=== PATIENT | male | born 1950 | race Caucasian/White ===

== ENCOUNTER 2017-07-18 13:02 | Emergency (ER) | payer BC, MEDICARE, OTHER ==
[2017-07-18 13:31] VITALS: BP 115/81
[2017-07-18 13:50] LABS: CHLORIDE,CL 104 mmol/L (101-111); SODIUM,NA 136 mmol/L (135-145)
--- NOTE | 2017-07-18 14:03 | EDM.PDOC ---
ED HPI GENERAL MEDICAL PROBLEM - General Chief Complaint: Cardiovascular Problem Stated Complaint: HEART PAIN Time Seen by Provider: 07/18/17 13:50 Source of Information: Reports: Patient History Limitations: Reports: No Limitations - History of Present Illness INITIAL COMMENTS - FREE TEXT/NARRATIVE: This 67 yo male patient reports to the ED with an episode of chest pain. The patient reports he has been having similar symptoms over the past 6 weeks. The patient reports he has not been given anything at this time for symptom resolution. The patient reports he will [facility] for further cardiac work. The patient reports he does not have any pain or symptoms at the time of evaluation in the ED. Onset: Today, Sudden Duration: Resolved Prior to Arrival Location: Reports: Chest Quality: Reports: Ache, Sharp Severity: Severe Improves with: Reports: Rest Worsens with: Reports: None Associated Symptoms: Reports: Shortness of Breath (chronic COPD) Mid-Sternal Chest Pain Score (Numeric/FACES): 2 - Related Data Allergies Allergy/AdvReac Type Severity Reaction Status Date / Time sulfamethoxazole Allergy Intermediate Rash Verified 01/31/14 15:38 [From Bactrim] trimethoprim [From Bactrim] Allergy Intermediate Rash Verified 01/31/14 15:38 etodolac [Etodolac] Allergy Mild Nausea Verified 01/31/14 15:39 azithromycin [From Zithromax] Allergy Rash Verified 01/31/14 15:38 simvastatin Allergy muscle ache Verified 01/31/14 15:39 Home Meds: Home Meds Albuterol [Proventil HFA] 2 puff INH QID PRN 01/31/14 [History] Aspirin [Ecotrin] 81 mg PO BEDTIME 01/31/14 [History] Atenolol [Tenormin] 25 mg PO DAILY 01/31/14 [History] Gabapentin [Neurontin] 300 mg PO BEDTIME 01/31/14 [History] Ibuprofen 800 mg PO DAILY 01/31/14 [History] LORazepam [Ativan] 2 mg PO BEDTIME PRN 01/31/14 [History] Lisinopril 10 mg PO DAILY 01/31/14 [History] Nitroglycerin [Nitrostat] 0.4 mg SL 01/31/14 [History] Pantoprazole Sodium [Protonix] 40 mg PO BID 01/31/14 [History] Simvastatin [Zocor] 20 mg PO DAILY 01/31/14 [History] metFORMIN HCl [Metformin HCl ER] 1,000 mg PO BID 01/31/14 [History] Albuterol [Proventil Neb Soln] 0.83 mg NEB Q4HRRT 02/13/15 [History] Amoxicillin/Clavulanate K [Augmentin 875-125 MG] 1 cap PO BID 02/13/15 [History] Budesonide [Pulmicort Flexhaler] 2 puff IH BID 02/13/15 [History] Flunisolide [Nasalide Nasal [place]] 1 spray SONIYA BID 02/13/15 [History] Naproxen 250 mg PO ASDIRECTED 02/13/15 [History] Tiotropium [Spiriva] 18 mcg INH DAILY 02/13/15 [History] Past Medical History HEENT History: Reports: Impaired Vision Cardiovascular History: Reports: High Cholesterol, Hypertension - Past Surgical History Cardiovascular Surgical History: Reports: Coronary Artery Bypass Social & Family History - Tobacco Use Smoking Status *Q: Former Smoker Years of Tobacco use: 40 Packs/Tins Daily: 1.5 Used Tobacco, but Quit: Yes Month Tobacco Last Used: 2016 Second Hand Smoke Exposure: No - Caffeine Use Caffeine Use: Reports: Coffee, Soda - Alcohol Use Days Per Week of Alcohol Use: 0 - Recreational Drug Use Recreational Drug Use: No ED ROS GENERAL - Review of Systems Review Of Systems: ROS reveals no pertinent complaints other than HPI. ED EXAM, GENERAL - Physical Exam Exam: See Below Exam Limited By: No Limitations General Appearance: Alert, WD/WN, No Apparent Distress Eye Exam: Bilateral Eye: EOMI, Normal Inspection, PERRL Ears: Normal External Exam, Normal Canal, Hearing Grossly Normal, Normal TMs Nose: Normal Inspection, Normal Mucosa, No Blood Throat/Mouth: Normal Inspection, Normal Lips, Normal Teeth, Normal Gums, Normal Oropharynx, Normal Voice, No Airway Compromise Head: Atraumatic, Normocephalic Neck: Normal Inspection, Supple, Non-Tender, Full Range of Motion Respiratory/Chest: No Respiratory Distress, No Accessory Muscle Use, Chest Non- Tender, Decreased Breath Sounds Cardiovascular: Normal Peripheral Pulses, Regular Rate, Rhythm, No Edema, No Gallop, No JVD, No Murmur, No Rub GI/Abdominal: Normal Bowel Sounds, Soft, Non-Tender, No Organomegaly, No Distention, No Abnormal Bruit, No Mass (Male) Exam: Deferred Rectal (Males) Exam: Deferred Back Exam: Normal Inspection, Full Range of Motion, NT Extremities: Normal Inspection, Normal Range of Motion, Non-Tender, Normal Capillary Refill, No Pedal Edema Neurological: Alert, Oriented, CN II-XII Intact, Normal Cognition, Normal Gait, Normal Reflexes, No Motor/Sensory Deficits Psychiatric: Normal Affect, Normal Mood Skin Exam: Warm, Dry, Intact, Normal Color, No Rash Lymphatic: No Adenopathy Course - Vital Signs Last Recorded V/S: Last Vital Signs Temp 36.4 C 07/18/17 13:29 Pulse 67 07/18/17 13:29 Resp 16 07/18/17 13:29 BP 115/81 07/18/17 13:29 Pulse Ox 94 L 07/18/17 13:29 - Orders/Labs/Meds Orders: Active Orders 24 hr Category Date Time Status EKG Documentation Completion [RC] URGENT Care 07/18/17 13:16 Active Labs: Laboratory Tests 07/18/17 07/18/17 Range/Units 13:23 13:23 WBC 6.0 (5.0-10.0) 10^3/uL RBC 4.69 (4.6-6.2) 10^6/uL Hgb 14.7 (14.0-18.0) g/dL Hct 43.6 (40.0-54.0) % MCV 93.0 (80-100) fL MCH 31.3 (27.0-34.0) pg MCHC 33.7 (33.0-35.0) g/dL Plt Count 231 (150-450) 10^3/uL Neut % (Auto) 65.2 (42.2-75.2) % Lymph % (Auto) 22.0 (20.5-50.1) % [place] % (Auto) 10.6 H (2-8) % Eos % (Auto) 1.5 (1.0-3.0) % Baso % (Auto) 0.7 (0.0-1.0) % Sodium 136 (135-145) mmol/L Potassium 3.9 (3.6-5.0) mmol/L Chloride 104 (101-111) mmol/L Carbon Dioxide 23.0 (21.0-31.0) mmol/L Anion Gap 12.9 BUN 14 (7-18) mg/dL Creatinine 1.1 (0.6-1.3) mg/dL Est Cr Clr Drug Dosing 67.50 mL/min Estimated GFR (MDRD) > 60 BUN/Creatinine Ratio 12.72 Glucose 119 H (74-105) mg/dL Calcium 9.3 (8.4-10.2) mg/dl Total Bilirubin 0.5 (0.2-1.0) mg/dL AST 20 (10-42) IU/L ALT 16 (10-60) IU/L Alkaline Phosphatase 101 (42-121) IU/L Troponin I < 0.02 (0.00-0.02) ng/ml Total Protein 6.8 (6.7-8.2) g/dl Albumin 4.2 (3.2-5.5) g/dl Globulin 2.6 Albumin/Globulin Ratio 1.62 Departure - Departure Time of Disposition: 13:59 Disposition: Home, Self-Care 01 Condition: Fair Clinical Impression: Chest pain Qualifiers: Chest pain type: unspecified Qualified Code(s): R07.9 - Chest pain, unspecified Instructions: Angina Pectoris, [id number] Referrals: Miguel Berrios MD [Primary Care Provider] - Forms: ED Department Discharge Care Plan Goals: The patient was advised of the examination, lab and EKG results during the visit. The patient should follow-up with his primary care facility or return to the emergency department. If the patient has any additional symptoms or concerns , the patient should follow-up with his primary care facility or return to the emergency department. - My Orders Last 24 Hours: My Active Orders 07/18/17 13:16 EKG Documentation Completion [RC] URGENT - Assessment/Plan Last 24 Hours: My Active Orders 07/18/17 13:16 EKG Documentation Completion [RC] URGENT
--- NOTE | 2017-07-20 11:00 | EKG ---
07/18/2017 - JEROMY ADORNO - FINDINGS: EKG shows a normal sinus rhythm. There is nonspecific T-wave abnormality in the lateral leads. [facility] /[id number]
== END 2017-07-18 14:13 | disposition home or self-care (01) ==
LOC: DL.ED 13:02
DX: R07.9 Chest pain, unspecified (principal); E78.00 Pure hypercholesterolemia, unspecified; I10 Essential (primary) hypertension; Z88.2 Allergy status to sulfonamides; Z88.8 Allergy status to other drugs, medicaments and biological substances; Z87.891 Personal history of nicotine dependence
CPT/HCPCS: 36415; 80053; 84484; 85025; 93005; 93010; 99284; 99285

== ENCOUNTER 2018-10-01 11:07 | Inpatient (IN) | payer MEDICARE, BC ==
[2018-10-01] MEDS ORDERED: Acetaminophen 325 MG Tab PO PRN (15:01)
[2018-10-01] MEDS ORDERED: Bisacodyl 10 MG Supp RECTAL PRN (15:01)
[2018-10-01] MEDS ORDERED: Ibuprofen 200 MG Tab PO PRN (15:05)
[2018-10-01] MEDS ORDERED: Sucralfate Suspension 1 GM/10 ML Cup PO SCH (17:00)
[2018-10-01] MEDS: metFORMIN 500 MG Tab PO SCH (17:31)
[2018-10-01] MEDS: Pantoprazole 40 MG Tab.CR PO SCH (17:31)
[2018-10-01] MEDS: Simethicone 80 MG Tab.Chew PO SCH ×2 (17:31→21:34)
[2018-10-01] MEDS: Potassium Chloride 10 MEQ Tab.ER PO SCH (17:31)
[2018-10-01] MEDS ORDERED: Albuterol/Ipratropium 3.0-0.5 MG/3 ML Neb Soln NEB ONE (18:10)
[2018-10-01] MEDS ORDERED: NICOTINE INH PRN (18:13)
[2018-10-01] MEDS ORDERED: Calcium Carbonate 500 MG Tab.Chew PO ONE (18:29)
[2018-10-01] MEDS ORDERED: Albuterol 0.083% 2.5 MG/3 ML Neb Soln NEB SCH (19:00)
[2018-10-01] MEDS ORDERED: Albuterol/Ipratropium 3.0-0.5 MG/3 ML Neb Soln NEB SCH (19:00)
[2018-10-01] MEDS: Albuterol/Ipratropium 3.0-0.5 MG/3 ML Neb Soln NEB SCH (21:34)
[2018-10-01] MEDS: Gabapentin 300 MG Cap PO SCH (21:34)
[2018-10-01] MEDS: Aspirin 81 MG Tab.EC PO SCH (21:34)
[2018-10-01] MEDS: Mirtazapine 15 MG Tab PO SCH (21:34)
[2018-10-01] MEDS: Topiramate 100 MG Tab PO SCH (21:35)
[2018-10-01] MEDS: BUDESONIDE INH SCH (21:38)
[2018-10-01] MEDS: FORMOTEROL INH SCH (21:38)
[2018-10-01] MEDS: LORazepam 0.5 MG Tab PO PRN (21:49)
[2018-10-02] MEDS: Pantoprazole 40 MG Tab.CR PO SCH ×2 (06:07→17:46)
[2018-10-02] MEDS: Albuterol/Ipratropium 3.0-0.5 MG/3 ML Neb Soln NEB SCH ×4 (08:54→20:59)
[2018-10-02] MEDS: Finasteride 5 MG Tab PO SCH (09:47)
[2018-10-02] MEDS: Levofloxacin 500 MG Tab PO SCH (09:47)
[2018-10-02] MEDS: Simethicone 80 MG Tab.Chew PO SCH ×4 (09:48→21:02)
[2018-10-02] MEDS: metFORMIN 500 MG Tab PO SCH ×2 (09:48→17:45)
[2018-10-02] MEDS: Calcium Carbonate 500 MG Tab.Chew PO SCH ×2 (09:48→17:48)
[2018-10-02] MEDS: Potassium Chloride 10 MEQ Tab.ER PO SCH ×2 (09:48→17:46)
[2018-10-02] MEDS: Fluticasone Propionate Nasal Spray 16 GM Bottle NASBOTH SCH (09:54)
[2018-10-02] MEDS: BUDESONIDE INH SCH ×2 (09:56→20:59)
[2018-10-02] MEDS: CHOLECALCIFEROL 2000 UNIT PO SCH (09:56)
[2018-10-02] MEDS: FORMOTEROL INH SCH ×2 (09:56→20:59)
[2018-10-02] MEDS: Tiotropium Inhaler 18 MCG Inhalation Powder Cap Kit of 5 INH SCH (10:57)
[2018-10-02] MEDS: NICOTINE INH SCH (10:58)
[2018-10-02] MEDS: [UNRECOGNIZED DRUG - REMARK] PO SCH ×2 (13:28→20:59)
[2018-10-02] MEDS ORDERED: Docusate Sodium 100 MG Cap PO PRN (17:09)
[2018-10-02] MEDS: Aspirin 81 MG Tab.EC PO SCH (21:00)
[2018-10-02] MEDS: LORazepam 0.5 MG Tab PO PRN (21:00)
[2018-10-02] MEDS: Topiramate 100 MG Tab PO SCH (21:01)
[2018-10-02] MEDS: Mirtazapine 15 MG Tab PO SCH (21:01)
[2018-10-02] MEDS: Gabapentin 300 MG Cap PO SCH (21:02)
[2018-10-03] MEDS: Pantoprazole 40 MG Tab.CR PO SCH ×2 (05:42→17:15)
[2018-10-03] MEDS: Albuterol/Ipratropium 3.0-0.5 MG/3 ML Neb Soln NEB SCH ×5 (08:36→21:05)
[2018-10-03] MEDS: Fluticasone Propionate Nasal Spray 16 GM Bottle NASBOTH SCH (09:41)
[2018-10-03] MEDS: CHOLECALCIFEROL 2000 UNIT PO SCH (09:41)
[2018-10-03] MEDS: Calcium Carbonate 500 MG Tab.Chew PO SCH ×2 (09:42→17:02)
[2018-10-03] MEDS: Potassium Chloride 10 MEQ Tab.ER PO SCH ×2 (09:42→17:15)
[2018-10-03] MEDS: Levofloxacin 500 MG Tab PO SCH (09:43)
[2018-10-03] MEDS: Finasteride 5 MG Tab PO SCH (09:43)
[2018-10-03] MEDS: Simethicone 80 MG Tab.Chew PO SCH ×4 (09:43→21:03)
[2018-10-03] MEDS: metFORMIN 500 MG Tab PO SCH ×2 (09:43→17:16)
[2018-10-03] MEDS: BUDESONIDE INH SCH ×2 (09:45→21:05)
[2018-10-03] MEDS: FORMOTEROL INH SCH ×2 (09:45→21:05)
[2018-10-03] MEDS: [UNRECOGNIZED DRUG - REMARK] PO SCH ×2 (09:45→21:02)
[2018-10-03] MEDS: Tiotropium Inhaler 18 MCG Inhalation Powder Cap Kit of 5 INH SCH (09:46)
[2018-10-03] MEDS: NICOTINE INH SCH (09:50)
[2018-10-03] MEDS: LACTULOSE 10 GM/15 ML PO PRN (14:46)
[2018-10-03] MEDS: Mirtazapine 15 MG Tab PO SCH (21:01)
[2018-10-03] MEDS: Aspirin 81 MG Tab.EC PO SCH (21:01)
[2018-10-03] MEDS: Topiramate 100 MG Tab PO SCH (21:01)
[2018-10-03] MEDS: Gabapentin 300 MG Cap PO SCH (21:01)
[2018-10-03] MEDS: LORazepam 0.5 MG Tab PO PRN (21:12)
[2018-10-04] MEDS: Pantoprazole 40 MG Tab.CR PO SCH ×2 (06:04→17:58)
[2018-10-04] MEDS: Albuterol/Ipratropium 3.0-0.5 MG/3 ML Neb Soln NEB SCH ×4 (09:11→20:51)
[2018-10-04] MEDS: Potassium Chloride 10 MEQ Tab.ER PO SCH ×2 (09:43→17:58)
[2018-10-04] MEDS: metFORMIN 500 MG Tab PO SCH ×2 (09:43→17:58)
[2018-10-04] MEDS: Levofloxacin 500 MG Tab PO SCH (09:44)
[2018-10-04] MEDS: Finasteride 5 MG Tab PO SCH (09:44)
[2018-10-04] MEDS: CHOLECALCIFEROL 2000 UNIT PO SCH (09:45)
[2018-10-04] MEDS: [UNRECOGNIZED DRUG - REMARK] PO SCH ×2 (09:45→20:45)
[2018-10-04] MEDS: Simethicone 80 MG Tab.Chew PO SCH ×4 (09:45→22:26)
[2018-10-04] MEDS: Fluticasone Propionate Nasal Spray 16 GM Bottle NASBOTH SCH (09:46)
[2018-10-04] MEDS: Tiotropium Inhaler 18 MCG Inhalation Powder Cap Kit of 5 INH SCH (09:46)
[2018-10-04] MEDS: Calcium Carbonate 500 MG Tab.Chew PO SCH ×2 (09:46→18:00)
[2018-10-04] MEDS: FORMOTEROL INH SCH ×2 (09:46→20:48)
[2018-10-04] MEDS: BUDESONIDE INH SCH ×2 (09:46→20:48)
[2018-10-04] MEDS: NICOTINE INH SCH (10:11)
[2018-10-04] MEDS: Megestrol Susp 40 MG/ML 10 ML UD Cup PO SCH (11:08)
[2018-10-04] MEDS: Magnesium Hydroxide 400 MG/5 ML Susp 30 ML Cup PO PRN (16:34)
[2018-10-04] MEDS: Aspirin 81 MG Tab.EC PO SCH (20:45)
[2018-10-04] MEDS: Gabapentin 300 MG Cap PO SCH (20:45)
[2018-10-04] MEDS: Topiramate 100 MG Tab PO SCH (20:45)
[2018-10-04] MEDS: LORazepam 0.5 MG Tab PO PRN (20:46)
[2018-10-04] MEDS: Mirtazapine 15 MG Tab PO SCH (20:46)
[2018-10-04] MEDS: LACTULOSE 10 GM/15 ML PO PRN (20:49)
[2018-10-05] MEDS: Pantoprazole 40 MG Tab.CR PO SCH ×2 (06:25→18:44)
[2018-10-05] MEDS: Albuterol/Ipratropium 3.0-0.5 MG/3 ML Neb Soln NEB SCH ×4 (09:11→21:21)
[2018-10-05] MEDS: Megestrol Susp 40 MG/ML 10 ML UD Cup PO SCH (10:06)
[2018-10-05] MEDS: Potassium Chloride 10 MEQ Tab.ER PO SCH ×2 (10:07→18:44)
[2018-10-05] MEDS: Levofloxacin 500 MG Tab PO SCH (10:07)
[2018-10-05] MEDS: Simethicone 80 MG Tab.Chew PO SCH ×4 (10:07→21:22)
[2018-10-05] MEDS: Calcium Carbonate 500 MG Tab.Chew PO SCH ×2 (10:07→18:44)
[2018-10-05] MEDS: metFORMIN 500 MG Tab PO SCH ×2 (10:07→18:44)
[2018-10-05] MEDS: CHOLECALCIFEROL 2000 UNIT PO SCH (10:08)
[2018-10-05] MEDS: FORMOTEROL INH SCH ×2 (10:08→21:23)
[2018-10-05] MEDS: BUDESONIDE INH SCH ×2 (10:08→21:23)
[2018-10-05] MEDS: Finasteride 5 MG Tab PO SCH (10:08)
[2018-10-05] MEDS: NICOTINE INH SCH (10:09)
[2018-10-05] MEDS: Fluticasone Propionate Nasal Spray 16 GM Bottle NASBOTH SCH (10:09)
[2018-10-05] MEDS: [UNRECOGNIZED DRUG - REMARK] PO SCH ×2 (10:09→21:23)
[2018-10-05] MEDS: Tiotropium Inhaler 18 MCG Inhalation Powder Cap Kit of 5 INH SCH (10:10)
[2018-10-05] MEDS: Magnesium Hydroxide 400 MG/5 ML Susp 30 ML Cup PO PRN (18:44)
[2018-10-05] MEDS: Gabapentin 300 MG Cap PO SCH (21:21)
[2018-10-05] MEDS: Aspirin 81 MG Tab.EC PO SCH (21:21)
[2018-10-05] MEDS: Topiramate 100 MG Tab PO SCH (21:22)
[2018-10-05] MEDS: Mirtazapine 15 MG Tab PO SCH (21:22)
[2018-10-05] MEDS: LORazepam 0.5 MG Tab PO PRN (21:39)
[2018-10-06] MEDS: Albuterol 0.083% 2.5 MG/3 ML Neb Soln NEB PRN ×3 (03:23→23:03)
[2018-10-06] MEDS: Pantoprazole 40 MG Tab.CR PO SCH ×2 (06:04→18:05)
[2018-10-06] MEDS: Finasteride 5 MG Tab PO SCH (08:54)
[2018-10-06] MEDS: Potassium Chloride 10 MEQ Tab.ER PO SCH ×2 (08:54→18:05)
[2018-10-06] MEDS: Megestrol Susp 40 MG/ML 10 ML UD Cup PO SCH (08:54)
[2018-10-06] MEDS: Calcium Carbonate 500 MG Tab.Chew PO SCH ×2 (08:54→18:04)
[2018-10-06] MEDS: metFORMIN 500 MG Tab PO SCH ×2 (08:54→18:04)
[2018-10-06] MEDS: Levofloxacin 500 MG Tab PO SCH (08:54)
[2018-10-06] MEDS: Fluticasone Propionate Nasal Spray 16 GM Bottle NASBOTH SCH (08:57)
[2018-10-06] MEDS: [UNRECOGNIZED DRUG - REMARK] PO SCH ×2 (08:57→21:05)
[2018-10-06] MEDS: FORMOTEROL INH SCH ×2 (08:58→21:04)
[2018-10-06] MEDS: BUDESONIDE INH SCH ×2 (08:58→21:04)
[2018-10-06] MEDS: CHOLECALCIFEROL 2000 UNIT PO SCH (08:59)
[2018-10-06] MEDS: Tiotropium Inhaler 18 MCG Inhalation Powder Cap Kit of 5 INH SCH (09:00)
[2018-10-06] MEDS: NICOTINE INH SCH (09:06)
[2018-10-06] MEDS: Simethicone 80 MG Tab.Chew PO SCH ×4 (09:08→21:00)
[2018-10-06] MEDS: Albuterol/Ipratropium 3.0-0.5 MG/3 ML Neb Soln NEB SCH ×4 (09:27→21:00)
[2018-10-06] MEDS ORDERED: Magnesium Citrate Solution 296 ML Bottle PO ONE (14:42)
[2018-10-06] MEDS: Famotidine 20 MG Tab PO SCH (18:04)
[2018-10-06] MEDS: Aspirin 81 MG Tab.EC PO SCH (21:01)
[2018-10-06] MEDS: Topiramate 100 MG Tab PO SCH (21:01)
[2018-10-06] MEDS: LORazepam 0.5 MG Tab PO PRN (21:02)
[2018-10-06] MEDS: Mirtazapine 15 MG Tab PO SCH (21:02)
[2018-10-06] MEDS: Gabapentin 300 MG Cap PO SCH (21:02)
[2018-10-07] MEDS: Famotidine 20 MG Tab PO SCH (06:10)
[2018-10-07] MEDS: Pantoprazole 40 MG Tab.CR PO SCH ×2 (06:10→17:12)
[2018-10-07] MEDS: Albuterol/Ipratropium 3.0-0.5 MG/3 ML Neb Soln NEB SCH ×4 (08:57→20:38)
--- NOTE | 2018-10-07 09:12 | HP ---
REASON FOR ADMISSION TO [facility]ING [facility]: General debility and weakness following acute hospitalization in [place] from 09/25/2018 to 10/01/2018. HISTORY OF PRESENT ILLNESS: Mr. Metzger initially presented to [place] [facility] on 09/25/2018. At that time, his presenting complaint was of hypoglycemia. He was brought in by ambulance from home. The patient's stated that she had gone out and came back to the house. The patient was not responding well and was found unresponsive. Ambulance checked his blood sugar and found it to be 28, but unable to establish IV access, and they gave him a 1- time dose of glucagon IM. He had been seen several days earlier and was started on treatment for pneumonia. He had been given 1 g Rocephin and placed on oral levofloxacin on an outpatient basis. He also fallen at home without any loss of consciousness and was ambulatory following his fall. In the Emergency Department, he was found to be markedly hypotensive. He was initially given fluid boluses, but was eventually placed on a Levophed drip. He was transferred from [place] to the ICU in [place] with clinical impression of possible sepsis due to pneumonia, altered mental status, fall at home, NSTEMI, acute renal failure, hyponatremia, and hypotension. At the time of his admission to [place], further history showed that he has had a 5-day history of diarrhea with poor oral intake prior to his syncopal episode at home. He continued on vasopressors and had severe hypotension. Care in the ICU was focused on replacement of fluids and electrolytes. He was continued on empiric levofloxacin. There was no evidence for an acute [place]. An echocardiogram performed during that admission showed normal left ventricular function with an ejection fraction of 55% to 60%. He has grade [address] scan of the abdomen and pelvis was performed in [place] when he complained of some abdominal pain. He has had outpatient EGD and colonoscopy as well as a barium enema which were negative and did not provide any specific etiology for his pain. CT scan showed markedly distended urinary bladder due to the outlet obstruction from enlarged prostate. He also noted with dilatation of the ureters and mild bilateral hydronephrosis. He has a 4.1 x 3.7 cm infrarenal abdominal aortic aneurysm. He is also noted to have emphysema and fibrotic changes of both lungs. He worked with Physical and Occupational Therapy during the acute admission. He was started on an Ensure. He was advised to stop smoking. A walking desaturation study showed that he did not require oxygen to maintain saturations 89% or better. He will be continued on antibiotic care in [facility]ing [facility]. PAST MEDICAL HISTORY: Coronary artery disease, chronic low back pain, COPD/emphysema, type 2 diabetes, dyslipidemia, panic disorder, peripheral neuropathy, postherpetic neuralgia, peripheral vascular disease, and tobacco abuse with an approximately [id number] history of smoking. A recent CT scan showed a 4.1 x 3.7 cm infrarenal abdominal aortic aneurysm. PAST SURGICAL HISTORY: 1. Colonoscopy in 01/2011. 2. Coronary artery bypass surgery, 2001. FAMILY HISTORY: Noncontributory. SOCIAL HISTORY: He is . He is a current daily smoker of at least a quarter pack of cigarettes a day and has smoked for 46 years. Does not use smokeless tobacco. No alcohol use. IMMUNIZATION HISTORY: 1. PPV23, 08/07/2005. 2. Tdap, 04/13/2008. No history regarding recent influenza or update to Pneumovax. MEDICATIONS: His medication list is reviewed and reconciled and can be found in [facility]. His usual medications will continue. He also will continue on Levaquin 500 mg p.o. daily for 7 days. He will also continue on cefdinir 300 mg twice daily for 10 days. ALLERGIES: 1. Bactrim/sulfa antibiotics. He is intolerant, develops leg pains. 2. Etodolac. 3. Simvastatin. 4. Intolerant to azithromycin which causes muscle cramps. REVIEW OF SYSTEMS: He will continue on treatment for pneumonia. His coronary artery disease is stable. No further chest pain or symptoms of acute coronary syndrome. Because of his frequent falls prior to admission, he will be referred to PT/OT. He had no significant trauma from recent falls. Head CT performed prior to admission was unremarkable. It was normal except for findings of microvascular ischemic disease as well as atrophy. Abdominal pain has improved with the use of calcium carbonate scheduled twice a day as well as sucralfate 1 g p.o. 4 times a day. A number of medications were discontinued before discharge to Swing [facility]. It included atenolol, Fioricet, and lisinopril. Stool cultures were performed because of the ongoing diarrhea prior to admission. Studies included ovum, parasites, screening, stool culture, as well as C. diff. All of these tests returned within normal limits, and no pathogens were identified. Recent lab work also showed mild normocytic anemia. His renal function has returned to baseline with GFR greater than 60. He is also noted to have hypokalemia during recent admission as well. He continues to be a high risk for fall. Vital signs were stable prior to discharge. He is saturating well on room air. He reported no pain to the nursing staff prior to discharge. He is up to the commode with standby assist but refuses assistance and has been going independently to the bathroom. Appetite remains poor. He likes strawberry Ensure. PHYSICAL EXAMINATION: General: He was awake and alert. He appears tired but participated in the visit. Vital Signs: Blood pressure 129/72 on the left, 119/61 on the right; pulse 82 and regular; respiratory rate 18; oxygen saturation 98% on room air; temperature 98.4. Height 5 feet 11 inches, weight 149 pounds 3.2 ounces. HEENT: Unremarkable. ENT was clear. Head is normocephalic and atraumatic. Extraocular motions were intact. Sclerae were nonicteric. Mouth showed moist mucous membranes. Chest: Showed diminished bilateral breath sounds with occasional wheeze. Heart: Showed regular rate and rhythm. Abdomen: Soft, benign, and nontender with active bowel sounds. Extremities: Showed no edema. Skin: Warm and dry to the touch. Neurological: He is grossly intact. IMPRESSION: A 68-year-old man returns following acute admission in [place] from 09/25/2018 until today. He is admitted for recovery from his recent acute illness as well as for general weakness and debility and high fall risk. He will be referred to Physical and Occupational Therapy. PLAN: 1. Usual medications will be continued. 2. He will continue on Levaquin and cefdinir for treatment of pneumonia. 3. Regular diet. He may need supplements because of poor appetite. Previous chart says he does like strawberry Ensure. STEPHON hose was placed for DVT prophylaxis. 4. Continue with bedside glucose checks. We will continue with once daily bedside glucose checks as blood sugars in [place] seem well controlled. CODE STATUS: Full code. CONDITION AT THE TIME OF ADMISSION TO SWING BED: Hemodynamically stable. [facility] /[id number]
[2018-10-07] MEDS: Simethicone 80 MG Tab.Chew PO SCH ×4 (09:16→20:39)
[2018-10-07] MEDS: metFORMIN 500 MG Tab PO SCH ×2 (09:17→17:11)
[2018-10-07] MEDS: Levofloxacin 500 MG Tab PO SCH (09:17)
[2018-10-07] MEDS: Megestrol Susp 40 MG/ML 10 ML UD Cup PO SCH (09:18)
[2018-10-07] MEDS: Finasteride 5 MG Tab PO SCH (09:18)
[2018-10-07] MEDS: Fluticasone Propionate Nasal Spray 16 GM Bottle NASBOTH SCH (09:20)
[2018-10-07] MEDS: CHOLECALCIFEROL 2000 UNIT PO SCH (09:20)
[2018-10-07] MEDS: [UNRECOGNIZED DRUG - REMARK] PO SCH ×2 (09:21→20:46)
[2018-10-07] MEDS: Potassium Chloride 10 MEQ Tab.ER PO SCH ×2 (09:59→17:16)
[2018-10-07] MEDS: NICOTINE INH SCH (10:00)
[2018-10-07] MEDS: Albuterol 0.083% 2.5 MG/3 ML Neb Soln NEB PRN (11:24)
[2018-10-07] MEDS: Tiotropium Inhaler 18 MCG Inhalation Powder Cap Kit of 5 INH SCH ×2 (12:25→20:47)
[2018-10-07] MEDS: BUDESONIDE INH SCH ×2 (13:00→20:47)
[2018-10-07] MEDS: FORMOTEROL INH SCH ×2 (13:00→20:47)
[2018-10-07] MEDS: Calcium Carbonate 500 MG Tab.Chew PO SCH ×2 (16:05→17:11)
[2018-10-07] MEDS: Gabapentin 300 MG Cap PO SCH (20:39)
[2018-10-07] MEDS: Mirtazapine 15 MG Tab PO SCH (20:39)
[2018-10-07] MEDS: Aspirin 81 MG Tab.EC PO SCH (20:39)
[2018-10-07] MEDS: Topiramate 100 MG Tab PO SCH (20:40)
[2018-10-07] MEDS: ZANTAC 150 MG PO SCH (20:41)
[2018-10-07] MEDS: LORazepam 0.5 MG Tab PO PRN (20:42)
[2018-10-08] MEDS: Pantoprazole 40 MG Tab.CR PO SCH ×2 (06:21→17:34)
[2018-10-08] MEDS: Albuterol/Ipratropium 3.0-0.5 MG/3 ML Neb Soln NEB SCH ×4 (09:05→20:47)
[2018-10-08] MEDS: Finasteride 5 MG Tab PO SCH (09:05)
[2018-10-08] MEDS: metFORMIN 500 MG Tab PO SCH ×2 (09:06→17:34)
[2018-10-08] MEDS: Levofloxacin 500 MG Tab PO SCH (09:07)
[2018-10-08] MEDS: Simethicone 80 MG Tab.Chew PO SCH (09:07)
[2018-10-08] MEDS: Potassium Chloride 10 MEQ Tab.ER PO SCH ×2 (09:07→17:34)
[2018-10-08] MEDS: Fluticasone Propionate Nasal Spray 16 GM Bottle NASBOTH SCH (09:08)
[2018-10-08] MEDS: Megestrol Susp 40 MG/ML 10 ML UD Cup PO SCH (09:08)
[2018-10-08] MEDS: Calcium Carbonate 500 MG Tab.Chew PO SCH (09:08)
[2018-10-08] MEDS: [UNRECOGNIZED DRUG - REMARK] PO SCH ×2 (09:09→20:47)
[2018-10-08] MEDS: BUDESONIDE INH SCH ×2 (09:10→20:49)
[2018-10-08] MEDS: FORMOTEROL INH SCH ×2 (09:10→20:49)
[2018-10-08] MEDS: CHOLECALCIFEROL 2000 UNIT PO SCH (09:10)
[2018-10-08] MEDS: ZANTAC 150 MG PO SCH ×2 (09:10→20:48)
[2018-10-08] MEDS: NICOTINE INH SCH (09:18)
[2018-10-08] MEDS ORDERED: Calcium Carbonate 500 MG Tab.Chew PO PRN (10:21)
[2018-10-08] MEDS ORDERED: Simethicone 80 MG Tab.Chew PO PRN (10:22)
[2018-10-08] MEDS: Gabapentin 300 MG Cap PO SCH (20:45)
[2018-10-08] MEDS: Aspirin 81 MG Tab.EC PO SCH (20:45)
[2018-10-08] MEDS: Mirtazapine 15 MG Tab PO SCH (20:45)
[2018-10-08] MEDS: Topiramate 100 MG Tab PO SCH (20:45)
[2018-10-08] MEDS: LORazepam 0.5 MG Tab PO PRN (20:45)
[2018-10-08] MEDS: Tiotropium Inhaler 18 MCG Inhalation Powder Cap Kit of 5 INH SCH (20:47)
[2018-10-09] MEDS: Pantoprazole 40 MG Tab.CR PO SCH (05:51)
[2018-10-09] MEDS: Albuterol/Ipratropium 3.0-0.5 MG/3 ML Neb Soln NEB SCH ×3 (07:25→14:03)
[2018-10-09 07:59] VITALS: BP 152/55
[2018-10-09] MEDS: ZANTAC 150 MG PO SCH (08:21)
[2018-10-09] MEDS: metFORMIN 500 MG Tab PO SCH (08:21)
[2018-10-09] MEDS: Levofloxacin 500 MG Tab PO SCH (08:21)
[2018-10-09] MEDS: Finasteride 5 MG Tab PO SCH (08:21)
[2018-10-09] MEDS: Fluticasone Propionate Nasal Spray 16 GM Bottle NASBOTH SCH (08:21)
[2018-10-09] MEDS: Potassium Chloride 10 MEQ Tab.ER PO SCH (08:21)
[2018-10-09] MEDS: CHOLECALCIFEROL 2000 UNIT PO SCH (08:21)
[2018-10-09] MEDS: NICOTINE INH SCH (08:21)
[2018-10-09] MEDS: FORMOTEROL INH SCH (08:22)
[2018-10-09] MEDS: [UNRECOGNIZED DRUG - REMARK] PO SCH (08:22)
[2018-10-09] MEDS: BUDESONIDE INH SCH (08:22)
[2018-10-09] MEDS: Megestrol Susp 40 MG/ML 10 ML UD Cup PO SCH (08:24)
[2018-10-09] MEDS ORDERED: ZANTAC 150 MG PO SCH (09:40)
[2018-10-09] MEDS ORDERED: Lidocaine 2% Jelly 10 ML Urojet MUCMEM ONE (10:32)
--- NOTE | 2018-10-09 11:12 | PCM.DCSUM1 ---
Discharge Summary - Hospital Course Free Text/Narrative:: 68 y/o male with end-stage COPD/emphysema who was admitted from [facility]. Patient was admitted for weakness and multiple falls at home prior to admission. PT/OT worked with the patient. He was noted to have urinary retention. Agreed to have james catheter placed. Patient is being discharged home with home health nursing and PT. He is to follow up with his PCP Dr. Jensen/Dr. Humphrey and have PCP refer to urologist. Disciplines required in the home: a. Correction: medication management, weight loss/diet; james care. b. PT for strengthening/Home exercise program. Patient requires a walker/1 caregiver in order to leave his home. He displays inability to leave home and leaving home requires taxing effort due to shortness of breath and weakness Diagnosis: Stroke: No - Discharge Data Discharge Date: 10/09/18 Discharge Disposition: Home, W Home Health Agency 06 Condition: Good - Discharge Diagnosis/Problem(s) (1) Weakness SNOMED Code(s): 53126751 ICD Code: R53.1 - WEAKNESS Status: Resolved Current Visit: Yes (2) Fall at home SNOMED Code(s): 27769603 ICD Code: W19.XXXA - UNSPECIFIED FALL, INITIAL ENCOUNTER; Y92.009 - UNSP PLACE IN UNSP NON-INSTITUT (PRIVATE) RESIDENCE PLACE Status: Resolved Current Visit: No (3) Urinary retention due to benign prostatic hyperplasia SNOMED Code(s): 058199142 ICD Code: N40.1 - BENIGN PROSTATIC HYPERPLASIA WITH LOWER URINARY TRACT SYMP ; R33.8 - OTHER RETENTION OF URINE Status: Acute Priority: High Current Visit: Yes - Patient Summary/Data Consults: Consultations 10/01/18 15:04 OT Evaluation and Treatment [CONS] Routine PT Evaluation and Treatment [CONS] Routine - Patient Instructions Diet: Diabetic Diet Activity: As Tolerated Driving: Do Not Drive Showering/Bathing: May Shower Showering/Bathing, Other: With help. Other/Special Instructions: Bloody urine, cloudy urine, or any concerns. - Discharge Plan *PRESCRIPTION DRUG MONITORING PROGRAM REVIEWED*: Not Applicable *COPY OF PRESCRIPTION DRUG MONITORING REPORT IN PATIENT ERNESTINA: Not Applicable Prescriptions/Med Rec: Cefdinir 300 mg PO BIDMEALS #5 capsule Home Medications: Home Meds Albuterol [Proventil HFA] 2 puff INH QID PRN 01/31/14 [History] Aspirin [Ecotrin] 81 mg PO BEDTIME 01/31/14 [History] Gabapentin [Neurontin] 300 mg PO BEDTIME 01/31/14 [History] Albuterol [Proventil Neb Soln] 0.83 mg NEB Q4HRRT 02/13/15 [History] Tiotropium [Spiriva HandiHaler] 18 mcg INH DAILY 02/13/15 [History] Ibuprofen 200 mg PO BID PRN 07/17/18 [History] LORazepam 0.5 mg PO BEDTIME PRN 07/17/18 [History] Mirtazapine 7.5 mg PO BEDTIME 07/17/18 [History] Topiramate 100 mg PO BEDTIME 07/17/18 [History] metFORMIN HCl [Metformin HCl] 1,000 mg PO BID 07/18/18 [History] Albuterol/Ipratropium [DuoNeb 3.0-0.5 MG/3 ML] 3 ml NEB Q4H #60 neb 07/20/18 [Rx ] Budesonide/Formoterol [Symbicort 160-4.5 MCG] 2 puff INH BID 09/25/18 [History] Cyclobenzaprine [Flexeril] 5 mg PO Q8H PRN 09/25/18 [History] Fluticasone Propionate [Flonase] 1 spray NASBOTH DAILY 09/25/18 [History] Pantoprazole Sodium [Protonix] 40 mg PO DAILY PRN 09/25/18 [History] atorvaSTATin [Lipitor] 5 mg PO BEDTIME 09/25/18 [History] Cholecalciferol (Vitamin D3) [Vitamin D3] 2,000 units PO DAILY 10/01/18 [History ] Finasteride [Proscar] 5 mg PO DAILY 10/01/18 [History] Megestrol [Megace 40 MG/ML Susp] 20 ml PO DAILY 10/01/18 [History] Nitroglycerin 0.4 mg SL ASDIRECTED PRN 10/01/18 [History] Potassium Chloride 20 meq PO BID 10/01/18 [History] Simethicone 160 mg PO QID 10/01/18 [History] Sucralfate [Carafate] 10 ml PO QID 10/01/18 [History] Nicotine [Nicotrol NS] 1 inhalation IH DAILY 10/02/18 [History] Ranitidine [Zantac] 150 mg PO BID 10/06/18 [History] Cefdinir 300 mg PO BIDMEALS #5 capsule 10/09/18 [Rx] Megestrol [Megace 40 MG/ML Susp] 400 mg PO DAILY cup 10/09/18 [Rx] Patient Handouts: Indwelling Urinary Catheter Care, Adult, Cefdinir capsules, Hyponatremia, [id number], Indwelling Urinary Catheter Insertion, Hypotension, [id number], Indwelling Urinary Catheter Care, Adult, [id number], Kegel Exercises, Acute Urinary Retention, Male, [id number], Hypoglycemia, Easy-to- Read Referrals: Major Jensen NP [Ordering Only Provider] - - Discharge Summary/Plan Comment DC Time >30 min.: Yes - General Info Date of Service: 10/09/18 Admission Dx/Problem (Free Text: Weakness, recurrent falls. Functional Status: Reports: Ambulating (Weakness. Risk of falls. ), Urinating ( Incontinent of urine. Has urinary retention. ) - Review of Systems General: Reports: Weakness HEENT: Reports: No Symptoms Pulmonary: Reports: Shortness of Breath Cardiovascular: Reports: No Symptoms Gastrointestinal: Reports: No Symptoms Genitourinary: Reports: Incontinence, Other (Urinary retention.) Musculoskeletal: Reports: No Symptoms Skin: Reports: No Symptoms Neurological: Reports: No Symptoms Psychiatric: Reports: No Symptoms - Patient Data Vitals - Most Recent: Last Vital Signs Temp 97.3 F 10/09/18 07:56 Pulse 102 H 10/09/18 07:56 Resp 20 10/09/18 07:56 BP 152/55 H 10/09/18 07:56 Pulse Ox 100 10/09/18 07:56 Orthostatic Blood Pressure [ 105/62 Standing] Orthostatic Blood Pressure [ 110/62 Sitting] Orthostatic Blood Pressure [ 114/63 Supine] Weight - Most Recent: 142 lb 3.2 oz I&O - Last 24 hours: Intake & Output 10/08/18 10/09/18 10/09/18 22:59 06:59 14:59 Intake Total 540 150 Balance 540 150 Lab Results - Last 24 hrs: Laboratory Results - last 24 hr 10/09/18 10/09/18 Range/Units 07:37 09:35 POC Glucose 157 H (83-110) mg/dl Urine Color Yellow (YELLOW) Urine Appearance Clear (CLEAR) Urine pH 7.0 (5.0-9.0) Ur Specific [place] 1.015 (1.005-1.030) Urine Protein Negative (NEGATIVE) Urine Glucose (UA) Negative (NEGATIVE) Urine Ketones Negative (NEGATIVE) Urine Occult Blood Negative (NEGATIVE) Urine Nitrite Negative (NEGATIVE) Urine Bilirubin Negative (NEGATIVE) Urine Urobilinogen 0.2 (0.2-1.0) mg/dL Ur Leukocyte Esterase Negative (NEGATIVE) Med Orders - Current: Current Medications Acetaminophen (Tylenol) 650 mg PO Q4H PRN PRN Reason: Pain (mild 1-3 )/fever Last Admin: 10/05/18 10:16 Dose: 650 mg Albuterol (Proventil Neb Soln) 2.5 mg NEB Q4HRRT PRN PRN Reason: Shortness of Breath Last Admin: 10/07/18 11:24 Dose: 2.5 mg Albuterol/Ipratropium (Duoneb 3.0-0.5 Mg/3 Ml) 3 ml NEB QID [facility] Last Admin: 10/09/18 10:38 Dose: Not Given Aspirin (Halfprin) 81 mg PO BEDTIME [facility] Last Admin: 10/08/18 20:45 Dose: 81 mg Bisacodyl (Dulcolax) 10 mg RECTAL DAILY PRN PRN Reason: Constipation Calcium Carbonate/Glycine (Tums) 500 mg PO BIDM PRN PRN Reason: Cramping Finasteride (Proscar) 5 mg PO DAILY [facility] Last Admin: 10/09/18 08:21 Dose: 5 mg Fluticasone Propionate (Flonase) 0 gm NASBOTH DAILY [facility] Last Admin: 10/09/18 08:21 Dose: 1 spray Gabapentin (Neurontin) 300 mg PO BEDTIME [facility] Last Admin: 10/08/18 20:45 Dose: 300 mg Ibuprofen (Motrin) 200 mg PO BID PRN PRN Reason: Pain Lorazepam (Ativan) 0.5 mg PO BEDTIME PRN PRN Reason: Anxiety Last Admin: 10/08/18 20:45 Dose: 0.5 mg Magnesium Hydroxide (Milk Of Magnesia) 30 ml PO DAILY PRN PRN Reason: Constipation Last Admin: 10/05/18 18:44 Dose: 30 ml Megestrol Acetate (Megace 40 Mg/Ml Susp) 400 mg PO DAILY [facility] Last Admin: 10/09/18 08:24 Dose: 400 mg Metformin HCl (Glucophage) 1,000 mg PO BIDMEALS [facility] Last Admin: 10/09/18 08:21 Dose: 1,000 mg Mirtazapine (Remeron) 7.5 mg PO BEDTIME [facility] Last Admin: 10/08/18 20:45 Dose: 7.5 mg Cefdinir 300mg Cap (*Non-Form Med) 0 each PO BID [facility] Stop: 10/11/18 21:01 Last Admin: 10/09/18 08:22 Dose: 1 each Pantoprazole Sodium (Protonix) 40 mg PO BIDAC [facility] Last Admin: 10/09/18 05:51 Dose: 40 mg Budesonide/Formoterol 160/4.5 * *Pt's Own Med 0 each INH BID [facility] Last Admin: 10/09/18 08:22 Dose: 1 each Cholecalciferol ( Vitamin D3) 2,000 Units Pt's Own Med 0 each PO DAILY [facility] Last Admin: 10/09/18 08:21 Dose: 1 each Nicotine [Nicotrol Inhaler] Pt's Own Med 0 each INH DAILY [facility] Last Admin: 10/09/18 08:21 Dose: Not Given Nicotine [Nicotrol Inhaler] Pt's Own Med 1 each INH QID PRN PRN Reason: Other Lactulose ( Constulose) 10g/15 Ml Soln *Own Med* 0 each PO BEDTIME PRN PRN Reason: Constipation Last Admin: 10/04/18 20:49 Dose: 1 each Zantac 150mg Pt's (Own Med) 0 each PO BID [facility] Potassium Chloride (Klor-Con 10) 20 meq PO BIDMEALS [facility] Last Admin: 10/09/18 08:21 Dose: 20 meq Senna/Docusate Sodium (Senna Plus) 1 tab PO BID [facility] Last Admin: 10/09/18 08:21 Dose: 1 tab Simethicone (Simethicone) 160 mg PO QID PRN PRN Reason: Indigestion Tiotropium [place] (Spiriva Handihaler) 18 mcg INH DAILY@2100 [facility] Last Admin: 10/08/18 20:47 Dose: 1 puff Topiramate (Topamax) 100 mg PO BEDTIME [facility] Last Admin: 10/08/18 20:45 Dose: 100 mg Discontinued Medications Albuterol (Proventil Neb Soln) 2.5 mg NEB Q4HRRT [facility] Albuterol/Ipratropium (Duoneb 3.0-0.5 Mg/3 Ml) 3 ml NEB Q4HRRT [facility] Last Admin: 10/01/18 17:44 Dose: 3 ml Albuterol/Ipratropium (Duoneb 3.0-0.5 Mg/3 Ml) 3 ml NEB ONETIME ONE Stop: 10/01/18 18:11 Last Admin: 10/01/18 21:33 Dose: Not Given Calcium Carbonate/Glycine (Tums) 500 mg PO BIDM [facility] Last Admin: 10/08/18 09:08 Dose: 500 mg Calcium Carbonate/Glycine (Tums) 500 mg PO ONETIME ONE Stop: 10/01/18 18:30 Last Admin: 10/01/18 21:33 Dose: Not Given Docusate Sodium (Colace) 100 mg PO DAILY PRN PRN Reason: Constipation Last Admin: 10/02/18 21:16 Dose: 100 mg Famotidine (Pepcid) 20 mg PO BIDAC [facility] Last Admin: 10/07/18 06:10 Dose: 20 mg Levofloxacin (Levaquin) 500 mg PO DAILY [facility] Stop: 10/09/18 09:01 Last Admin: 10/09/18 08:21 Dose: 500 mg Lidocaine HCl (Xylocaine 2% Jelly) 10 ml MUCMEM ONETIME ONE Stop: 10/09/18 10:33 Last Admin: 10/09/18 11:00 Dose: 10 ml Magnesium Citrate (Citrate Of Magnesia) 296 ml PO ONETIME ONE Stop: 10/06/18 14:43 Last Admin: 10/06/18 15:30 Dose: 296 ml Zantac 150mg Pt's (Own Med) 20 each PO BID [facility] Last Admin: 10/09/18 08:21 Dose: 20 each Senna/Docusate Sodium (Senna Plus) 1 tab PO ONETIME ONE Stop: 10/05/18 10:01 Last Admin: 10/05/18 10:07 Dose: 1 tab Simethicone (Simethicone) 160 mg PO QID [facility] Last Admin: 10/08/18 09:07 Dose: 160 mg Sucralfate (Carafate) 1 gm PO QIDACANDBED [facility] Last Admin: 10/01/18 17:31 Dose: 1 gm Tiotropium [place] (Spiriva Handihaler) 18 mcg INH DAILY [facility] Last Admin: 10/07/18 12:25 Dose: Not Given - Exam General: Reports: Alert, Oriented, Cooperative HEENT: Reports: Pupils Equal, Pupils Reactive, EOMI, Mucous Membr. Moist/[place] Neck: Reports: Supple Lungs: Reports: Clear to Auscultation, Normal Respiratory Effort Cardiovascular: Reports: Regular Rate, Regular Rhythm GI/Abdominal Exam: Normal Bowel Sounds, Soft, Non-Tender, No Organomegaly, No Distention, No Abnormal Bruit, No Mass, Pelvis Stable (Male) Exam: Other (Distended bladder. ) Rectal (Males) Exam: Deferred Back Exam: Reports: Normal Inspection, Other (Deferred) Extremities: Normal Inspection, Normal Range of Motion, Non-Tender, No Pedal Edema, Normal Capillary Refill Skin: Reports: Warm, Dry, Intact Wound/Incisions: Reports: Other (None)
[2018-10-09 13:27] LABS: ANION GAP 14.6
== END 2018-10-09 12:27 | disposition home health service (06) | DRG 947 ==
LOC: DL.MS 13:43 → UNDOADMIN 13:43 → DL.MS 14:56
PROVIDERS: ADMIT Internal Medicine; ATTEND Internal Medicine
DX: R53.1 Weakness (principal); J18.9 Pneumonia, unspecified organism; N13.30 Unspecified hydronephrosis; B02.29 Other postherpetic nervous system involvement; R53.81 Other malaise; N40.1 Benign prostatic hyperplasia with lower urinary tract symptoms; R33.8 Other retention of urine; R29.6 Repeated falls; Z91.81 History of falling; J43.9 Emphysema, unspecified; I25.10 Atherosclerotic heart disease of native coronary artery without angina pectoris; G89.29 Other chronic pain; M54.5 Low back pain; E11.9 Type 2 diabetes mellitus without complications; E78.5 Hyperlipidemia, unspecified; F41.0 Panic disorder [episodic paroxysmal anxiety]; G62.9 Polyneuropathy, unspecified; F17.210 Nicotine dependence, cigarettes, uncomplicated; I71.4 Abdominal aortic aneurysm, without rupture; G31.9 Degenerative disease of nervous system, unspecified; D64.9 Anemia, unspecified; Z95.1 Presence of aortocoronary bypass graft; Z79.899 Other long term (current) drug therapy; Z88.2 Allergy status to sulfonamides; Z88.8 Allergy status to other drugs, medicaments and biological substances
CPT/HCPCS: 36415; 51702; 80069; 81003; 82962; 94640; 97110-GO; 97110-GP; 97116-GP; 97162-GP; 97165-GO; 97530-GO; 97530-GP; A9270-GY; J7613-GY; J7620-GY

== ENCOUNTER 2019-02-13 15:28 | Inpatient (IN) | payer MEDICARE, BC ==
[2019-02-13] MEDS ORDERED: Ondansetron 4 MG Tab.DIS PO PRN (16:23)
[2019-02-13] MEDS ORDERED: Acetaminophen 325 MG Tab PO PRN (16:23)
[2019-02-13] MEDS ORDERED: Nitroglycerin 0.4 MG Tab.SL SL PRN (16:26)
[2019-02-13] MEDS ORDERED: Albuterol 0.083% 2.5 MG/3 ML Neb Soln INH PRN (16:26)
[2019-02-13] MEDS ORDERED: Ibuprofen 200 MG Tab PO PRN (16:26)
[2019-02-13] MEDS ORDERED: Polyethylene Glycol 3350 Powder 17 GM Packet PO PRN (16:26)
[2019-02-13] MEDS ORDERED: Albuterol 6.7 GM Inhaler INH PRN (16:26)
[2019-02-13] MEDS ORDERED: Cyclobenzaprine 10 MG Tab PO PRN (16:26)
[2019-02-13] MEDS ORDERED: Sodium Chloride 0.9% 1,000 ML IV SCH (16:30)
[2019-02-13] MEDS ORDERED: guaiFENesin 100 MG/5 ML Soln 5 ML UD Cup PO PRN (16:34)
[2019-02-13] MEDS ORDERED: Benzonatate 100 MG Cap PO PRN (16:34)
[2019-02-13] MEDS ORDERED: Insulin Lispro 100 Units/ML 3 ML Vial SUBCUT PRN (16:36)
[2019-02-13] MEDS: Budesonide 0.5 MG/2 ML Neb Susp NEB SCH (17:09)
[2019-02-13] MEDS: Albuterol/Ipratropium 3.0-0.5 MG/3 ML Neb Soln NEB SCH (17:09)
[2019-02-13] MEDS: methylPREDNISolone Sodium Succinate 40 MG/1 ML SDV IVPUSH SCH (17:39)
[2019-02-13] MEDS: Levofloxacin/Dextrose 5%-Water 500 MG in Premix Bag 1 BAG IV SCH (17:41)
[2019-02-13] MEDS: Gabapentin 300 MG Cap PO SCH (20:41)
[2019-02-13] MEDS: Famotidine 20 MG Tab PO SCH (20:41)
[2019-02-13] MEDS: Aspirin 81 MG Tab.EC PO SCH (20:41)
[2019-02-13] MEDS: Topiramate 100 MG Tab PO SCH (20:41)
[2019-02-13] MEDS: Mirtazapine 15 MG Tab PO SCH (20:41)
[2019-02-13] MEDS: LORazepam 0.5 MG Tab PO PRN (20:41)
[2019-02-13] MEDS: Insulin Lispro 100 Units/ML 3 ML Vial SUBCUT SCH (20:59)
[2019-02-13] MEDS ORDERED: ROSUVASTATIN 5 MG PO SCH (21:00)
[2019-02-13] MEDS: Heparin Sodium 5,000 Units/ML Vial SUBCUT SCH (21:54)
--- NOTE | 2019-02-14 00:02 | HP ---
CHIEF COMPLAINT: Increasing shortness of breath. HISTORY OF PRESENTING ILLNESS: Mr. Yassine Christiansen is a 68-year-old male with a medical historysignificant for hypertension hyperlipidemia, type 2 diabetes mellitus, coronary artery disease status post coronary artery bypass graft, history of benign prostatic hypertrophy, urinary retention, requiring a Raymundo catheter in place, chronic tobacco use, posttraumatic stress disorder, peripheral vascular disease, peripheral neuropathy, has been doctoring in the outpatient clinic for increasing shortness of breath and has been treated with oral antibiotic steroids and nebulizers and has failed outpatient treatment requiring admission to the hospital. At this time, the patient says that he has been sick for the last 1 week to 10 days, which has been progressively getting worse. He has been increasingly short of breath. He grades the shortness of breath as 8/10 in intensity, which gets aggravated on exertion, relieved with rest. Associated with cough with sputum, which is greenish yellow in color. Denies any fevers or chills. He has been on oral antibiotics including Augmentin in the last 5 to 7 days. Denies any nausea or vomiting, but complains of having diarrhea. He had at least 2 episodes of diarrhea each day in the last 2 to 3 days. Denies any abdominal pain. Denies any sick contacts. Denies any recent travel. The patient denied any history of chest pain on exertion, but has dyspnea on exertion. No history of orthopnea or paroxysmal nocturnal dyspnea. The patient denied any history of hematemesis, hematochezia, or melenic stools. Normal bowel and bladder habits otherwise. REVIEW OF SYSTEMS: A complete review of systems including skin, ear, nose, and throat, cardiovascular system, respiratory system, gastrointestinal system, genitourinary system, hematology, oncology, neurology, allergy, immunology, constitutional were all evaluated and were negative except for the above-said notes. PAST MEDICAL HISTORY: Significant for hypertension, hyperlipidemia, type 2 diabetes mellitus, coronary artery disease status post coronary artery bypass graft, posttraumatic stress disorder, peripheral vascular disease, chronic history of tobacco use, panic disorder, benign prostatic hypertrophy, urinary retention, requiring Raymundo catheter in place. PAST SURGICAL HISTORY: Significant for colonoscopy, coronary artery bypass graft. FAMILY HISTORY: The patient claims that his mom and dad have . SOCIAL HISTORY: The patient continues to smoke 1 pack of cigarettes a day. History of occasional alcohol use. ALLERGIES: The patient noted to have allergies to Bactrim, sulfa, simvastatin, and azithromycin. HOME MEDICATIONS: Include metformin 1000 mg twice a day, Lipitor 5 mg at bedtime, topiramate 100 mg at bedtime, Spiriva 18 mcg inhalation daily, sucralfate 10 mL oral 4 times a day, simethicone 160 mg 4 times a day, ranitidine 150 mg twice a day, potassium chloride 20 mEq twice a day, nitroglycerin 0.4 mg sublingual as needed for chest pain, mirtazapine 7.5 mg at bedtime, lorazepam 0.5 mg at bedtime as needed, Neurontin 300 mg at bedtime, Flonase 1 spray in both the nares daily, Proscar 5 mg daily, Flexeril 5 mg every 8 hours as needed, vitamin D3, 2000 international units daily, aspirin 81 mg daily, DuoNeb every 4 hours, Proventil 2 puffs inhalation 4 times a day as needed. PHYSICAL EXAMINATION: General: The patient is well oriented to time, place, and person. Follows commands spontaneously. Cardiovascular system: S1, S2 heard with normal intensity. No gallops. Respiratory system: Bilateral crepitations at the bases. No wheeze. Abdomen: Soft. Bowel sounds positive. Nontender. No rigidity. Extremities: No edema, bilateral lower extremities. Neurologic: No gross focal neurological deficit. LABORATORY DATA: Labs as obtained from [facility] show sodium 142, potassium 4, chloride 106, bicarb 25.2, BUN 21, creatinine 1.3. WBC 15.4, hemoglobin 15.6, hematocrit 45.8, platelet count 347. ASSESSMENT: 1. Pneumonia. 2. Acute chronic obstructive pulmonary disease exacerbation. 3. Hypertension. 4. Hyperlipidemia. 5. Type 2 diabetes mellitus. 6. Coronary artery disease, status post coronary artery bypass graft. 7. Chronic tobacco use and abuse. PLAN: 1. Pneumonia. The patient presents with cough with sputum with greenish yellow-colored phlegm. He is also noted to have leukocytosis. We will obtain blood cultures and sputum cultures. We will have him on IV antibiotics. He has failed outpatient treatment with Augmentin. We will have him on Levaquin for now as he is allergic to azithromycin. We will titrate the antibiotics once we have the culture reports available. 2. Acute chronic obstructive pulmonary disease exacerbation. The patient does not have any wheeze on physical exam today. We will have him on nebulizer DuoNeb and Pulmicort nebulizer and we will start him on low-dose steroids and we will closely follow. We will encourage the patient to use incentive spirometer and flutter valve. 3. Hypertension. The patient's blood pressure will be closely monitored. Avoid any hypotensive episodes. He is not on any active antihypertensive medications. 4. Type 2 diabetes mellitus. The patient noted to be on metformin. We will hold the metformin while in the hospital. Check his fingersticks with each meal. Have him on supplemental scale insulin as needed for additional coverage of his blood glucose. The patient will be started on some steroids as blood sugars could be elevated. 5. Urinary retention. The patient has chronic indwelling Raymundo catheter in place. Continue the same. He will need Urology consultation as an outpatient. 6. Coronary artery disease. The patient denies any ongoing chest pains. He is not on any beta-sanjuana or ABIODUN inhibitor. We will closely follow. 7. DVT prophylaxis. We will have him on heparin for DVT prophylaxis. 8. Tobacco abuse. The patient is educated about tobacco cessation. Strongly encouraged him to quit smoking, which he understands and verbalized the same. 9. Code status. The patient wants to be full code. 10.Discussed with Major Jensen from Clinic regarding the plan of care. Reviewed the labs and medications. Reviewed the old charts. [facility] /[id number]
[2019-02-14] MEDS: methylPREDNISolone Sodium Succinate 40 MG/1 ML SDV IVPUSH SCH ×3 (01:05→17:41)
[2019-02-14] MEDS: Albuterol/Ipratropium 3.0-0.5 MG/3 ML Neb Soln NEB SCH ×4 (01:05→23:07)
[2019-02-14] MEDS: Heparin Sodium 5,000 Units/ML Vial SUBCUT SCH ×3 (06:21→21:31)
[2019-02-14 06:34] LABS: ANION GAP 14.2
[2019-02-14] MEDS: Budesonide 0.5 MG/2 ML Neb Susp NEB SCH ×3 (06:42→17:46)
[2019-02-14] MEDS: Insulin Lispro 100 Units/ML 3 ML Vial SUBCUT SCH ×4 (08:08→21:21)
[2019-02-14] MEDS: Finasteride 5 MG Tab PO SCH (08:46)
[2019-02-14] MEDS: Montelukast 10 MG Tab PO SCH (08:47)
[2019-02-14] MEDS: Cholecalciferol (Vitamin D3) 1,000 Unit Tab PO SCH (08:47)
[2019-02-14] MEDS: Fluticasone Propionate Nasal Spray 16 GM Bottle NASBOTH SCH (08:47)
[2019-02-14] MEDS: Famotidine 20 MG Tab PO SCH ×2 (08:47→21:12)
[2019-02-14] MEDS: Tiotropium Inhaler 18 MCG Inhalation Powder Cap Kit of 5 INH SCH (08:47)
[2019-02-14] MEDS: Megestrol Susp 40 MG/ML 10 ML UD Cup PO SCH (08:49)
--- NOTE | 2019-02-14 13:15 | PN ---
DATE: 02/14/2019 SUBJECTIVE: Mr. Kuldip Metzger is a 68-year-old male with medical history significant for hypertension, hyperlipidemia, type 2 diabetes mellitus; coronary artery disease, status post coronary artery bypass graft; history of benign prostatic hypertrophy, urinary retention requiring a Raymundo catheter in place, chronic tobacco use, post-traumatic stress disorder, peripheral vascular disease, peripheral neuropathy, admitted to the hospital after failed outpatient treatment for possible pneumonia and COPD exacerbation. For the past 24 hours, the patient continues to have mild shortness of breath 3/10 to 4/10 in intensity, aggravated on exertion, relieved with rest, continued with nebulizers and IV antibiotics and steroids. Denies any abdominal pain. No nausea. No vomiting. No diarrhea. REVIEW OF SYSTEMS: Cardiovascular, respiratory, gastrointestinal, neurology, constitutional were all evaluated. PHYSICAL EXAMINATION: Vital Signs: Temperature of 97.8, pulse of 86, blood pressure 118/81, respiratory rate of 18, and saturating at 97% on room air. General Appearance: The patient is well-oriented to time, place, and person. Follows commands spontaneously. Cardiovascular: S1 and S2 heard with normal intensity. No gallops. Respiratory: Clear to auscultation bilaterally. No wheeze. No crepitations. Abdomen: Soft. Bowel sounds positive. Nontender. No rigidity. No guarding. No rebound tenderness. Extremities: No edema in bilateral lower extremities. Noted to have mild, healing, small, dry wound noted to the lateral aspect of the great toe on the right side. MEDICATIONS: Reviewed. Continue with: 1. Tylenol 650 every 4 hours as needed for pain and fever. 2. DuoNeb 3 mL nebulizer q.8 hourly. 3. Aspirin 81 mg daily. 4. Tessalon Perles 100 mg 3 times a day as needed for cough. 5. Pulmicort 0.5 mg nebulizer twice a day. 6. Vitamin D3 2000 units daily. 7. Flexeril every 8 hours as needed. 8. Pepcid 20 mg twice a day. 9. Proscar 5 mg daily. 10.Flonase daily. 11.Neurontin 300 mg at bedtime. 12.Heparin 5000 subcu q.8 hourly. 13.Levaquin IV daily 500 mg. 14.Magnesium oxide 250 mg twice a day. 15.Methylprednisolone 40 mg IV q.8 hourly. 16.Spiriva 18 mcg inhalation daily. 17.Topamax 100 mg at bedtime. LABORATORY DATA: Reviewed. 1. WBC 10.9, hemoglobin 14.5, hematocrit 42.1, platelet count 316. 2. Sodium 137, potassium 4.2, chloride 110, bicarb 17, BUN 20, creatinine 1.2, and glucose 139. 3. Magnesium 1.03. ASSESSMENT: 1. Pneumonia. 2. Acute chronic obstructive pulmonary disease exacerbation. 3. Hypertension. 4. Hyperlipidemia. 5. Type 2 diabetes mellitus. 6. Coronary artery disease, status post coronary artery bypass graft. 7. Chronic tobacco use and continued use. 8. Hypomagnesemia. PLAN: 1. Pneumonia. The patient is admitted with pneumonia. He is noted to have cough with sputum production, which is greenish-yellow in color. Ordered for blood cultures and sputum cultures. The sputum culture shows polymicrobial lucio. We will follow with ID and susceptibility on the sputum culture. He has tested negative for influenza. We will closely follow. 2. COPD exacerbation. The patient is currently on DuoNeb and Pulmicort nebulizer and also on IV methylprednisone. The patient is encouraged to use incentive spirometer and flutter valve for better pulmonary toileting. 3. Hypertension. The patient's blood pressure seems to be in acceptable range. Continue current treatment plan. 4. Type 2 diabetes mellitus. Check his fingersticks with each meals, have him on supplemental scale insulin as needed. Try to avoid any hypoglycemic episodes. Have him on hypoglycemic protocol. 5. The patient was noted to have elevated lactic acid at the time of admission, but that has improved. 6. Malnutrition. The patient noted to have decreased appetite. The patient is encouraged to use either Boost or Ensure Clear to improve his strength. [facility] /[id number]
[2019-02-14] MEDS: Levofloxacin/Dextrose 5%-Water 500 MG in Premix Bag 1 BAG IV SCH (17:43)
[2019-02-14] MEDS: Aspirin 81 MG Tab.EC PO SCH (21:11)
[2019-02-14] MEDS: Topiramate 100 MG Tab PO SCH (21:12)
[2019-02-14] MEDS: Gabapentin 300 MG Cap PO SCH (21:12)
[2019-02-14] MEDS: LORazepam 0.5 MG Tab PO PRN (21:14)
[2019-02-14] MEDS: Mirtazapine 15 MG Tab PO SCH (21:14)
[2019-02-15] MEDS: methylPREDNISolone Sodium Succinate 40 MG/1 ML SDV IVPUSH SCH ×2 (01:06→08:49)
[2019-02-15] MEDS: Heparin Sodium 5,000 Units/ML Vial SUBCUT SCH ×3 (05:53→21:15)
[2019-02-15 07:11] LABS: ANION GAP 14.2; CHLORIDE,CL 107 mmol/L (101-111); SODIUM,NA 137 mmol/L (135-145)
[2019-02-15] MEDS: Albuterol/Ipratropium 3.0-0.5 MG/3 ML Neb Soln NEB SCH ×3 (08:20→22:15)
[2019-02-15] MEDS: Budesonide 0.5 MG/2 ML Neb Susp NEB SCH ×3 (08:20→17:01)
[2019-02-15] MEDS: Montelukast 10 MG Tab PO SCH (08:49)
[2019-02-15] MEDS: Finasteride 5 MG Tab PO SCH (08:49)
[2019-02-15] MEDS: Fluticasone Propionate Nasal Spray 16 GM Bottle NASBOTH SCH (08:49)
[2019-02-15] MEDS: Tiotropium Inhaler 18 MCG Inhalation Powder Cap Kit of 5 INH SCH (08:49)
[2019-02-15] MEDS: Cholecalciferol (Vitamin D3) 1,000 Unit Tab PO SCH (08:49)
[2019-02-15] MEDS: Famotidine 20 MG Tab PO SCH ×2 (08:49→21:14)
[2019-02-15] MEDS: Insulin Lispro 100 Units/ML 3 ML Vial SUBCUT SCH ×4 (08:50→21:15)
[2019-02-15] MEDS: Megestrol Susp 40 MG/ML 10 ML UD Cup PO SCH (08:58)
--- NOTE | 2019-02-15 11:27 | PN ---
DATE: 02/15/2019 HISTORY: Mr. Kuldip Metzger is a 68-year-old male with a medical history significant for hypertension, hyperlipidemia, type 2 diabetes mellitus, coronary artery disease, status post coronary artery bypass graft, benign prostatic hypertrophy, urinary retention, requiring Raymundo catheter in place, peripheral neuropathy. Admitted with increasing shortness of breath and noted to have pneumonia and COPD exacerbation and has failed outpatient treatment. For the last 24 hours, the patient continues to feel weak and tired. He complains of mild shortness of breath associated with cough. Denies any chest pain. No abdominal pain. No nausea. No vomiting. No diarrhea. REVIEW OF SYSTEMS: Cardiovascular; respiratory; gastrointestinal; neurology; constitutional were all evaluated. PHYSICAL EXAMINATION: Vital Signs: Temperature of 98.2, pulse of 109, blood pressure 122/68, respiratory rate of 20, saturating at 98%. General Appearance: The patient is well oriented to time, place, and person. Follows commands spontaneously. Cardiovascular: S1 and S2 heard with normal intensity. No gallops. Respiratory: Mild wheeze noted. Mild crepitations at the bases. Abdomen: Soft. Bowel sounds positive. Nontender. No rigidity. Extremities: No edema of bilateral lower extremities. Neurology: No gross focal neurological deficit. MEDICATIONS: Reviewed. Continue the same. We will change IV methylprednisone to oral prednisone. Continue with the nebulizer treatment; Pulmicort and DuoNeb nebulizer. He is encouraged to use incentive spirometer and flutter valve. We will change the IV levofloxacin to oral Levaquin. LABORATORY DATA: Sodium 137, potassium 4.2, chloride 107, bicarb 20, BUN 21, creatinine 1.1, glucose 161, magnesium 1.6. ASSESSMENT: 1. Acute chronic obstructive pulmonary disease exacerbation. 2. Possible pneumonia. 3. Hypertension. 4. Hyperlipidemia. 5. Type 2 diabetes mellitus. 6. Coronary artery disease, status post coronary artery bypass graft. 7. Chronic tobacco use and continued use. 8. Hypomagnesemia. PLAN: 1. Pneumonia. The patient does not have any fevers. He is noted have mild leukocytosis; could be resulting from steroids, so for his cultures remained negative. We will switch him to oral antibiotic with Levaquin. 2. Acute COPD exacerbation. Mild wheeze noted on the physical exam. We will continue with DuoNeb and Pulmicort nebulizer. The patient is encouraged to use incentive spirometer and flutter valve. We will switch him to oral steroids at this time. 3. Hypertension. Closely followed. Avoid any hypotensive episodes. 4. Hypomagnesemia. Continue with oral magnesium oxide. We will recheck a magnesium level in a.m. 5. Chronic indwelling Raymundo catheter. The patient is noted to be on Proscar continue the same. 6. Chronic tobacco use. The patient was educated about tobacco cessation on this admission. He is strongly encouraged to quit smoking which he understands and verbalized the same. 7. Malnutrition. The patient is encouraged to drink Ensure Clear. [facility] /[id number]
[2019-02-15] MEDS: Levofloxacin 500 MG Tab PO SCH (12:54)
[2019-02-15] MEDS: Mirtazapine 15 MG Tab PO SCH (21:14)
[2019-02-15] MEDS: Gabapentin 300 MG Cap PO SCH (21:14)
[2019-02-15] MEDS: Aspirin 81 MG Tab.EC PO SCH (21:14)
[2019-02-15] MEDS: Topiramate 100 MG Tab PO SCH (21:16)
[2019-02-16] MEDS: Heparin Sodium 5,000 Units/ML Vial SUBCUT SCH (05:02)
[2019-02-16] MEDS: Budesonide 0.5 MG/2 ML Neb Susp NEB SCH (06:48)
[2019-02-16] MEDS: Albuterol/Ipratropium 3.0-0.5 MG/3 ML Neb Soln NEB SCH (06:48)
[2019-02-16 07:53] VITALS: BP 123/87
[2019-02-16] MEDS ORDERED: FLUVASTATIN 20 MG PO SCH (08:00)
[2019-02-16] MEDS ORDERED: predniSONE 20 MG Tab PO SCH (08:00)
[2019-02-16] MEDS: Finasteride 5 MG Tab PO SCH (09:05)
[2019-02-16] MEDS: Famotidine 20 MG Tab PO SCH (09:06)
[2019-02-16] MEDS: Montelukast 10 MG Tab PO SCH (09:06)
[2019-02-16] MEDS: Cholecalciferol (Vitamin D3) 1,000 Unit Tab PO SCH (09:06)
[2019-02-16] MEDS: Fluticasone Propionate Nasal Spray 16 GM Bottle NASBOTH SCH (09:07)
[2019-02-16] MEDS: Megestrol Susp 40 MG/ML 10 ML UD Cup PO SCH (09:08)
[2019-02-16] MEDS: Tiotropium Inhaler 18 MCG Inhalation Powder Cap Kit of 5 INH SCH (09:08)
[2019-02-16] MEDS: Insulin Lispro 100 Units/ML 3 ML Vial SUBCUT SCH (09:13)
[2019-02-16] MEDS: Levofloxacin 500 MG Tab PO SCH (12:22)
--- NOTE | 2019-02-16 14:27 | DISCH ---
ADMITTING DIAGNOSES: 1. Acute chronic obstructive pulmonary disease exacerbation. 2. Possible pneumonia. DISCHARGE DIAGNOSES: 1. Acute Chronic obstructive pulmonary disease exacerbation, improved. 2. Possible pneumonia, resolved with oral antibiotic. 3. Generalized weakness and debility from malnutrition. The patient encouraged to have good oral intake and he will benefit from dietitian consultation as an outpatient. HISTORY OF PRESENTING ILLNESS: Mr. Kuldip Metzger is a 68-year-old male with a medical history significant for hypertension, hyperlipidemia, type 2 diabetes mellitus, coronary artery disease, status post coronary artery bypass graft; history of benign prostatic hypertrophy, urinary retention, requiring a Raymundo catheter in place, chronic tobacco use, admitted to the hospital with complaints of increasing shortness of breath and noted to be in COPD exacerbation with underlying possible pneumonia and generalized weakness from malnutrition. While in the hospital, the patient was treated with IV antibiotic with Levaquin. He responded well to the treatment. He was also given IV methylprednisone and also nebulizer treatment. He was advised to continue with incentive spirometer and flutter valve. He will be advised to follow with primary care physician next 1 week of time. He is given prescription for DuoNeb nebulizer and we will continue with budesonide inhalation twice a day at home. He is advised to follow with Pulmonary Clinic as an outpatient. He says he follows with the [place] [facility]. He is advised to follow with them as an outpatient. He is given tapered dose of steroids and also oral antibiotic. He is discharged home in stable condition. DISCHARGE MEDICATIONS: Include: 1. Proventil 2 puffs inhalation 4 times a day as needed for dyspnea. 2. DuoNeb 3 mL nebulizer inhalation 3 times a day. 3. Aspirin 81 mg at bedtime. 4. Symbicort 2 puffs inhalation twice daily. 5. Vitamin D3 2000 units daily. 6. Flexeril 5 mg every 8 hours as needed for muscle pains relaxant. 7. Proscar 5 mg daily. 8. Flonase 1 spray in nostril both daily. 9. Fluvastatin 20 mg on Saturday, Saturday, and Saturday. 10.Neurontin 300 mg at bedtime. 11.Ibuprofen 200 mg twice a day. 12.Lorazepam 0.25 mg at bedtime. 13.Magnesium oxide 250 mg twice daily. 14.Megace 10 mL oral daily. 15.Mirtazepine 7.5 mg at bedtime. 16.Singulair 10 mg daily. 17.Nicotine inhalation daily. 18.Nitroglycerin 0.4 mg sublingual as needed for chest pain. 19.MiraLax 17 g oral daily for constipation. 20.Zantac 150 mg twice a day. 21.Rosuvastatin 2.5 mg as directed on Saturday, Saturday, and Saturday. 22.Senokot 2 tablets twice a day. 23.Spiriva 18 mcg inhalation daily. 24.Topiramate 100 mg at bedtime. 25.Levofloxacin 500 mg daily for next 5 days. 26.Metformin 1000 mg twice a day. 27.Prednisone tapered dose. PHYSICAL EXAMINATION: On the day of discharge: Vital Signs: Temperature of 98, pulse of 80, blood pressure 123/87, respiratory rate of 18, and saturating at 95% on room air. General Appearance: The patient is well oriented to time, place, and person. Follows commands spontaneously. Cardiovascular: S1 and S2 heard with normal intensity. No gallops. Respiratory: Clear to auscultation bilaterally. No wheeze. No crepitations. Abdomen: Soft. Bowel sounds positive. Nontender. No rigidity. Extremities: No edema of bilateral lower extremities. Neurology: No gross focal neurological deficits. CONDITION ON ADMISSION: Poor. CONDITION ON DISCHARGE: Stable. DIET: Cardiac healthy diet and consistent carbohydrate diet. ACTIVITY: As tolerated. FOLLOWUP: Follow with primary care physician next 1 week of time. I spent over 35 minutes of time in evaluating and treating this patient and making discharge plans. [facility] /[id number] ISHA
== END 2019-02-16 12:50 | disposition home or self-care (01) | DRG 190 ==
LOC: DL.MS 15:28 → UNDOADMIN 15:28 → DL.MS 16:23
PROVIDERS: ADMIT Internal Medicine; ATTEND Internal Medicine
DX: J44.1 Chronic obstructive pulmonary disease with (acute) exacerbation (principal); J18.9 Pneumonia, unspecified organism; E46 Unspecified protein-calorie malnutrition; Z68.1 Body mass index [BMI] 19.9 or less, adult; I10 Essential (primary) hypertension; E78.5 Hyperlipidemia, unspecified; I25.10 Atherosclerotic heart disease of native coronary artery without angina pectoris; F43.10 Post-traumatic stress disorder, unspecified; E11.51 Type 2 diabetes mellitus with diabetic peripheral angiopathy without gangrene; R33.9 Retention of urine, unspecified; E83.42 Hypomagnesemia; E11.42 Type 2 diabetes mellitus with diabetic polyneuropathy; F41.0 Panic disorder [episodic paroxysmal anxiety]; F17.210 Nicotine dependence, cigarettes, uncomplicated; Z88.1 Allergy status to other antibiotic agents; Z88.2 Allergy status to sulfonamides; Z88.8 Allergy status to other drugs, medicaments and biological substances; Z95.1 Presence of aortocoronary bypass graft; Z79.84 Long term (current) use of oral hypoglycemic drugs; Z79.82 Long term (current) use of aspirin
CPT/HCPCS: 36415; 80048; 82962; 83605; 83735; 84100; 85027; 87040; 87070; 87077; 87186; 87205; 87804; 94010; 94640; 94667; 97162-GP; 97165-GO; A4217; A9270-GY; J1815; J1956; J2920; J7030; J7613-GY; J7620-GY

== ENCOUNTER 2019-12-23 10:53 | Inpatient (IN) | payer MEDICARE, BC, OTHER ==
--- NOTE | 2019-12-23 11:22 | EDM.PDOC ---
ED HPI GENERAL MEDICAL PROBLEM - General Chief Complaint: Respiratory Problem Stated Complaint: SHORTNESS OF BREATH Time Seen by Provider: 12/23/19 11:05 Source of Information: Reports: Patient History Limitations: Reports: No Limitations - History of Present Illness INITIAL COMMENTS - FREE TEXT/NARRATIVE: This 69 yo male patient reports to the ED with increased shortness of breath. The patient reports he has been having shortness of breath for years (COPD), but it has been worse lately. The patient was started on Levaquin and Prednisone last Saturday (12/15/19) and has been taking them as prescribed. The patient reports he was seen again in the Clinic on Saturday. At the conclusion of that visit, the patient was advised to continue to take the medications, but if his symptoms continue to go to the emergency department for further evaluation. The patient reports he has done 3 nebulizer treatments today with no improvement in his symptoms. The patient reports he smokes 1 -1 1/2 packs of cigarettes per day and has had 4 cigarettes today. 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: Breathing Treatments, Other Medication(s) - Related Data Allergies Allergy/AdvReac Type Severity Reaction Status Date / Time sulfamethoxazole Allergy Intermediate Rash Verified 12/23/19 10:59 [From Bactrim] trimethoprim [From Bactrim] Allergy Intermediate Rash Verified 12/23/19 10:59 etodolac [Etodolac] Allergy Mild Nausea Verified 12/23/19 10:59 azithromycin [From Zithromax] Allergy Rash Verified 12/23/19 10:59 simvastatin Allergy muscle ache Verified 12/23/19 10:59 Sulfa (Sulfonamide Allergy Cannot Verified 12/23/19 10:59 Antibiotics) Remember Home Meds: Home Meds Albuterol [Proventil HFA] 2 puff INH QID PRN 01/31/14 [History] Aspirin [Ecotrin EC] 81 mg PO BEDTIME 01/31/14 [History] Gabapentin [Neurontin] 300 mg PO BEDTIME 01/31/14 [History] Tiotropium [Spiriva HandiHaler] 18 mcg INH DAILY 02/13/15 [History] Ibuprofen 200 mg PO BID PRN 07/17/18 [History] LORazepam 0.25 mg PO BEDTIME PRN 07/17/18 [History] Mirtazapine 7.5 mg PO BEDTIME 07/17/18 [History] Topiramate 100 mg PO BEDTIME 07/17/18 [History] metFORMIN HCl [Metformin HCl] 1,000 mg PO BID 07/18/18 [History] Budesonide/Formoterol [Symbicort 160-4.5 MCG] 2 puff INH BID 09/25/18 [History] Cyclobenzaprine [Flexeril] 5 mg PO Q8H PRN 09/25/18 [History] Fluticasone Propionate [Flonase] 1 spray NASBOTH DAILY 09/25/18 [History] Cholecalciferol (Vitamin D3) [Vitamin D3] 2,000 units PO DAILY 10/01/18 [History ] Finasteride [Proscar] 5 mg PO DAILY 10/01/18 [History] Megestrol [Megace 40 MG/ML Susp] 10 ml PO DAILY 10/01/18 [History] Nitroglycerin 0.4 mg SL ASDIRECTED PRN 10/01/18 [History] Nicotine [Nicotrol NS] 1 inhalation IH DAILY 10/02/18 [History] Ranitidine [Zantac] 150 mg PO BID 10/06/18 [History] Albuterol [Proventil Neb Soln] 3 ml INH Q4HR PRN 02/13/19 [History] Fluvastatin [Lescol] 20 mg PO .MON,WED,FRI 02/13/19 [History] Montelukast Sodium [Singulair] 10 mg PO DAILY 02/13/19 [History] Rosuvastatin Calcium 2.5 mg PO ASDIRECTED 02/13/19 [History] Sennosides/Docusate Sodium [Senna-S] 2 tab PO BID 02/13/19 [History] polyethylene glycoL 3350 [MiraLAX] 17 gm PO DAILY PRN 02/13/19 [History] Albuterol/Ipratropium [DuoNeb 3.0-0.5 MG/3 ML] 3 ml NEB TID 30 Days #90 neb [Rx] Magnesium Oxide 250 mg PO BIDM 7 Days #14 tablet 02/16/19 [Rx] levoFLOXacin [Levaquin] 500 mg PO Q24H 5 Days #5 tablet 02/16/19 [Rx] predniSONE [Prednisone] 2.5 mg PO DAILY 3 Days #3 tablet 02/16/19 [Rx] predniSONE [Prednisone] 5 mg PO DAILY 3 Days #3 tablet 02/16/19 [Rx] predniSONE [Prednisone] 10 mg PO DAILY 3 Days #3 tablet 02/16/19 [Rx] predniSONE [Prednisone] 20 mg PO DAILY 3 Days #3 tablet 02/16/19 [Rx] Past Medical History HEENT History: Reports: Impaired Vision Cardiovascular History: Reports: High Cholesterol, Hypertension, GA Respiratory History: Reports: COPD, Pneumonia, Recurrent, Pulmonary Fibrosis, SOB Gastrointestinal History: Reports: GERD, Other (See Below) Other Gastrointestinal History: Hernia Repair-unbilical Genitourinary History: Reports: Prostate Disorder, Retention, Urinary Musculoskeletal History: Reports: Other (See Below) Other Musculoskeletal History: rotator cuff tear-right Neurological History: Reports: Concussion, Migraines, Neuropathy, Peripheral Psychiatric History: Reports: Anxiety, PTSD Endocrine/Metabolic History: Reports: Diabetes, Type II - Infectious Disease History Infectious Disease History: Reports: Chicken Pox, Shingles - Past Surgical History Cardiovascular Surgical History: Reports: Coronary Artery Bypass GI Surgical History: Reports: Hernia, Abdominal Neurological Surgical History: Reports: Lumbar Spine Social & Family History - Family History Family Medical History: Noncontributory - Tobacco Use Smoking Status *Q: Current Every Day Smoker Years of Tobacco use: 50 Packs/Tins Daily: 1 - Caffeine Use Caffeine Use: Reports: None - Recreational Drug Use Recreational Drug Use: No ED ROS GENERAL - Review of Systems Review Of Systems: Comprehensive ROS is negative, except as noted in HPI. ED EXAM, GENERAL - Physical Exam Exam: See Below Exam Limited By: No Limitations General Appearance: Alert, WD/WN, Moderate Distress, Thin Eye Exam: Bilateral Eye: EOMI, Normal Inspection, PERRL Ears: Normal External Exam, Normal Canal, Hearing Grossly Normal, Normal TMs Nose: Normal Inspection, Normal Mucosa, No Blood Throat/Mouth: Normal Inspection, Normal Lips, Normal Teeth, Normal Gums, Normal Oropharynx, Normal Voice, No Airway Compromise Head: Atraumatic, Normocephalic Neck: Normal Inspection, Supple, Non-Tender, Full Range of Motion Respiratory/Chest: Decreased Breath Sounds (throughout), Other (atalectic sounds throughout lung bases) Cardiovascular: Normal Peripheral Pulses, Regular Rate, Rhythm, No Edema, No Gallop, No JVD, No Murmur, No Rub GI/Abdominal: Normal Bowel Sounds, Soft, Non-Tender, No Organomegaly, No Distention, No Abnormal Bruit, No Mass (Male) Exam: Deferred Rectal (Males) Exam: Deferred Back Exam: Normal Inspection, Full Range of Motion, NT Extremities: Normal Inspection, Normal Range of Motion, Non-Tender, Normal Capillary Refill, No Pedal Edema Neurological: Alert, Oriented, CN II-XII Intact, Normal Cognition, Normal Gait, Normal Reflexes, No Motor/Sensory Deficits Psychiatric: Normal Affect, Normal Mood Skin Exam: Warm, Dry, Intact, Normal Color, No Rash Lymphatic: No Adenopathy Course - Vital Signs Last Recorded V/S: Last Vital Signs Temp 36.7 C 12/23/19 10:56 Pulse 96 12/23/19 10:56 Resp 20 12/23/19 10:56 BP 137/74 12/23/19 10:56 Pulse Ox 94 L 12/23/19 10:56 - Orders/Labs/Meds Orders: Active Orders 24 hr Category Date Time Status EKG Documentation Completion [RC] URGENT Care 12/23/19 11:16 Active CULTURE BLOOD [BC] Stat Lab 12/23/19 11:35 Received CULTURE BLOOD [BC] Stat Lab 12/23/19 12:44 Ordered Piperacillin/Tazobactam [Zosyn] 3.375 gm Med 12/23/19 12:50 Ordered Sodium Chloride 0.9% [Normal Saline] 100 ml IV ONETIME Sodium Chloride 0.9% [Normal Saline] 1,000 ml Med 12/23/19 12:50 Ordered IV .BOLUS Medication Orders Piperacillin Sod/Tazobactam (Sod 3.375 gm/ Sodium Chloride) 100 mls @ 200 mls/ hr IV ONETIME ONE Stop: 12/23/19 13:19 Sodium Chloride (Normal Saline) 1,000 mls @ 250 mls/hr IV .BOLUS ONE Stop: 12/23/19 16:49 Labs: Laboratory Tests 12/23/19 12/23/19 12/23/19 Range/Units 11:37 11:37 11:37 WBC 16.6 H (5.0-10.0) 10^3/uL RBC 4.45 L (4.6-6.2) 10^6/uL Hgb 14.0 (14.0-18.0) g/dL Hct 42.8 (40.0-54.0) % MCV 96.2 D (80-100) fL MCH 31.5 (27.0-34.0) pg MCHC 32.7 L (33.0-35.0) g/dL Plt Count 174 D (150-450) 10^3/uL Neut % (Auto) 95.8 H (42.2-75.2) % Lymph % (Auto) 2.1 L (20.5-50.1) % Lassen % (Auto) 1.7 L (2-8) % Eos % (Auto) 0.2 L (1.0-3.0) % Baso % (Auto) 0.2 (0.0-1.0) % Sodium 139 (136-145) mmol/L Potassium 4.4 (3.5-5.1) mmol/L Chloride 100 (98-107) mmol/L Carbon Dioxide 28 (21-32) mmol/L Anion Gap 15.4 H (7-13) mEq/L BUN 25 H (7-18) mg/dL Creatinine 1.11 (0.70-1.30) mg/dL Est Cr Clr Drug Dosing 51.85 mL/min Estimated GFR (MDRD) > 60 BUN/Creatinine Ratio 22.5 (No establ ref range) Glucose 125 H (74-99) mg/dL Lactic Acid 5.1 H* (0.4-2.0) mmol/L Calcium 8.8 (8.5-10.1) mg/dL Total Bilirubin 0.3 (0.2-1.0) mg/dL AST 14 L (15-37) U/L ALT 17 (16-63) U/L Alkaline Phosphatase 96 (46-116) U/L Troponin I < 0.017 (0.000-0.056) ng/mL Total Protein 6.4 (6.4-8.2) g/dL Albumin 3.5 (3.4-5.0) g/dL Globulin 2.9 Albumin/Globulin Ratio 1.2 Meds: Medications Generic Name Dose Route Start Last Admin Trade Name Freq PRN Reason Stop Dose Admin Piperacillin Sod/Tazobactam 100 mls @ 200 mls/hr 12/23/19 12:50 Sod 3.375 gm/ Sodium Chloride IV 12/23/19 13:19 ONETIME ONE Sodium Chloride 1,000 mls @ 250 mls/hr 12/23/19 12:50 Normal Saline IV 12/23/19 16:49 .BOLUS ONE Departure - Departure Time of Disposition: 12:54 Disposition: Admitted As Inpatient 64 Condition: Serious Clinical Impression: COPD exacerbation Pneumonia Qualifiers: Pneumonia type: due to unspecified organism Laterality: unspecified laterality Lung location: unspecified part of lung Qualified Code(s): J18.9 - Pneumonia, unspecified organism - Discharge Information *PRESCRIPTION DRUG MONITORING PROGRAM REVIEWED*: Not Applicable *COPY OF PRESCRIPTION DRUG MONITORING REPORT IN PATIENT ERNESTINA: Not Applicable Care Plan Goals: Discussed the patient's history, examination, lab, EKG and x-ray results with Dr. Lopez. Dr. Lopez accepted the patient for continued evaluation and management as an inpatient at [facility]. Sepsis Event Note - Evaluation Sepsis Screening Result: No Definite Risk - Focused Exam Vital Signs: Vital Signs Temp Pulse Resp BP Pulse Ox 12/23/19 10:56 36.7 C 96 20 137/74 94 L Date Exam was Performed: 12/23/19 Time Exam was Performed: 12:53 - My Orders Last 24 Hours: My Active Orders 12/23/19 11:16 EKG Documentation Completion [RC] URGENT 12/23/19 11:35 CULTURE BLOOD [BC] Stat 12/23/19 12:44 CULTURE BLOOD [BC] Stat 12/23/19 12:50 Piperacillin/Tazobactam [Zosyn] 3.375 gm Sodium Chloride 0.9% [Normal Saline] 100 ml IV ONETIME Sodium Chloride 0.9% [Normal Saline] 1,000 ml IV .BOLUS - Assessment/Plan Last 24 Hours: My Active Orders 12/23/19 11:16 EKG Documentation Completion [RC] URGENT 12/23/19 11:35 CULTURE BLOOD [BC] Stat 12/23/19 12:44 CULTURE BLOOD [BC] Stat 12/23/19 12:50 Piperacillin/Tazobactam [Zosyn] 3.375 gm Sodium Chloride 0.9% [Normal Saline] 100 ml IV ONETIME Sodium Chloride 0.9% [Normal Saline] 1,000 ml IV .BOLUS
[2019-12-23 12:05] LABS: ANION GAP 15.4 mEq/L (7-13); CHLORIDE,CL 100 mmol/L (98-107); SODIUM,NA 139 mmol/L (136-145)
--- NOTE | 2019-12-23 12:38 | CR ---
EXAMINATION: Chest 2V SEX: Male AGE: 69 years CLINICAL HISTORY: 75-year-old male (smoker with COPD) complaining of short of breath. INTERPRETATION: Abnormal but unchanged when compared to 25 September 2018 exam. 1. Sternotomy wires and external cardiac moderate. 2. Small cardiac silhouette with prominent proximal pulmonary artery segments. No pulmonary vascular congestion, cephalization of vascular flow, alveolar edema or new dependent pleural fluid accumulation. 3. No new lung mass or hilar lymphadenopathy. 4. Chronic generalized air trapping and bullous emphysematous changes (pleural-parenchymal scarring left base). 5. No new focal lobar consolidation IE no new infiltrate, atelectasis or collapse. 6. No pneumothorax or pneumomediastinum. CONCLUSION: No acute new cardiopulmonary abnormality.
[2019-12-23] MEDS ORDERED: Piperacillin/Tazobactam 3.375 GM in Sodium Chloride 0.9% 100 ML IV ONE (12:50)
[2019-12-23] MEDS ORDERED: Sodium Chloride 0.9% 1,000 ML IV ONE ×2 (12:50→17:00)
[2019-12-23] MEDS ORDERED: Magnesium Hydroxide 400 MG/5 ML Susp 30 ML Cup PO PRN (14:28)
[2019-12-23] MEDS ORDERED: Acetaminophen 325 MG Tab PO PRN (14:28)
[2019-12-23] MEDS ORDERED: Docusate Sodium 100 MG Cap PO PRN (14:28)
[2019-12-23] MEDS ORDERED: Ondansetron 4 MG/2 ML SDV IVPUSH PRN (14:28)
--- NOTE | 2019-12-23 14:57 | PCM.HP ---
H&P History of Present Illness - General Date of Service: 12/23/19 Admit Problem/Dx: Admission Diagnosis/Problem Admission Diagnosis/Problem Pneumonia Source of Information: Patient History Limitations: Reports: No Limitations - History of Present Illness Initial Comments - Free Text/Narative: Patient is 69-year-old male with past medical history of COPD, continue tobacco abuse and BPH, on March managed with chronic Raymundo. He presented to the ED for evaluation of increasing shortness of breath for the past 2-4 weeks. Patient reports she is having increasing shortness of breath for the past 2-4 weeks. This is getting progressively worse. He was seen on the clinic on the 12/15/19 and was started on Levaquin and Prednisone last and has been taking them as prescribe. There was no improvement uncertain possible to the clinic on Saturday. He was advised to take Synthroid medication and goes to the ED if no further improvement. He came to the ED today because surface of the hospital gotten any better. He had 3 nebulizer treatments today with no improvement. The patient reports he smokes 1 -1 1/2 packs of cigarettes per day and has had 4 cigarettes today. He reports cough productive of greenish sputum. He notes wheezing. He denies fever, but notes chills. He denies chest pain. No history of sick contact or recent travel. He denies abdominal pain, nausea, vomiting, diarrhea. In the ED labs revealed WBC 16.4 with a left shift, anion gap 15.4, lactate 5.1. Chest x-ray showed no acute changes. Onset of Symptoms: Reports: Gradual Duration of Symptoms: Reports: Week(s): Location: Reports: Chest Quality: Reports: Other (SOB) Improves with: Reports: None Worsens with: Reports: None Associated Symptoms: Reports: Cough, cough w sputum, Shortness of Breath - Related Data Allergies/Adverse Reactions: Allergies Allergy/AdvReac Type Severity Reaction Status Date / Time sulfamethoxazole Allergy Intermediate Rash Verified 12/23/19 14:05 [From Bactrim] trimethoprim [From Bactrim] Allergy Intermediate Rash Verified 12/23/19 14:05 etodolac [Etodolac] Allergy Mild Nausea Verified 12/23/19 14:05 azithromycin [From Zithromax] Allergy Rash Verified 12/23/19 14:05 simvastatin Allergy muscle ache Verified 12/23/19 14:05 Sulfa (Sulfonamide Allergy Cannot Verified 12/23/19 14:05 Antibiotics) Remember Home Medications: Home Meds Albuterol [Proventil HFA] 2 puff INH QID PRN 01/31/14 [History] Aspirin [Ecotrin EC] 81 mg PO BEDTIME 01/31/14 [History] Gabapentin [Neurontin] 300 mg PO BEDTIME 01/31/14 [History] Tiotropium [Spiriva HandiHaler] 18 mcg INH DAILY 02/13/15 [History] Ibuprofen 200 mg PO BID PRN 07/17/18 [History] LORazepam 0.25 mg PO BEDTIME PRN 07/17/18 [History] Mirtazapine 7.5 mg PO BEDTIME 07/17/18 [History] Topiramate 100 mg PO BEDTIME 07/17/18 [History] metFORMIN HCl [Metformin HCl] 1,000 mg PO BID 07/18/18 [History] Budesonide/Formoterol [Symbicort 160-4.5 MCG] 2 puff INH BID 09/25/18 [History] Cyclobenzaprine [Flexeril] 5 mg PO Q8H PRN 09/25/18 [History] Fluticasone Propionate [Flonase] 1 spray NASBOTH DAILY 09/25/18 [History] Cholecalciferol (Vitamin D3) [Vitamin D3] 2,000 units PO DAILY 10/01/18 [History ] Finasteride [Proscar] 5 mg PO DAILY 10/01/18 [History] Nitroglycerin 0.4 mg SL ASDIRECTED PRN 10/01/18 [History] Albuterol [Proventil Neb Soln] 3 ml INH Q4HR PRN 02/13/19 [History] Fluvastatin [Lescol] 20 mg PO .MON,WED,FRI 02/13/19 [History] Montelukast Sodium [Singulair] 10 mg PO DAILY 02/13/19 [History] Sennosides/Docusate Sodium [Senna-S] 2 tab PO BID 02/13/19 [History] polyethylene glycoL 3350 [MiraLAX] 17 gm PO DAILY PRN 02/13/19 [History] predniSONE [Prednisone] 20 mg PO DAILY 3 Days #3 tablet 02/16/19 [Rx] Benzonatate 1 cap PO Q6H 12/23/19 [History] Clotrimazole/Betamethasone Dip [Lotrisone Cream] 1 applic TOP BID PRN 12/23/19 [ History] Diazepam [Valium] 5 mg PO Q6H PRN 12/23/19 [History] Menthol/Zinc Oxide [Calmoseptine] 1 applic TOP TID PRN 12/23/19 [History] Mirabegron [Myrbetriq] 50 mg PO DAILY 12/23/19 [History] Past Medical History HEENT History: Reports: Impaired Vision Cardiovascular History: Reports: High Cholesterol, Hypertension, [place] Other Cardiovascular History: Quarduple Bypass Respiratory History: Reports: COPD, Pneumonia, Recurrent, Pulmonary Fibrosis, SOB Gastrointestinal History: Reports: GERD, Other (See Below) Other Gastrointestinal History: Hernia Repair-unbilical Genitourinary History: Reports: Prostate Disorder, Retention, Urinary Musculoskeletal History: Reports: Other (See Below) Other Musculoskeletal History: rotator cuff tear-right Neurological History: Reports: Concussion, Migraines, Neuropathy, Peripheral Psychiatric History: Reports: Anxiety, PTSD Endocrine/Metabolic History: Reports: Diabetes, Type II - Infectious Disease History Infectious Disease History: Reports: Chicken Pox, Shingles - Past Surgical History HEENT Surgical History: Reports: Oral Surgery Other HEENT Surgeries/Procedures: upper and lower dentures Cardiovascular Surgical History: Reports: Coronary Artery Bypass GI Surgical History: Reports: Hernia, Abdominal Neurological Surgical History: Reports: Lumbar Spine Social & Family History - Family History Family Medical History: Noncontributory - Tobacco Use Smoking Status *Q: Current Every Day Smoker Years of Tobacco use: 40 Packs/Tins Daily: 1 Used Tobacco, but Quit: No - Caffeine Use Caffeine Use: Reports: Coffee - Recreational Drug Use Recreational Drug Use: No H&P Review of Systems - Review of Systems: Review Of Systems: See Below General: Reports: Weakness HEENT: Reports: No Symptoms Pulmonary: Reports: Shortness of Breath, Wheezing, Cough Cardiovascular: Reports: No Symptoms Gastrointestinal: Reports: No Symptoms Genitourinary: Reports: No Symptoms Musculoskeletal: Reports: No Symptoms Skin: Reports: No Symptoms Psychiatric: Reports: No Symptoms Neurological: Reports: No Symptoms Hematologic/Lymphatic: Reports: No Symptoms Immunologic: Reports: No Symptoms Exam - Exam Exam: See Below - Vital Signs Vital Signs: Last Vital Signs Temp 98.5 F 12/23/19 13:13 Pulse 98 12/23/19 13:13 Resp 18 12/23/19 13:13 BP 120/68 12/23/19 13:13 Pulse Ox 98 12/23/19 13:13 Weight: 132 lb 6.4 oz - Exam Quality Assessment: Supplemental Oxygen, DVT Prophylaxis General: Alert, Oriented, 4 HEENT: PERRLA, Hearing Intact, Mucosa Moist & [place], Nares Patent, Normal Nasal Septum, Posterior Pharynx Clear, Conjunctiva Clear, EOMI, EACs Clear, TMs Clear Neck: Supple, Trachea Midline, 2 Lungs: Clear to Auscultation, Normal Respiratory Effort Cardiovascular: Regular Rate, Regular Rhythm GI/Abdominal Exam: Normal Bowel Sounds, Soft, Non-Tender, No Organomegaly, No Distention, No Abnormal Bruit, No Mass, Pelvis Stable (Male) Exam: No Hernia, Normal Inspection, Normal Prostate, Circumcised Rectal (Males) Exam: Normal Exam, Normal Rectal Tone, Prostate Normal Back Exam: Normal Inspection, Full Range of Motion, NT Extremities: Normal Inspection, Normal Range of Motion, Non-Tender, No Pedal Edema, Normal Capillary Refill Skin: Warm, Dry, Intact Neurological: Cranial Nerves Intact, Reflexes Equal Bilateral Neuro Extensive - Mental Status: Alert, Oriented x3, Normal Mood/Affect, Normal Cognition Neuro Extensive - Motor, Sensory, Reflexes: CN II-XII Intact, Normal Gait, Normal Reflexes Psychiatric: Alert, Normal Affect, Normal Mood - Patient Data Lab Results Last 24 hrs: Laboratory Results - last 24 hr 12/23/19 12/23/19 12/23/19 Range/Units 11:37 11:37 11:37 WBC 16.6 H (5.0-10.0) 10^3/uL RBC 4.45 L (4.6-6.2) 10^6/uL Hgb 14.0 (14.0-18.0) g/dL Hct 42.8 (40.0-54.0) % MCV 96.2 D (80-100) fL MCH 31.5 (27.0-34.0) pg MCHC 32.7 L (33.0-35.0) g/dL Plt Count 174 D (150-450) 10^3/uL Neut % (Auto) 95.8 H (42.2-75.2) % Lymph % (Auto) 2.1 L (20.5-50.1) % [place] % (Auto) 1.7 L (2-8) % Eos % (Auto) 0.2 L (1.0-3.0) % Baso % (Auto) 0.2 (0.0-1.0) % Sodium 139 (136-145) mmol/L Potassium 4.4 (3.5-5.1) mmol/L Chloride 100 (98-107) mmol/L Carbon Dioxide 28 (21-32) mmol/L Anion Gap 15.4 H (7-13) mEq/L BUN 25 H (7-18) mg/dL Creatinine 1.11 (0.70-1.30) mg/dL Est Cr Clr Drug Dosing 51.85 mL/min Estimated GFR (MDRD) > 60 BUN/Creatinine Ratio 22.5 (No establ ref range) Glucose 125 H (74-99) mg/dL Lactic Acid 5.1 H* (0.4-2.0) mmol/L Calcium 8.8 (8.5-10.1) mg/dL Total Bilirubin 0.3 (0.2-1.0) mg/dL AST 14 L (15-37) U/L ALT 17 (16-63) U/L Alkaline Phosphatase 96 (46-116) U/L Troponin I < 0.017 (0.000-0.056) ng/mL Total Protein 6.4 (6.4-8.2) g/dL Albumin 3.5 (3.4-5.0) g/dL Globulin 2.9 Albumin/Globulin Ratio 1.2 Result Diagrams: 12/23/19 11:37 12/23/19 11:37 - Problem List (1) Sepsis SNOMED Code(s): 85409863 ICD Code: A41.9 - SEPSIS, UNSPECIFIED ORGANISM Status: Acute Current Visit: Yes (2) PNA (pneumonia) SNOMED Code(s): 556405952 ICD Code: J18.9 - PNEUMONIA, UNSPECIFIED ORGANISM Status: Acute Current Visit: Yes Problem List Initiated/Reviewed/Updated: Yes Orders Last 24hrs: Active Orders 24 hr Category Date Time Status Admission Diagnosis [ADT] Urgent ADT 12/23/19 13:00 Ordered Admission Status [Patient Status] [ADT] Routine ADT 12/23/19 13:00 Active Ambulate [RC] ASDIRECTED Care 12/23/19 14:28 Ordered Height and Weight [RC] DAILY Care 12/23/19 14:28 Ordered Intake and Output [RC] QSHIFT Care 12/23/19 14:30 Ordered Oxygen Therapy [RC] PRN Care 12/23/19 14:28 Ordered Pulse Oximetry [RC] PRN Care 12/23/19 14:30 Ordered RT Aerosol Therapy [RC] ASDIRECTED Care 12/23/19 14:32 Ordered VTE/DVT Education [RC] PER UNIT ROUTINE Care 12/23/19 14:28 Ordered Vital Signs [RC] Q4H Care 12/23/19 14:28 Ordered OT Evaluation and Treatment [CONS] Routine Cons 12/23/19 14:28 Ordered PT Evaluation and Treatment [CONS] Routine Cons 12/23/19 14:28 Ordered Respiratory Care Assess and Treatment [CONS] Routine Cons 12/23/19 14:28 Ordered Regular Diet [DIET] Diet 12/23/19 Dinner Ordered CBC W/O DIFF,HEMOGRAM [HEME] DAILY Lab 12/24/19 07:00 Ordered CBC W/O DIFF,HEMOGRAM [HEME] DAILY Lab 12/25/19 07:00 Ordered CBC W/O DIFF,HEMOGRAM [HEME] DAILY Lab 12/26/19 07:00 Ordered CBC W/O DIFF,HEMOGRAM [HEME] DAILY Lab 12/27/19 07:00 Ordered CBC W/O DIFF,HEMOGRAM [HEME] DAILY Lab 12/28/19 07:00 Ordered CBC W/O DIFF,HEMOGRAM [HEME] DAILY Lab 12/29/19 07:00 Ordered COMPREHENSIVE METABOLIC PN,CMP [CHEM] DAILY Lab 12/24/19 07:00 Ordered COMPREHENSIVE METABOLIC PN,CMP [CHEM] DAILY Lab 12/25/19 07:00 Ordered CULTURE BLOOD [BC] Stat Lab 12/23/19 11:35 Received CULTURE BLOOD [BC] Stat Lab 12/23/19 12:59 Received CULTURE SPUTUM + SMEAR [RM] Stat Lab 12/23/19 14:28 Ordered MAGNESIUM [CHEM] Routine Lab 12/23/19 14:28 Ordered PHOSPHORUS [CHEM] Routine Lab 12/23/19 14:28 Ordered Acetaminophen [Tylenol] Med 12/23/19 14:28 Ordered 650 mg PO Q4H PRN Albuterol/Ipratropium [DuoNeb 3.0-0.5 MG/3 ML] Med 12/23/19 14:30 Ordered 3 ml NEB Q4H Docusate Sodium [Colace] Med 12/23/19 14:28 Ordered 100 mg PO BID PRN Heparin Sodium Med 12/23/19 21:00 Ordered 5,000 units SUBCUT Q12HR Magnesium Hydroxide [Milk of Magnesia] Med 12/23/19 14:28 Ordered 30 ml PO Q12H PRN Ondansetron [Zofran] Med 12/23/19 14:28 Ordered 4 mg IVPUSH Q6H PRN Sodium Chloride 0.9% [Normal Saline] 1,000 ml Med 12/23/19 12:50 Active IV .BOLUS Resuscitation Status Routine Resus Stat 12/23/19 14:28 Ordered Medication Orders Acetaminophen (Tylenol) 650 mg PO Q4H PRN PRN Reason: Pain (Mild 1-3)/fever Albuterol/Ipratropium (Duoneb 3.0-0.5 Mg/3 Ml) 3 ml NEB Q4H ANKUR Docusate Sodium (Colace) 100 mg PO BID PRN PRN Reason: Constipation Heparin Sodium (Porcine) (Heparin Sodium) 5,000 units SUBCUT Q12HR ANKUR Sodium Chloride (Normal Saline) 1,000 mls @ 250 mls/hr IV .BOLUS ONE Stop: 12/23/19 16:49 Last Admin: 12/23/19 13:01 Dose: 250 mls/hr Magnesium Hydroxide (Milk Of Magnesia) 30 ml PO Q12H PRN PRN Reason: Constipation Ondansetron HCl (Zofran) 4 mg IVPUSH Q6H PRN PRN Reason: Nausea/Vomiting Assessment/Plan Comment:: #Acute on chronic respiratory failure with hypoxia due to COPD exacerbation versus pneumonia -Patient presented to the ED for evaluation of increasing shortness of breath -He has been using nerbs with no improvement -Admit to medical floor -Duonebs every 4 hourly -Solu-Medrol -Sputum for Gram stain and culture -Respiratory pathogen plan at this -Blood culture 2 -IV Zosyn -Continue supplemental oxygen and wean off as able #Probable Sepsis -Patient if the leukocytosis and elevated lactic and Tachypnea -Sepsis protocol -Serial lactate -IV fluids -Follow blood cultures -IV Zosyn as above #Lyphopenia -Follow up #Type 2 diabetes -On metformin. Hold for now -[facility] -Accu-Cheks -Hypoglycemic protocol #Chronic urinary retention due to BPH -Patient has chronic Raymundo in place -Continue home medication #Full code #Diabetic diet
[2019-12-23] MEDS ORDERED: MENTHOL TOP PRN (15:22)
[2019-12-23] MEDS ORDERED: Diazepam 5 MG Tab PO PRN (15:22)
[2019-12-23] MEDS ORDERED: ZINC OXIDE TOP PRN (15:22)
[2019-12-23] MEDS ORDERED: Albuterol 6.7 GM Inhaler INH PRN (15:22)
[2019-12-23] MEDS ORDERED: Nitroglycerin 0.4 MG Tab.SL SL PRN (15:22)
[2019-12-23] MEDS ORDERED: FLUVASTATIN 20 MG PO SCH (15:30)
[2019-12-23] MEDS: methylPREDNISolone Sodium Succinate 40 MG/1 ML SDV IVPUSH SCH ×2 (16:19→21:51)
[2019-12-23] MEDS: Albuterol/Ipratropium 3.0-0.5 MG/3 ML Neb Soln NEB SCH ×3 (16:19→22:49)
[2019-12-23] MEDS: Sodium Chloride 0.9% 1,000 ML IV SCH ×2 (16:24→20:49)
[2019-12-23] MEDS ORDERED: Sodium Chloride 0.9% 1,000 ML IV SCH ×2 (17:15→19:00)
[2019-12-23] MEDS: Benzonatate 100 MG Cap PO SCH (18:28)
[2019-12-23] MEDS: Piperacillin/Tazobactam 3.375 GM in Sodium Chloride 0.9% 100 ML IV SCH (18:28)
[2019-12-23] MEDS: FORMOTEROL INH SCH (21:19)
[2019-12-23] MEDS: BUDESONIDE INH SCH (21:19)
[2019-12-23] MEDS: Topiramate 100 MG Tab PO SCH (21:20)
[2019-12-23] MEDS: Aspirin 81 MG Tab.EC PO SCH (21:20)
[2019-12-23] MEDS: Mirtazapine 15 MG Tab PO SCH (21:20)
[2019-12-23] MEDS: Gabapentin 300 MG Cap PO SCH (21:22)
[2019-12-23] MEDS: LORazepam 0.5 MG Tab PO PRN (21:22)
[2019-12-23] MEDS: Insulin Lispro 100 Units/ML 3 ML Vial SUBCUT SCH (21:37)
[2019-12-23] MEDS: Heparin Sodium 5,000 Units/ML Vial SUBCUT SCH (21:46)
[2019-12-24] MEDS: Piperacillin/Tazobactam 3.375 GM in Sodium Chloride 0.9% 100 ML IV SCH ×4 (00:28→17:58)
[2019-12-24] MEDS: Benzonatate 100 MG Cap PO SCH ×5 (00:31→23:12)
[2019-12-24] MEDS: Albuterol/Ipratropium 3.0-0.5 MG/3 ML Neb Soln NEB SCH ×6 (03:09→23:12)
[2019-12-24] MEDS: Sodium Chloride 0.9% 1,000 ML IV SCH (05:57)
[2019-12-24] MEDS: methylPREDNISolone Sodium Succinate 40 MG/1 ML SDV IVPUSH SCH ×3 (06:02→21:34)
[2019-12-24 07:37] LABS: ANION GAP 12.8 mEq/L (7-13); CHLORIDE,CL 105 mmol/L (98-107); SODIUM,NA 142 mmol/L (136-145)
[2019-12-24] MEDS: Insulin Lispro 100 Units/ML 3 ML Vial SUBCUT SCH ×4 (08:17→22:20)
[2019-12-24] MEDS: Fluticasone Propionate Nasal Spray 16 GM Bottle NASBOTH SCH (08:56)
[2019-12-24] MEDS: Tiotropium Inhaler 18 MCG Inhalation Powder Cap Kit of 5 INH SCH (08:57)
[2019-12-24] MEDS: Finasteride 5 MG Tab PO SCH (08:58)
[2019-12-24] MEDS: Heparin Sodium 5,000 Units/ML Vial SUBCUT SCH ×2 (08:59→21:11)
[2019-12-24] MEDS: BUDESONIDE INH SCH ×2 (08:59→21:11)
[2019-12-24] MEDS: FORMOTEROL INH SCH ×2 (08:59→21:11)
[2019-12-24] MEDS ORDERED: Non-Formulary Medication 1 Each (Mirabegron [Myrbetriq] 50 MG) PO SCH (09:00)
--- NOTE | 2019-12-24 11:16 | PCM.PN ---
- General Info Date of Service: 12/24/19 Admission Dx/Problem (Free Text): Admission Diagnosis/Problem Admission Diagnosis/Problem Pneumonia Subjective Update: Patient is 69-year-old male with past medical history of COPD, continue tobacco abuse and BPH, chronic urinary retention managed with chronic Raymundo. He presented to the ED for evaluation of increasing shortness of breath for the past 2-4 weeks. He was admitted for acute on chronic respiratory failure due to COPD exacerbation and sepsis. Today patient was seen and examined. He is doing fairly okay. He reports significant improvement compared to yesterday. SOB has improved. He denies fever , chills. He denies abdominal pain, nausea, vomiting, diarrhea. Labs reviewed. Leukocytosis improved. . Functional Status: Reports: Pain Controlled - Review of Systems General: Reports: Weakness, Fatigue, Appetite (poor) HEENT: Reports: No Symptoms Pulmonary: Reports: Cough, Wheezing Cardiovascular: Reports: No Symptoms Gastrointestinal: Reports: No Symptoms Genitourinary: Reports: No Symptoms Musculoskeletal: Reports: No Symptoms Skin: Reports: No Symptoms Neurological: Reports: No Symptoms Psychiatric: Reports: No Symptoms - Patient Data Vitals - Most Recent: Last Vital Signs Temp 98 F 12/24/19 07:46 Pulse 71 12/24/19 07:46 Resp 20 12/24/19 07:46 BP 130/74 12/24/19 07:46 Pulse Ox 100 12/24/19 07:46 Weight - Most Recent: 130 lb I&O - Last 24 Hours: Intake & Output 12/23/19 12/24/19 12/24/19 22:59 06:59 14:59 Intake Total 3718 2100 480 Output Total 850 3350 Balance 2868 -1250 480 Lab Results Last 24 Hours: Laboratory Results - last 24 hr 12/23/19 12/23/19 12/23/19 Range/Units 11:37 11:37 11:37 WBC 16.6 H (5.0-10.0) 10^3/uL RBC 4.45 L (4.6-6.2) 10^6/uL Hgb 14.0 (14.0-18.0) g/dL Hct 42.8 (40.0-54.0) % MCV 96.2 D (80-100) fL MCH 31.5 (27.0-34.0) pg MCHC 32.7 L (33.0-35.0) g/dL Plt Count 174 D (150-450) 10^3/uL Neut % (Auto) 95.8 H (42.2-75.2) % Lymph % (Auto) 2.1 L (20.5-50.1) % Foard % (Auto) 1.7 L (2-8) % Eos % (Auto) 0.2 L (1.0-3.0) % Baso % (Auto) 0.2 (0.0-1.0) % Sodium 139 (136-145) mmol/L Potassium 4.4 (3.5-5.1) mmol/L Chloride 100 (98-107) mmol/L Carbon Dioxide 28 (21-32) mmol/L Anion Gap 15.4 H (7-13) mEq/L BUN 25 H (7-18) mg/dL Creatinine 1.11 (0.70-1.30) mg/dL Est Cr Clr Drug Dosing 51.85 mL/min Estimated GFR (MDRD) > 60 BUN/Creatinine Ratio 22.5 (No establ ref range) Glucose 125 H (74-99) mg/dL POC Glucose (83-110) mg/dl Lactic Acid 5.1 H* (0.4-2.0) mmol/L Calcium 8.8 (8.5-10.1) mg/dL Phosphorus (2.6-4.7) mg/dL Magnesium (1.8-2.4) mg/dL Total Bilirubin 0.3 (0.2-1.0) mg/dL AST 14 L (15-37) U/L ALT 17 (16-63) U/L Alkaline Phosphatase 96 (46-116) U/L Troponin I < 0.017 (0.000-0.056) ng/mL B-Natriuretic Peptide (0-100) pg/ml Total Protein 6.4 (6.4-8.2) g/dL Albumin 3.5 (3.4-5.0) g/dL Globulin 2.9 Albumin/Globulin Ratio 1.2 12/23/19 12/23/19 12/23/19 Range/Units 11:37 11:37 16:00 WBC (5.0-10.0) 10^3/uL RBC (4.6-6.2) 10^6/uL Hgb (14.0-18.0) g/dL Hct (40.0-54.0) % MCV (80-100) fL MCH (27.0-34.0) pg MCHC (33.0-35.0) g/dL Plt Count (150-450) 10^3/uL Neut % (Auto) (42.2-75.2) % Lymph % (Auto) (20.5-50.1) % Foard % (Auto) (2-8) % Eos % (Auto) (1.0-3.0) % Baso % (Auto) (0.0-1.0) % Sodium (136-145) mmol/L Potassium (3.5-5.1) mmol/L Chloride (98-107) mmol/L Carbon Dioxide (21-32) mmol/L Anion Gap (7-13) mEq/L BUN (7-18) mg/dL Creatinine (0.70-1.30) mg/dL Est Cr Clr Drug Dosing mL/min Estimated GFR (MDRD) BUN/Creatinine Ratio (No establ ref range) Glucose (74-99) mg/dL POC Glucose (83-110) mg/dl Lactic Acid 6.1 H* (0.4-2.0) mmol/L Calcium (8.5-10.1) mg/dL Phosphorus 2.9 (2.6-4.7) mg/dL Magnesium 1.5 L (1.8-2.4) mg/dL Total Bilirubin (0.2-1.0) mg/dL AST (15-37) U/L ALT (16-63) U/L Alkaline Phosphatase (46-116) U/L Troponin I (0.000-0.056) ng/mL B-Natriuretic Peptide 85 (0-100) pg/ml Total Protein (6.4-8.2) g/dL Albumin (3.4-5.0) g/dL Globulin Albumin/Globulin Ratio 12/23/19 12/23/19 12/23/19 Range/Units 18:00 20:49 22:13 WBC (5.0-10.0) 10^3/uL RBC (4.6-6.2) 10^6/uL Hgb (14.0-18.0) g/dL Hct (40.0-54.0) % MCV (80-100) fL MCH (27.0-34.0) pg MCHC (33.0-35.0) g/dL Plt Count (150-450) 10^3/uL Neut % (Auto) (42.2-75.2) % Lymph % (Auto) (20.5-50.1) % Foard % (Auto) (2-8) % Eos % (Auto) (1.0-3.0) % Baso % (Auto) (0.0-1.0) % Sodium (136-145) mmol/L Potassium (3.5-5.1) mmol/L Chloride (98-107) mmol/L Carbon Dioxide (21-32) mmol/L Anion Gap (7-13) mEq/L BUN (7-18) mg/dL Creatinine (0.70-1.30) mg/dL Est Cr Clr Drug Dosing mL/min Estimated GFR (MDRD) BUN/Creatinine Ratio (No establ ref range) Glucose (74-99) mg/dL POC Glucose 265 H (83-110) mg/dl Lactic Acid 4.5 H* 5.0 H* (0.4-2.0) mmol/L Calcium (8.5-10.1) mg/dL Phosphorus (2.6-4.7) mg/dL Magnesium (1.8-2.4) mg/dL Total Bilirubin (0.2-1.0) mg/dL AST (15-37) U/L ALT (16-63) U/L Alkaline Phosphatase (46-116) U/L Troponin I (0.000-0.056) ng/mL B-Natriuretic Peptide (0-100) pg/ml Total Protein (6.4-8.2) g/dL Albumin (3.4-5.0) g/dL Globulin Albumin/Globulin Ratio 12/24/19 12/24/19 12/24/19 Range/Units 02:06 06:10 06:10 WBC 9.0 (5.0-10.0) 10^3/uL RBC 4.01 L (4.6-6.2) 10^6/uL Hgb 12.5 L D (14.0-18.0) g/dL Hct 38.3 L (40.0-54.0) % MCV 95.5 (80-100) fL MCH 31.2 (27.0-34.0) pg MCHC 32.6 L (33.0-35.0) g/dL Plt Count 232 (150-450) 10^3/uL Neut % (Auto) (42.2-75.2) % Lymph % (Auto) (20.5-50.1) % Foard % (Auto) (2-8) % Eos % (Auto) (1.0-3.0) % Baso % (Auto) (0.0-1.0) % Sodium 142 (136-145) mmol/L Potassium 3.8 (3.5-5.1) mmol/L Chloride 105 (98-107) mmol/L Carbon Dioxide 28 (21-32) mmol/L Anion Gap 12.8 (7-13) mEq/L BUN 21 H (7-18) mg/dL Creatinine 0.86 (0.70-1.30) mg/dL Est Cr Clr Drug Dosing 65.71 mL/min Estimated GFR (MDRD) > 60 BUN/Creatinine Ratio 24.4 (No establ ref range) Glucose 142 H (74-99) mg/dL POC Glucose (83-110) mg/dl Lactic Acid 1.6 (0.4-2.0) mmol/L Calcium 8.2 L (8.5-10.1) mg/dL Phosphorus (2.6-4.7) mg/dL Magnesium (1.8-2.4) mg/dL Total Bilirubin 0.3 (0.2-1.0) mg/dL AST 9 L (15-37) U/L ALT 15 L (16-63) U/L Alkaline Phosphatase 78 (46-116) U/L Troponin I (0.000-0.056) ng/mL B-Natriuretic Peptide (0-100) pg/ml Total Protein 5.3 L (6.4-8.2) g/dL Albumin 2.8 L (3.4-5.0) g/dL Globulin 2.5 Albumin/Globulin Ratio 1.12 03/26/20 Range/Units 07:45 WBC (5.0-10.0) 10^3/uL RBC (4.6-6.2) 10^6/uL Hgb (14.0-18.0) g/dL Hct (40.0-54.0) % MCV (80-100) fL MCH (27.0-34.0) pg MCHC (33.0-35.0) g/dL Plt Count (150-450) 10^3/uL Neut % (Auto) (42.2-75.2) % Lymph % (Auto) (20.5-50.1) % Foard % (Auto) (2-8) % Eos % (Auto) (1.0-3.0) % Baso % (Auto) (0.0-1.0) % Sodium (136-145) mmol/L Potassium (3.5-5.1) mmol/L Chloride (98-107) mmol/L Carbon Dioxide (21-32) mmol/L Anion Gap (7-13) mEq/L BUN (7-18) mg/dL Creatinine (0.70-1.30) mg/dL Est Cr Clr Drug Dosing mL/min Estimated GFR (MDRD) BUN/Creatinine Ratio (No establ ref range) Glucose (74-99) mg/dL POC Glucose 132 H (83-110) mg/dl Lactic Acid (0.4-2.0) mmol/L Calcium (8.5-10.1) mg/dL Phosphorus (2.6-4.7) mg/dL Magnesium (1.8-2.4) mg/dL Total Bilirubin (0.2-1.0) mg/dL AST (15-37) U/L ALT (16-63) U/L Alkaline Phosphatase (46-116) U/L Troponin I (0.000-0.056) ng/mL B-Natriuretic Peptide (0-100) pg/ml Total Protein (6.4-8.2) g/dL Albumin (3.4-5.0) g/dL Globulin Albumin/Globulin Ratio Med Orders - Current: Current Medications Acetaminophen (Tylenol) 650 mg PO Q4H PRN PRN Reason: Pain (Mild 1-3)/fever Albuterol (Proventil Hfa) 0 gm INH QID PRN PRN Reason: Dyspnea Albuterol/Ipratropium (Duoneb 3.0-0.5 Mg/3 Ml) 3 ml NEB Q4HRRT [facility] Last Admin: 12/24/19 07:31 Dose: 3 ml Aspirin (Halfprin) 81 mg PO BEDTIME [facility] Last Admin: 12/23/19 21:20 Dose: 81 mg Benzonatate (Tessalon Perles) 100 mg PO Q6HR [facility] Last Admin: 12/24/19 06:02 Dose: 100 mg Diazepam (Valium.) 5 mg PO Q6H PRN PRN Reason: PRIOR TO PROCEDURES ONLY Docusate Sodium (Colace) 100 mg PO BID PRN PRN Reason: Constipation Last Admin: 12/24/19 08:58 Dose: 100 mg Finasteride (Proscar) 5 mg PO DAILY [facility] Last Admin: 12/24/19 08:58 Dose: 5 mg Fluticasone Propionate (Flonase) 0 gm NASBOTH DAILY [facility] Last Admin: 12/24/19 08:56 Dose: 1 spray Gabapentin (Neurontin) 300 mg PO BEDTIME [facility] Last Admin: 12/23/19 21:22 Dose: 300 mg Heparin Sodium (Porcine) (Heparin Sodium) 5,000 units SUBCUT Q12HR [facility] Last Admin: 12/24/19 08:59 Dose: 5,000 units Piperacillin Sod/Tazobactam (Sod 3.375 gm/ Sodium Chloride) 100 mls @ 200 mls/ hr IV Q6HR [facility] Insulin Human Lispro (Humalog) 0 unit SUBCUT WITHMEALSANDBED [facility]; Protocol Last Admin: 12/24/19 08:17 Dose: Not Given Lorazepam (Ativan) 0.25 mg PO BEDTIME PRN PRN Reason: Anxiety Last Admin: 12/23/19 21:22 Dose: 0.25 mg Magnesium Hydroxide (Milk Of Magnesia) 30 ml PO Q12H PRN PRN Reason: Constipation Methylprednisolone Sodium Succinate (Solu-Medrol) 40 mg IVPUSH Q8HR [facility] Last Admin: 12/24/19 06:02 Dose: 40 mg Mirtazapine (Remeron) 7.5 mg PO BEDTIME [facility] Last Admin: 12/23/19 21:20 Dose: 7.5 mg Montelukast Sodium (Singulair) 10 mg PO BEDTIME [facility] Nitroglycerin (Nitrostat) 0.4 mg SL ASDIRECTED PRN PRN Reason: Chest Pain Budesonide/Formoterol 160-4. 5mcg Inhaler * Patients Own* 2 puff INH BID [facility] Last Admin: 12/24/19 08:59 Dose: 2 puff Non-Formulary Medication (Fluvastatin [Lescol]) 20 mg PO .MON,WED,FRI [facility] Menthol/Zinc Oxide [ Calmoseptine] # Patient's Own# 0 applic TOP TID PRN PRN Reason: Itching Non-Formulary Medication (Mirabegron [Myrbetriq]) 50 mg PO DAILY [facility] Ondansetron HCl (Zofran) 4 mg IVPUSH Q6H PRN PRN Reason: Nausea/Vomiting Tiotropium [place] (Spiriva Handihaler) 18 mcg INH DAILY [facility] Last Admin: 12/24/19 08:57 Dose: 18 mcg Topiramate (Topamax) 100 mg PO BEDTIME [facility] Last Admin: 12/23/19 21:20 Dose: 100 mg Discontinued Medications Piperacillin Sod/Tazobactam (Sod 3.375 gm/ Sodium Chloride) 100 mls @ 200 mls/ hr IV ONETIME ONE Stop: 12/23/19 13:19 Last Admin: 12/23/19 13:02 Dose: 200 mls/hr Sodium Chloride (Normal Saline) 1,000 mls @ 250 mls/hr IV .BOLUS ONE Stop: 12/23/19 16:49 Last Admin: 12/23/19 13:01 Dose: 250 mls/hr Piperacillin Sod/Tazobactam (Sod 3.375 gm/ Sodium Chloride) 100 mls @ 200 mls/ hr IV Q6H [facility] Last Infusion: 12/24/19 06:40 Dose: Infused Sodium Chloride (Normal Saline) 1,000 mls @ 125 mls/hr IV ASDIRECTED [facility] Last Infusion: 12/24/19 10:13 Dose: Infused Sodium Chloride (Normal Saline) 1,000 mls @ 999 mls/hr IV ASDIRECTED ONE Stop: 12/23/19 18:00 Last Admin: 12/23/19 17:11 Dose: 700 mls/hr Sodium Chloride (Normal Saline) 1,000 mls @ 999 mls/hr IV ASDIRECTED [facility] Sodium Chloride (Normal Saline) 1,000 mls @ 999 mls/hr IV ASDIRECTED [facility] Last Admin: 12/23/19 20:22 Dose: 999 mls/hr - Exam Quality Assessment: Supplemental Oxygen, DVT Prophylaxis General: Alert, Oriented HEENT: Pupils Equal, Pupils Reactive, EOMI, Mucous Membr. Moist/[place] Neck: Supple Lungs: Clear to Auscultation, Normal Respiratory Effort, Wheezing (mild and scarterred posteriorly) Cardiovascular: Regular Rate, Regular Rhythm GI/Abdominal Exam: Normal Bowel Sounds, Soft, Non-Tender, No Organomegaly, No Distention, No Abnormal Bruit, No Mass, Pelvis Stable (Male) Exam: No Hernia, Normal Inspection, Normal Prostate, Circumcised Back Exam: Normal Inspection, Full Range of Motion Extremities: Normal Inspection, Normal Range of Motion, Non-Tender, No Pedal Edema, Normal Capillary Refill Skin: Warm, Dry, Intact Wound/Incisions: Healing Well Neurological: No New Focal Deficit Psy/Mental Status: Alert, Normal Affect, Normal Mood Sepsis Event Note - Evaluation Sepsis Screening Result: No Definite Risk - Focused Exam Vital Signs: Vital Signs Temp Pulse Resp BP BP Pulse Ox Pulse Ox 12/24/19 07:46 98 F 71 20 130/74 100 12/24/19 07:31 66 97 12/24/19 03:09 77 93 L 12/24/19 00:16 98 F 83 20 113/70 93 L Date Exam was Performed: 12/24/19 Time Exam was Performed: 11:17 - Problem List & Annotations (1) Sepsis SNOMED Code(s): 65066006 Code(s): A41.9 - SEPSIS, UNSPECIFIED ORGANISM Status: Acute Current Visit : Yes (2) PNA (pneumonia) SNOMED Code(s): 595416614 Code(s): J18.9 - PNEUMONIA, UNSPECIFIED ORGANISM Status: Acute Current Visit: Yes - Problem List Review Problem List Initiated/Reviewed/Updated: Yes - My Orders Last 24 Hours: My Active Orders 12/23/19 14:28 Ambulate [RC] ASDIRECTED Height and Weight [RC] 06 VTE/DVT Education [RC] PER UNIT ROUTINE Vital Signs [RC] 00,04,08,12,16,20 OT Evaluation and Treatment [CONS] Routine PT Evaluation and Treatment [CONS] Routine Respiratory Care Assess and Treatment [CONS] Routine CULTURE SPUTUM + SMEAR [RM] Stat Acetaminophen [Tylenol] 650 mg PO Q4H PRN Docusate Sodium [Colace] 100 mg PO BID PRN Magnesium Hydroxide [Milk of Magnesia] 30 ml PO Q12H PRN Ondansetron [Zofran] 4 mg IVPUSH Q6H PRN Resuscitation Status Routine 12/23/19 14:30 Intake and Output [RC] QSHIFT Pulse Oximetry [RC] PRN 12/23/19 14:32 RT Aerosol Therapy [RC] ASDIRECTED 12/23/19 15:00 Albuterol/Ipratropium [DuoNeb 3.0-0.5 MG/3 ML] 3 ml NEB Q4HRRT 12/23/19 15:22 Albuterol [Proventil HFA] 0 gm INH QID PRN LORazepam [Ativan] 0.25 mg PO BEDTIME PRN Menthol/Zinc Oxide [Calmoseptine] 0 applic TOP TID PRN Nitroglycerin [Nitrostat] 0.4 mg SL ASDIRECTED PRN diazePAM [Valium] 5 mg PO Q6H PRN 12/23/19 15:30 Fluvastatin [Lescol] 20 mg PO .MON,WED,FRI methylPREDNISolone Sod Succ [Solu-MEDROL] 40 mg IVPUSH Q8HR 12/23/19 18:00 Benzonatate [Tessalon Perles] 100 mg PO Q6HR 12/23/19 18:54 Blood Glucose Check, Bedside [RC] QIDACANDBED Dietary Supplements [RC] BIDMEALS 12/23/19 21:00 Aspirin [Halfprin] 81 mg PO BEDTIME Budesonide/Formoterol 2 puff INH BID Gabapentin [Neurontin] 300 mg PO BEDTIME Heparin Sodium 5,000 units SUBCUT Q12HR Insulin Lispro [HumaLOG] See Protocol SUBCUT WITHMEALSANDBED Mirtazapine [Remeron] 7.5 mg PO BEDTIME Topiramate [Topamax] 100 mg PO BEDTIME 12/23/19 Dinner Consistent Carbohydrate Diet [DIET] 12/24/19 09:00 Finasteride [Proscar] 5 mg PO DAILY Fluticasone Propionate [Flonase] 0 gm NASBOTH DAILY Mirabegron [Myrbetriq] 50 mg PO DAILY Tiotropium [Spiriva HandiHaler] 18 mcg INH DAILY 12/24/19 12:00 Piperacillin/Tazobactam [Zosyn] 3.375 gm Sodium Chloride 0.9% [Normal Saline] 100 ml IV Q6HR 12/24/19 21:00 Montelukast [Singulair] 10 mg PO BEDTIME 12/24/19 Breakfast Regular Diet [DIET] 12/25/19 07:00 CBC W/O DIFF,HEMOGRAM [HEME] DAILY COMPREHENSIVE METABOLIC PN,CMP [CHEM] DAILY 12/26/19 07:00 CBC W/O DIFF,HEMOGRAM [HEME] DAILY 12/27/19 07:00 CBC W/O DIFF,HEMOGRAM [HEME] DAILY 12/28/19 07:00 CBC W/O DIFF,HEMOGRAM [HEME] DAILY 12/29/19 07:00 CBC W/O DIFF,HEMOGRAM [HEME] DAILY - Plan Plan:: #Acute on chronic respiratory failure with hypoxia due to COPD exacerbation versus pneumonia -Improving -Duonebs every 4 hourly -Solu-Medrol -Follow up on Sputum for Gram stain and culture -Follow up on Blood culture 2 -Continue IV Zosyn -Continue supplemental oxygen and wean off as able #Probable Sepsis -Resolving -d/c IV fluids -Follow blood cultures -Continue IV Zosyn as above #Lyphopenia -improved #Type 2 diabetes -On metformin. On hold for now -SSI -Accu-Cheks -Hypoglycemic protocol #Chronic urinary retention due to BPH -Patient has chronic Raymundo in place -Continue home medication #Full code #Diabetic diet
[2019-12-24] MEDS ORDERED: Famotidine 20 MG Tab PO PRN (12:16)
[2019-12-24] MEDS ORDERED: Cyclobenzaprine 10 MG Tab PO PRN (12:16)
[2019-12-24] MEDS ORDERED: Betamethasone Dipropionate/Clotrimazole 0.05-1% Crm 15 GM Tube TOP PRN (12:16)
[2019-12-24] MEDS: Omeprazole 20 MG Cap.CR PO SCH (16:43)
[2019-12-24] MEDS ORDERED: Montelukast 10 MG Tab PO SCH (21:00)
[2019-12-24] MEDS: Topiramate 100 MG Tab PO SCH (21:10)
[2019-12-24] MEDS: Aspirin 81 MG Tab.EC PO SCH (21:10)
[2019-12-24] MEDS: Gabapentin 300 MG Cap PO SCH (21:10)
[2019-12-24] MEDS: Mirtazapine 15 MG Tab PO SCH (21:11)
[2019-12-24] MEDS: LORazepam 0.5 MG Tab PO PRN (21:23)
[2019-12-24] MEDS ORDERED: Sodium Chloride 0.9% 10 ML Syringe FLUSH PRN (21:33)
[2019-12-24] MEDS ORDERED: Levofloxacin 500 MG Tab PO SCH ×2 (22:15→23:00)
[2019-12-25] MEDS: Albuterol/Ipratropium 3.0-0.5 MG/3 ML Neb Soln NEB SCH ×3 (03:20→12:16)
[2019-12-25] MEDS: Omeprazole 20 MG Cap.CR PO SCH (05:48)
[2019-12-25] MEDS: Benzonatate 100 MG Cap PO SCH (05:48)
[2019-12-25 07:13] LABS: ANION GAP 13.9 mEq/L (7-13); CHLORIDE,CL 103 mmol/L (98-107); SODIUM,NA 140 mmol/L (136-145)
[2019-12-25 07:20] VITALS: PULSE 64
[2019-12-25 07:45] VITALS: BP 133/77
[2019-12-25] MEDS ORDERED: predniSONE 20 MG Tab PO SCH (08:00)
[2019-12-25] MEDS: Heparin Sodium 5,000 Units/ML Vial SUBCUT SCH (08:17)
[2019-12-25] MEDS: Fluticasone Propionate Nasal Spray 16 GM Bottle NASBOTH SCH (08:17)
[2019-12-25] MEDS: Finasteride 5 MG Tab PO SCH (08:18)
[2019-12-25] MEDS: Tiotropium Inhaler 18 MCG Inhalation Powder Cap Kit of 5 INH SCH (08:20)
[2019-12-25] MEDS: Insulin Lispro 100 Units/ML 3 ML Vial SUBCUT SCH ×2 (08:22→12:16)
[2019-12-25] MEDS ORDERED: Oxybutynin 5 MG Tab.ER PO SCH (09:00)
[2019-12-25] MEDS ORDERED: Rosuvastatin 10 MG Tab PO SCH (09:00)
[2019-12-25] MEDS ORDERED: Cholecalciferol (Vitamin D3) 25 MCG Tab PO SCH (09:00)
[2019-12-25] MEDS ORDERED: Levofloxacin 500 MG Tab PO SCH (09:00)
[2019-12-25] MEDS: BUDESONIDE INH SCH (10:24)
[2019-12-25] MEDS: FORMOTEROL INH SCH (10:24)
--- NOTE | 2019-12-25 10:51 | PCM.DCSUM1 ---
Discharge Summary - Hospital Course Free Text/Narrative:: Patient is 69-year-old male with past medical history of COPD, continue tobacco abuse and BPH, chronic urinary retention managed with chronic Raymundo. He presented to the ED for evaluation of increasing shortness of breath for the past 2-4 weeks. He was admitted for acute on chronic respiratory failure due to COPD exacerbation and sepsis likely due to PNA. Chest x-ray showed no acute changes. He was started on IV Zosyn. He responded to treatment. His overall symptoms improved significantly. Leukocytosis resolved. Patient was discharged in a stable condition with plan to follow-up with PCP. Diagnosis: Stroke: No - Discharge Data Discharge Date: 12/25/19 Discharge Disposition: Home, Self-Care 01 Condition: Good - Referral to Home Health Primary Care Physician: PCP Unobtainable - Discharge Diagnosis/Problem(s) (1) Sepsis SNOMED Code(s): 78971254 ICD Code: A41.9 - SEPSIS, UNSPECIFIED ORGANISM Status: Acute Current Visit: Yes (2) PNA (pneumonia) SNOMED Code(s): 597876104 ICD Code: J18.9 - PNEUMONIA, UNSPECIFIED ORGANISM Status: Acute Current Visit: Yes Qualifiers: Pneumonia type: due to unspecified organism Lung location: unspecified part of lung - Patient Summary/Data Consults: Consultations 12/23/19 14:28 OT Evaluation and Treatment [CONS] Routine PT Evaluation and Treatment [CONS] Routine Respiratory Care Assess and Treatment [CONS] Routine - Patient Instructions Diet: Heart Healthy Diet Activity: As Tolerated Driving: May Drive Today Showering/Bathing: May Shower Notify Provider of: Fever, Swelling and Redness, Nausea and/or Vomiting - Discharge Plan *PRESCRIPTION DRUG MONITORING PROGRAM REVIEWED*: Not Applicable *COPY OF PRESCRIPTION DRUG MONITORING REPORT IN PATIENT ERNESTINA: Not Applicable Prescriptions/Med Rec: levoFLOXacin [Levaquin] 500 mg PO DAILY #7 tablet Home Medications: Home Meds Albuterol [Proventil HFA] 2 puff INH QID PRN 01/31/14 [History] Aspirin [Ecotrin EC] 81 mg PO BEDTIME 01/31/14 [History] Gabapentin [Neurontin] 300 mg PO BEDTIME 01/31/14 [History] Tiotropium [Spiriva HandiHaler] 18 mcg INH DAILY 02/13/15 [History] Ibuprofen 200 mg PO BID PRN 07/17/18 [History] LORazepam 0.25 mg PO BEDTIME PRN 07/17/18 [History] Mirtazapine 7.5 mg PO BEDTIME 07/17/18 [History] Topiramate 100 mg PO BEDTIME 07/17/18 [History] metFORMIN HCl [Metformin HCl] 1,000 mg PO BID 07/18/18 [History] Budesonide/Formoterol [Symbicort 160-4.5 MCG] 2 puff INH BID 09/25/18 [History] Cyclobenzaprine [Flexeril] 5 mg PO Q8H PRN 09/25/18 [History] Fluticasone Propionate [Flonase] 1 spray NASBOTH DAILY 09/25/18 [History] Cholecalciferol (Vitamin D3) [Vitamin D3] 2,000 units PO DAILY 10/01/18 [History ] Finasteride [Proscar] 5 mg PO DAILY 10/01/18 [History] Nitroglycerin 0.4 mg SL ASDIRECTED PRN 10/01/18 [History] Albuterol [Proventil Neb Soln] 3 ml INH Q4HR PRN 02/13/19 [History] Fluvastatin [Lescol] 20 mg PO .MON,WED,FRI 02/13/19 [History] Montelukast Sodium [Singulair] 10 mg PO DAILY 02/13/19 [History] Sennosides/Docusate Sodium [Senna-S] 2 tab PO BID 02/13/19 [History] polyethylene glycoL 3350 [MiraLAX] 17 gm PO DAILY PRN 02/13/19 [History] predniSONE [Prednisone] 20 mg PO DAILY 3 Days #3 tablet 02/16/19 [Rx] Benzonatate 1 cap PO Q6H 12/23/19 [History] Clotrimazole/Betamethasone Dip [Lotrisone Cream] 1 applic TOP BID PRN 12/23/19 [ History] Diazepam [Valium] 5 mg PO Q6H PRN 12/23/19 [History] Menthol/Zinc Oxide [Calmoseptine] 1 applic TOP TID PRN 12/23/19 [History] Omeprazole 20 mg PO BID 12/23/19 [History] Oxybutynin [Oxybutynin ER] 5 mg PO DAILY 12/23/19 [History] Rosuvastatin [Crestor] 5 mg PO DAILY 12/23/19 [History] levoFLOXacin [Levaquin] 500 mg PO DAILY #7 tablet 12/25/19 [Rx] Oxygen Therapy Mode: Room Air Patient Handouts: Community-Acquired Pneumonia, Adult, [id number] Referrals: PCP,Unobtain [Primary Care Provider] - Evon Matt NP [Ordering Only Provider] - - Discharge Summary/Plan Comment DC Time >30 min.: Yes - General Info Date of Service: 12/25/19 Admission Dx/Problem (Free Text: Admission Diagnosis/Problem Admission Diagnosis/Problem Pneumonia Subjective Update: . Functional Status: Reports: Pain Controlled - Review of Systems General: Reports: No Symptoms HEENT: Reports: No Symptoms Pulmonary: Reports: No Symptoms Cardiovascular: Reports: No Symptoms Gastrointestinal: Reports: No Symptoms Genitourinary: Reports: No Symptoms Musculoskeletal: Reports: No Symptoms Skin: Reports: No Symptoms Neurological: Reports: No Symptoms Psychiatric: Reports: No Symptoms - Patient Data Vitals - Most Recent: Last Vital Signs Temp 98 F 12/25/19 07:43 Pulse 64 12/25/19 07:43 Resp 18 12/25/19 07:43 BP 133/77 12/25/19 07:43 Pulse Ox 97 12/25/19 07:43 Weight - Most Recent: 128 lb I&O - Last 24 hours: Intake & Output 12/24/19 12/25/19 12/25/19 22:59 06:59 14:59 Intake Total 760 800 480 Output Total 150 3125 Balance 610 -8926 480 Lab Results - Last 24 hrs: Laboratory Results - last 24 hr 12/24/19 12/24/19 12/24/19 Range/Units 11:43 16:55 20:58 WBC (5.0-10.0) 10^3/uL RBC (4.6-6.2) 10^6/uL Hgb (14.0-18.0) g/dL Hct (40.0-54.0) % MCV (80-100) fL MCH (27.0-34.0) pg MCHC (33.0-35.0) g/dL Plt Count (150-450) 10^3/uL Sodium (136-145) mmol/L Potassium (3.5-5.1) mmol/L Chloride (98-107) mmol/L Carbon Dioxide (21-32) mmol/L Anion Gap (7-13) mEq/L BUN (7-18) mg/dL Creatinine (0.70-1.30) mg/dL Est Cr Clr Drug Dosing mL/min Estimated GFR (MDRD) BUN/Creatinine Ratio (No establ ref range) Glucose (74-99) mg/dL POC Glucose 189 H 211 H 98 (83-110) mg/dl Calcium (8.5-10.1) mg/dL Total Bilirubin (0.2-1.0) mg/dL AST (15-37) U/L ALT (16-63) U/L Alkaline Phosphatase (46-116) U/L Total Protein (6.4-8.2) g/dL Albumin (3.4-5.0) g/dL Globulin Albumin/Globulin Ratio 12/25/19 12/25/19 12/25/19 Range/Units 06:05 06:05 07:51 WBC 11.2 H (5.0-10.0) 10^3/uL RBC 4.26 L (4.6-6.2) 10^6/uL Hgb 13.3 L (14.0-18.0) g/dL Hct 40.1 (40.0-54.0) % MCV 94.1 (80-100) fL MCH 31.2 (27.0-34.0) pg MCHC 33.2 (33.0-35.0) g/dL Plt Count 231 (150-450) 10^3/uL Sodium 140 (136-145) mmol/L Potassium 3.9 (3.5-5.1) mmol/L Chloride 103 (98-107) mmol/L Carbon Dioxide 27 (21-32) mmol/L Anion Gap 13.9 H (7-13) mEq/L BUN 22 H (7-18) mg/dL Creatinine 1.03 (0.70-1.30) mg/dL Est Cr Clr Drug Dosing 54.02 mL/min Estimated GFR (MDRD) > 60 BUN/Creatinine Ratio 21.4 (No establ ref range) Glucose 130 H (74-99) mg/dL POC Glucose 116 H (83-110) mg/dl Calcium 8.6 (8.5-10.1) mg/dL Total Bilirubin 0.3 (0.2-1.0) mg/dL AST 10 L (15-37) U/L ALT 16 (16-63) U/L Alkaline Phosphatase 77 (46-116) U/L Total Protein 5.7 L (6.4-8.2) g/dL Albumin 3.1 L (3.4-5.0) g/dL Globulin 2.6 Albumin/Globulin Ratio 1.19 DANAY Results - Last 24 hrs: Microbiology 12/23/19 12:59 Aerobic Blood Culture - Preliminary Blood NO GROWTH AFTER 1 DAY Anaerobic Blood Culture - Preliminary NO GROWTH AFTER 1 DAY 12/23/19 11:35 Aerobic Blood Culture - Preliminary Blood NO GROWTH AFTER 1 DAY Anaerobic Blood Culture - Preliminary NO GROWTH AFTER 1 DAY Med Orders - Current: Current Medications Acetaminophen (Tylenol) 650 mg PO Q4H PRN PRN Reason: Pain (Mild 1-3)/fever Albuterol (Proventil Hfa) 0 gm INH QID PRN PRN Reason: Dyspnea Albuterol/Ipratropium (Duoneb 3.0-0.5 Mg/3 Ml) 3 ml NEB Q4HRRT [facility] Last Admin: 12/25/19 07:18 Dose: 3 ml Aspirin (Halfprin) 81 mg PO BEDTIME [facility] Last Admin: 12/24/19 21:10 Dose: 81 mg Benzonatate (Tessalon Perles) 100 mg PO Q6HR [facility] Last Admin: 12/25/19 05:48 Dose: 100 mg Cholecalciferol (Vitamin D3) 25 mcg PO DAILY [facility] Last Admin: 12/25/19 08:21 Dose: 25 mcg Cyclobenzaprine HCl (Flexeril) 5 mg PO Q8H PRN PRN Reason: muscle relaxant Diazepam (Valium.) 5 mg PO Q6H PRN PRN Reason: PRIOR TO PROCEDURES ONLY Docusate Sodium (Colace) 100 mg PO BID PRN PRN Reason: Constipation Last Admin: 12/24/19 08:58 Dose: 100 mg Famotidine (Pepcid) 10 mg PO ASDIRECTED PRN PRN Reason: Abdominal Pain Finasteride (Proscar) 5 mg PO DAILY [facility] Last Admin: 12/25/19 08:18 Dose: 5 mg Fluticasone Propionate (Flonase) 0 gm NASBOTH DAILY [facility] Last Admin: 12/25/19 08:17 Dose: 1 spray Gabapentin (Neurontin) 300 mg PO BEDTIME [facility] Last Admin: 12/24/19 21:10 Dose: 300 mg Heparin Sodium (Porcine) (Heparin Sodium) 5,000 units SUBCUT Q12HR [facility] Last Admin: 12/25/19 08:17 Dose: 5,000 units Insulin Human Lispro (Humalog) 0 unit SUBCUT WITHMEALSANDBED [facility]; Protocol Last Admin: 12/25/19 08:22 Dose: Not Given Levofloxacin (Levaquin) 500 mg PO DAILY [facility] Last Admin: 12/25/19 08:18 Dose: 500 mg Lorazepam (Ativan) 0.25 mg PO BEDTIME PRN PRN Reason: Anxiety Last Admin: 12/24/19 21:23 Dose: 0.25 mg Magnesium Hydroxide (Milk Of Magnesia) 30 ml PO Q12H PRN PRN Reason: Constipation Mirtazapine (Remeron) 7.5 mg PO BEDTIME [facility] Last Admin: 12/24/19 21:11 Dose: 7.5 mg Montelukast Sodium (Singulair) 10 mg PO BEDTIME [facility] Last Admin: 12/24/19 21:10 Dose: 10 mg Nitroglycerin (Nitrostat) 0.4 mg SL ASDIRECTED PRN PRN Reason: Chest Pain Budesonide/Formoterol 160-4. 5mcg Inhaler * Patients Own* 2 puff INH BID [facility] Last Admin: 12/25/19 10:24 Dose: 2 puff Menthol/Zinc Oxide [ Calmoseptine] # Patient's Own# 0 applic TOP TID PRN PRN Reason: Itching Omeprazole (Omeprazole) 20 mg PO BIDAC [facility] Last Admin: 12/25/19 05:48 Dose: 20 mg Ondansetron HCl (Zofran) 4 mg IVPUSH Q6H PRN PRN Reason: Nausea/Vomiting Oxybutynin Chloride (Oxybutynin Er) 5 mg PO DAILY [facility] Last Admin: 12/25/19 08:18 Dose: 5 mg Prednisone (Prednisone) 40 mg PO WITHBREAKFAST [facility] Last Admin: 12/25/19 08:14 Dose: 40 mg Rosuvastatin Calcium (Crestor) 5 mg PO DAILY [facility] Last Admin: 12/25/19 08:15 Dose: 5 mg Senna/Docusate Sodium (Senna Plus) 2 tab PO BID [facility] Last Admin: 12/25/19 08:19 Dose: 2 tab Tiotropium [place] (Spiriva Handihaler) 18 mcg INH DAILY [facility] Last Admin: 12/25/19 08:20 Dose: 18 mcg Topiramate (Topamax) 100 mg PO BEDTIME [facility] Last Admin: 12/24/19 21:10 Dose: 100 mg Discontinued Medications Piperacillin Sod/Tazobactam (Sod 3.375 gm/ Sodium Chloride) 100 mls @ 200 mls/ hr IV ONETIME ONE Stop: 12/23/19 13:19 Last Admin: 12/23/19 13:02 Dose: 200 mls/hr Sodium Chloride (Normal Saline) 1,000 mls @ 250 mls/hr IV .BOLUS ONE Stop: 12/23/19 16:49 Last Admin: 12/23/19 13:01 Dose: 250 mls/hr Piperacillin Sod/Tazobactam (Sod 3.375 gm/ Sodium Chloride) 100 mls @ 200 mls/ hr IV Q6H [facility] Last Infusion: 12/24/19 06:40 Dose: Infused Sodium Chloride (Normal Saline) 1,000 mls @ 125 mls/hr IV ASDIRECTED [facility] Last Infusion: 12/24/19 10:13 Dose: Infused Sodium Chloride (Normal Saline) 1,000 mls @ 999 mls/hr IV ASDIRECTED ONE Stop: 12/23/19 18:00 Last Admin: 12/23/19 17:11 Dose: 700 mls/hr Sodium Chloride (Normal Saline) 1,000 mls @ 999 mls/hr IV ASDIRECTED ANKUR Sodium Chloride (Normal Saline) 1,000 mls @ 999 mls/hr IV ASDIRECTED [facility] Last Admin: 12/23/19 20:22 Dose: 999 mls/hr Piperacillin Sod/Tazobactam (Sod 3.375 gm/ Sodium Chloride) 100 mls @ 200 mls/ hr IV Q6HR [facility] Last Infusion: 12/24/19 19:21 Dose: Infused Levofloxacin (Levaquin) 500 mg PO Q24H [facility] Last Admin: 12/25/19 00:30 Dose: Not Given Levofloxacin (Levaquin) 500 mg PO Q24H [facility] Methylprednisolone Sodium Succinate (Solu-Medrol) 40 mg IVPUSH Q8HR [facility] Last Admin: 12/24/19 21:34 Dose: 40 mg Non-Formulary Medication (Fluvastatin [Lescol]) 20 mg PO .MON,SAT,SAT [facility] Non-Formulary Medication (Mirabegron [Myrbetriq]) 50 mg PO DAILY [facility] Last Admin: 12/25/19 10:02 Dose: Not Given Sodium Chloride (Saline Flush) 10 ml FLUSH ASDIRECTED PRN PRN Reason: IV Use - Exam Quality Assessment: Reports: DVT Prophylaxis General: Reports: Alert, Oriented HEENT: Reports: Pupils Equal, Pupils Reactive, EOMI, Mucous Membr. Moist/[place] Neck: Reports: Supple Lungs: Reports: Clear to Auscultation, Normal Respiratory Effort Cardiovascular: Reports: Regular Rate, Regular Rhythm GI/Abdominal Exam: Normal Bowel Sounds, Soft, Non-Tender, No Organomegaly, No Distention, No Abnormal Bruit, No Mass, Pelvis Stable (Male) Exam: No Hernia, Normal Inspection, Normal Prostate, Circumcised Rectal (Males) Exam: Normal Exam, Normal Rectal Tone, Prostate Normal Back Exam: Reports: Normal Inspection, Full Range of Motion Extremities: Normal Inspection, Normal Range of Motion, Non-Tender, No Pedal Edema, Normal Capillary Refill Skin: Reports: Warm, Dry, Intact Wound/Incisions: Reports: Healing Well Neurological: Reports: No New Focal Deficit Psy/Mental Status: Reports: Alert, Normal Affect, Normal Mood
== END 2019-12-25 11:25 | disposition home or self-care (01) | DRG 871 ==
LOC: DL.ED 10:53 → DL.MS 13:00
PROVIDERS: ADMIT Student in an Organized Health Care Education/Training Program; ATTEND Student in an Organized Health Care Education/Training Program
DX: A41.9 Sepsis, unspecified organism (principal); J96.21 Acute and chronic respiratory failure with hypoxia; J18.9 Pneumonia, unspecified organism; J44.0 Chronic obstructive pulmonary disease with (acute) lower respiratory infection; N40.0 Benign prostatic hyperplasia without lower urinary tract symptoms; E78.5 Hyperlipidemia, unspecified; F17.210 Nicotine dependence, cigarettes, uncomplicated; J44.1 Chronic obstructive pulmonary disease with (acute) exacerbation; E11.9 Type 2 diabetes mellitus without complications; N40.1 Benign prostatic hyperplasia with lower urinary tract symptoms; R33.8 Other retention of urine; H54.7 Unspecified visual loss; E78.00 Pure hypercholesterolemia, unspecified; I10 Essential (primary) hypertension; F41.9 Anxiety disorder, unspecified; I25.2 Old myocardial infarction; Z98.890 Other specified postprocedural states; Z87.01 Personal history of pneumonia (recurrent); J84.10 Pulmonary fibrosis, unspecified; K21.9 Gastro-esophageal reflux disease without esophagitis; R32 Unspecified urinary incontinence; E11.42 Type 2 diabetes mellitus with diabetic polyneuropathy; F32.9 Major depressive disorder, single episode, unspecified; Z88.8 Allergy status to other drugs, medicaments and biological substances; F43.10 Post-traumatic stress disorder, unspecified; Z95.1 Presence of aortocoronary bypass graft; Z88.1 Allergy status to other antibiotic agents; Z88.2 Allergy status to sulfonamides; Z79.84 Long term (current) use of oral hypoglycemic drugs; Z79.82 Long term (current) use of aspirin; Z79.51 Long term (current) use of inhaled steroids; Z79.52 Long term (current) use of systemic steroids; Z79.899 Other long term (current) drug therapy
CPT/HCPCS: 36415; 71046; 80053; 82962; 83605; 83735; 83880; 84100; 84484; 85025; 85027; 87040; 93005; 94640; 99284; 99285-25; A9270-GY; J1644; J1815-GY; J2543; J2920; J7030; J7050; J7620-GY

== ENCOUNTER 2021-04-06 13:33 | Emergency (ER) | payer MEDICARE, BC ==
[2021-04-06 14:51] VITALS: BP 109/72
[2021-04-06] MEDS ORDERED: Sodium Chloride 0.9% 10 ML Syringe FLUSH PRN (14:52)
[2021-04-06] MEDS ORDERED: Albuterol/Ipratropium 3.0-0.5 MG/3 ML Neb Soln NEB ONE (14:52)
[2021-04-06] MEDS ORDERED: Budesonide 0.5 MG/2 ML Neb Susp NEB ONE (14:52)
[2021-04-06] MEDS ORDERED: methylPREDNISolone Sodium Succinate 125 MG/2 ML SDV IVPUSH ONE (14:52)
--- NOTE | 2021-04-06 14:53 | EDM.PDOC ---
ED HPI GENERAL MEDICAL PROBLEM - General Chief Complaint: Respiratory Problem Stated Complaint: COPD IS REALLY BAD Time Seen by Provider: 04/06/21 14:50 Source of Information: Reports: Patient History Limitations: Reports: No Limitations - History of Present Illness INITIAL COMMENTS - FREE TEXT/NARRATIVE: Patient presents to the emergency department today with complaints of his COPD getting much worse. This patient has a longstanding history of COPD for which he is on nebulizers for COPD. He continues to smoke at home. Over the past 3 to 4 days he has had increasing shortness of breath and difficulty breathing at home. He has not had any fever or chills. He has had about the normal amount of purulence in his sputum. No increase in amount of his sputum. No pain in his chest. No weakness dizziness lightheadedness. Palpitations. No syncope. No abdominal pain nausea or vomiting. No hematuria dysuria or urinary frequency. No black or tarry stools. Patient has received his Covid vaccine. He has had no change in his recent COPD management. This patient is also complaining of right lower lateral chest wall pain. This happened during the night when he had a severe coughing fit. This happened after his shortness of breath is gotten worse. He has had no other symptoms. He has tried Tylenol and ibuprofen without improvement. Right Lower Chest Pain Score (Numeric/FACES): 7 - Related Data Allergies Allergy/AdvReac Type Severity Reaction Status Date / Time sulfamethoxazole Allergy Intermediate Rash Verified 12/23/19 14:05 [From Bactrim] trimethoprim [From Bactrim] Allergy Intermediate Rash Verified 12/23/19 14:05 etodolac [Etodolac] Allergy Mild Nausea Verified 12/23/19 14:05 azithromycin [From Zithromax] Allergy Rash Verified 12/23/19 14:05 simvastatin Allergy muscle ache Verified 12/23/19 14:05 Sulfa (Sulfonamide Allergy Cannot Verified 12/23/19 14:05 Antibiotics) Remember Home Meds: Home Meds Albuterol [Proventil HFA] 2 puff INH QID PRN 01/31/14 [History] Aspirin [Ecotrin EC] 81 mg PO BEDTIME 01/31/14 [History] Gabapentin [Neurontin] 300 mg PO BEDTIME 01/31/14 [History] Tiotropium [Spiriva HandiHaler] 18 mcg INH DAILY 02/13/15 [History] Ibuprofen 200 mg PO BID PRN 07/17/18 [History] LORazepam 0.25 mg PO BEDTIME PRN 07/17/18 [History] Mirtazapine 7.5 mg PO BEDTIME 07/17/18 [History] Topiramate 100 mg PO BEDTIME 07/17/18 [History] metFORMIN HCl [Metformin HCl] 1,000 mg PO BID 07/18/18 [History] Budesonide/Formoterol [Symbicort 160-4.5 MCG] 2 puff INH BID 09/25/18 [History] Cyclobenzaprine [Flexeril] 5 mg PO Q8H PRN 09/25/18 [History] Fluticasone Propionate [Flonase] 1 spray NASBOTH DAILY 09/25/18 [History] Cholecalciferol (Vitamin D3) [Vitamin D3] 2,000 units PO DAILY 10/01/18 [History] Finasteride [Proscar] 5 mg PO DAILY 10/01/18 [History] Nitroglycerin 0.4 mg SL ASDIRECTED PRN 10/01/18 [History] Albuterol [Proventil Neb Soln] 3 ml INH Q4HR PRN 02/13/19 [History] Fluvastatin [Lescol] 20 mg PO .MON,WED,FRI 02/13/19 [History] Montelukast Sodium [Singulair] 10 mg PO DAILY 02/13/19 [History] Sennosides/Docusate Sodium [Senna-S] 2 tab PO BID 02/13/19 [History] polyethylene glycoL 3350 [MiraLAX] 17 gm PO DAILY PRN 02/13/19 [History] predniSONE [Prednisone] 20 mg PO DAILY 3 Days #3 tablet 02/16/19 [Rx] Benzonatate 1 cap PO Q6H 12/23/19 [History] Clotrimazole/Betamethasone Dip [Lotrisone Cream] 1 applic TOP BID PRN 12/23/19 [History] Menthol/Zinc Oxide [Calmoseptine] 1 applic TOP TID PRN 12/23/19 [History] Omeprazole 20 mg PO BID 12/23/19 [History] Oxybutynin [Oxybutynin ER] 5 mg PO DAILY 12/23/19 [History] Rosuvastatin [Crestor] 5 mg PO DAILY 12/23/19 [History] diazePAM [Valium] 5 mg PO Q6H PRN 12/23/19 [History] levoFLOXacin [Levaquin] 500 mg PO DAILY #7 tablet 12/25/19 [Rx] Past Medical History HEENT History: Reports: Impaired Vision Cardiovascular History: Reports: High Cholesterol, Hypertension, IA Other Cardiovascular History: Quarduple Bypass Respiratory History: Reports: COPD, Pneumonia, Recurrent, Pulmonary Fibrosis, SOB Gastrointestinal History: Reports: GERD, Other (See Below) Other Gastrointestinal History: Hernia Repair-unbilical Genitourinary History: Reports: Prostate Disorder, Retention, Urinary Musculoskeletal History: Reports: Other (See Below) Other Musculoskeletal History: rotator cuff tear-right Neurological History: Reports: Concussion, Migraines, Neuropathy, Peripheral Psychiatric History: Reports: Anxiety, PTSD Endocrine/Metabolic History: Reports: Diabetes, Type II - Infectious Disease History Infectious Disease History: Reports: Chicken Pox, Shingles - Past Surgical History HEENT Surgical History: Reports: Oral Surgery Other HEENT Surgeries/Procedures: upper and lower dentures Cardiovascular Surgical History: Reports: Coronary Artery Bypass GI Surgical History: Reports: Hernia, Abdominal Neurological Surgical History: Reports: Lumbar Spine Social & Family History - Family History Family Medical History: No Pertinent Family History - Caffeine Use Caffeine Use: Reports: Coffee ED ROS GENERAL - Review of Systems Review Of Systems: Comprehensive ROS is negative, except as noted in HPI. ED EXAM, GENERAL - Physical Exam Exam: See Below Exam Limited By: No Limitations General Appearance: Alert, No Apparent Distress Eye Exam: Bilateral Eye: EOMI Head: Atraumatic, Normocephalic Neck: Normal Inspection, Supple Respiratory/Chest: No Accessory Muscle Use, Decreased Breath Sounds, Wheezing (Mild to moderate expiratory wheezing bilaterally. No rhonchi crackles or rales). No: Chest Non-Tender (Tenderness to the right anterior lateral aspect of the rib cage. There is no bruising swelling ecchymosis bony deformity subcutaneous emphysema or other signs of pathology.) Cardiovascular: Normal Peripheral Pulses, Regular Rate, Rhythm GI/Abdominal: Normal Bowel Sounds, Soft Rectal (Males) Exam: Deferred Neurological: Alert, Oriented, Normal Cognition, No Motor/Sensory Deficits Psychiatric: Normal Affect Skin Exam: Warm, Dry, Intact, Normal Color, No Rash Course - Vital Signs Last Recorded V/S: Last Vital Signs Temp 98.2 F 04/06/21 14:10 Pulse 77 04/06/21 14:52 Resp 18 04/06/21 14:10 BP 109/72 04/06/21 14:10 Pulse Ox 99 04/06/21 14:52 - Orders/Labs/Meds Labs: Laboratory Tests 04/06/21 04/06/21 04/06/21 Range/Units 15:05 15:45 15:45 WBC 12.7 H (5.0-10.0) 10^3/uL RBC 4.08 L (4.6-6.2) 10^6/uL Hgb 12.5 L (14.0-18.0) g/dL Hct 39.7 L (40.0-54.0) % MCV 97.3 D (80-100) fL MCH 30.6 (27.0-34.0) pg MCHC 31.5 L (33.0-35.0) g/dL Plt Count 276 (150-450) 10^3/uL Neut % (Auto) 85.9 H (42.2-75.2) % Lymph % (Auto) 7.1 L (20.5-50.1) % [place] % (Auto) 6.2 (2-8) % Eos % (Auto) 0.6 L (1.0-3.0) % Baso % (Auto) 0.2 (0.0-1.0) % Sodium 138 (136-145) mmol/L Potassium 4.5 (3.5-5.1) mmol/L Chloride 104 (98-107) mmol/L Carbon Dioxide 24 (21-32) mmol/L Anion Gap 14.5 H (7-13) mEq/L BUN 25 H (7-18) mg/dL Creatinine 1.23 (0.70-1.30) mg/dL Est Cr Clr Drug Dosing 42.21 mL/min Estimated GFR (MDRD) 58 BUN/Creatinine Ratio 20.3 (No establ ref range) Glucose 134 H (70-99) mg/dL Lactic Acid (0.4-2.0) mmol/L Calcium 8.5 (8.5-10.1) mg/dL Total Bilirubin 0.4 (0.2-1.0) mg/dL AST 12 L (15-37) U/L ALT 14 L (16-63) U/L Alkaline Phosphatase 105 (46-116) U/L Troponin I High Sens 9 (<=76) pg/mL C-Reactive Protein 6.5 H (0.0-0.9) mg/dL B-Natriuretic Peptide 119 H (0-100) pg/ml Total Protein 5.7 L (6.4-8.2) g/dL Albumin 2.9 L (3.4-5.0) g/dL Globulin 2.8 Albumin/Globulin Ratio 1.04 Procalcitonin ng/mL SARS-CoV-2 RNA (EFREN) Negative (NEGATIVE) 04/06/21 04/06/21 Range/Units 15:45 15:45 WBC (5.0-10.0) 10^3/uL RBC (4.6-6.2) 10^6/uL Hgb (14.0-18.0) g/dL Hct (40.0-54.0) % MCV (80-100) fL MCH (27.0-34.0) pg MCHC (33.0-35.0) g/dL Plt Count (150-450) 10^3/uL Neut % (Auto) (42.2-75.2) % Lymph % (Auto) (20.5-50.1) % [place] % (Auto) (2-8) % Eos % (Auto) (1.0-3.0) % Baso % (Auto) (0.0-1.0) % Sodium (136-145) mmol/L Potassium (3.5-5.1) mmol/L Chloride (98-107) mmol/L Carbon Dioxide (21-32) mmol/L Anion Gap (7-13) mEq/L BUN (7-18) mg/dL Creatinine (0.70-1.30) mg/dL Est Cr Clr Drug Dosing mL/min Estimated GFR (MDRD) BUN/Creatinine Ratio (No establ ref range) Glucose (70-99) mg/dL Lactic Acid 2.8 H* (0.4-2.0) mmol/L Calcium (8.5-10.1) mg/dL Total Bilirubin (0.2-1.0) mg/dL AST (15-37) U/L ALT (16-63) U/L Alkaline Phosphatase (46-116) U/L Troponin I High Sens (<=76) pg/mL C-Reactive Protein (0.0-0.9) mg/dL B-Natriuretic Peptide (0-100) pg/ml Total Protein (6.4-8.2) g/dL Albumin (3.4-5.0) g/dL Globulin Albumin/Globulin Ratio Procalcitonin 0.11 H ng/mL SARS-CoV-2 RNA (EFREN) (NEGATIVE) Meds: Medications Discontinued Medications Generic Name Dose Route Start Last Admin Trade Name Freq PRN Reason Stop Dose Admin Albuterol/Ipratropium 3 ml 04/06/21 14:52 04/06/21 15:41 Albuterol/Ipratropium 3.0-0.5 Mg/3 Ml Neb Soln NEB 04/06/21 14:53 3 ml ONETIME ONE Administration Budesonide 0.5 mg 04/06/21 14:52 04/06/21 15:41 Budesonide 0.5 Mg/2 Ml Neb Susp NEB 04/06/21 14:53 0.5 mg ONETIME ONE Administration Doxycycline Monohydrate 100 mg 04/06/21 16:51 04/06/21 16:58 Doxycycline Monohydrate 100 Mg Cap PO 04/06/21 16:52 100 mg ONETIME ONE Administration Methylprednisolone Sodium Succinate 125 mg 04/06/21 14:52 04/06/21 15:41 Methylprednisolone Sodium Succinate 125 Mg/2 Ml Sdv IVPUSH 04/06/21 14:53 125 mg ONETIME ONE Administration Sodium Chloride 10 ml 04/06/21 14:52 04/06/21 15:41 Sodium Chloride 0.9% 10 Ml Syringe FLUSH 10 ml ASDIRECTED PRN Administration Keep Vein Open - Radiology Interpretation Free Text/Narrative:: Chest x-ray per radiology radiographic evidence of severe COPD and previous chest surgery. Possibly early heart failure. No new lung mass and/or alveolar interstitial pneumonia. No rib fracture - Re-Assessments/Exams Free Text/Narrative Re-Assessment/Exam: Laboratory evaluation is rather unremarkable with a mildly elevated white blood cell count of 12.7. Hemoglobin is baseline at 12.5. CRP is minimally elevated at 6.5. Negligible elevation of his proBNP at 119. CXR negative for rib fracture. Most likely the pain he is having is either strain costal muscles or a small unidentifiable rib fracture on the chest x-ray with his severe COPD this would be a concern as well. He will treat symptomatically at this time with tramadol. Troponin high-sensitivity is negative at 9. He has been having increasing shortness of breath over the past couple days. He did receive his budesonide and DuoNeb nebulizer in the emergency department. He did feel quite a bit better and back to his baseline. Patient has some pretty impressive COPD on my extemporaneously review of his chest x-ray. He is still use MDI inhalers at home according to the patient for his daily maintenance therapy. He refuses to take any prednisone at home as he does not like the way it makes him feel. He did accept some prednisone in the emergency department. We will switch him from MDI inhalers at home to nebulizers for the next couple of weeks to see how this does for controlling his chronic severe COPD. We will also start him on a course of doxycycline. Anything new or worse he is to recheck. Discharge directions as below are explained to the patient he was comfortable with this plan and his questions are answered. Procalcitonin was pending upon discharge. At the time of the note his procalcitonin has returned to 0.11 which shows no signs of septic shock or progression towards sepsis Departure - Departure Time of Disposition: 16:48 Disposition: Home, Self-Care 01 Clinical Impression: COPD exacerbation, Rib pain on right side - Discharge Information Instructions: Chronic Obstructive Pulmonary Disease Exacerbation, [id number], Chest Wall Pain, [id number] Referrals: PCP,None [Primary Care Provider] - Forms: ED Department Discharge Additional Instructions: Heat or Ice to the area of rib pain. Tylenol and or Ibuprofen as needed for the rib pain. If pain not controlled with above. Tramadol 1 tablet twice daily as needed for pain caution sedation. Albuterol nebs as needed and make sure and use them before your daily controller medications. Hold your symbicort for now I will replace with below better for COPD exacerbation. Restart after 2 weeks. Budesnonide 1 ampule twice daily for the next 2 week. Brovanan 1 ampule twice daily for the next 2 weeks. Then Prednisone 40mg daily for the next 5 days. Rx given to the patient. Doxycycline 1 tablet twice daily for the next 7 days. RX given to the patient. Consider quitting smoking every day to help your COPD. Return to the ED if new or worsening symptoms. Follow up with PCP next week for recheck. Sepsis Event Note (ED) - Evaluation Sepsis Screening Result: No Definite Risk
[2021-04-06 15:48] VITALS: PULSE 77
--- NOTE | 2021-04-06 16:05 | CR ---
EXAMINATION: Chest 2V SEX: Male AGE: 70 years CLINICAL HISTORY: 70-year-old male with COPD, increased congestion and shortness of breath (SOB). Comparison exam 23 December 2019. Interpretation: Abnormal. 1. Generalized hyperinflation lung bob with extensive pleural parenchymal scarring. (Pronounced flattening hemidiaphragms) 2. Sternotomy wires. Small cardiac silhouette. 3. Prominent proximal pulmonary artery segments symmetric and relatively unchanged since November, exam. 4. Generalized, relative, slight increase pulmonary vascular congestion but no cephalization of flow, alveolar edema or dependent pleural fluid accumulation. Significance? BNP? Weight gain question 5. Nondescript nodularity scattered left lung, unchanged. 6. No suspicious new lung mass, hilar lymphadenopathy, alveolar infiltrate, or peripheral "groundglass" interstitial densities. CONCLUSION: Radiographic evidence severe COPD and previous chest surgery. Possible early heart failure. No new lung mass and no alveolar/interstitial pneumonia.
[2021-04-06 16:20] LABS: ANION GAP 14.5 mEq/L (7-13)
[2021-04-06] MEDS ORDERED: Doxycycline Monohydrate 100 MG Cap PO ONE (16:51)
--- NOTE | 2021-04-06 16:59 | PCM.EKG ---
#1 Interpretation EKG Date: 04/06/21 Time: 15:11 Rhythm: NSR Rate (Beats/Min): 78 [place]: Normal P-Wave: Present QRS: Normal ST-T: Normal QT: Normal Comparison: No Change
== END 2021-04-06 17:25 | disposition home or self-care (01) ==
LOC: DL.ED 13:33
DX: J44.1 Chronic obstructive pulmonary disease with (acute) exacerbation (principal); E78.00 Pure hypercholesterolemia, unspecified; I10 Essential (primary) hypertension; E11.40 Type 2 diabetes mellitus with diabetic neuropathy, unspecified; I25.2 Old myocardial infarction; Z79.82 Long term (current) use of aspirin; Z88.2 Allergy status to sulfonamides; Z88.8 Allergy status to other drugs, medicaments and biological substances; Z88.1 Allergy status to other antibiotic agents; Z79.84 Long term (current) use of oral hypoglycemic drugs; Z79.899 Other long term (current) drug therapy; Z20.822 Contact with and (suspected) exposure to COVID-19
CPT/HCPCS: 36415; 71046; 80053; 83605; 83880; 84145; 84484; 85025; 86140; 87040; 93005; 94640; 96374; 99285; A9270; J2930; U0002; J7620-GY

== ENCOUNTER 2021-08-08 08:39 | Inpatient (IN) | payer OTHER, MEDICARE, BC ==
--- NOTE | 2021-08-08 08:53 | EDM.PDOC ---
ED HPI GENERAL MEDICAL PROBLEM - General Chief Complaint: Respiratory Problem Stated Complaint: PNEMONIA AND COPD [id number] Time Seen by Provider: 08/08/21 08:47 Source of Information: Reports: Patient, Old Records, RN, RN Notes Reviewed History Limitations: Reports: No Limitations - History of Present Illness INITIAL COMMENTS - FREE TEXT/NARRATIVE: Pt presents to ER from home by POV with c/o shortness of breath, and suspected pneumonia. Pt states he was seen at [facility] yesterday and told that he has severe COPD, and the "start of pneumonia", but was not prescribed any me dications. Pt c/o chills and small amount of green/peacock sputum production. Denies fever, chest pain, or edema. Pt states he is continuous supplemental oxygen dependent at 4L/minute. He is fully COVID immunized, and has had a flu shot this year. Pt was a heavy life long smoker, and still smokes two cigarettes a day. He was evaluated for a right lung mass a few months ago, but isn't sure what was found. Pt states he goes for a COVID test once a week, and has been negative every time. 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 - Related Data Allergies Allergy/AdvReac Type Severity Reaction Status Date / Time sulfamethoxazole Allergy Intermediate Rash Verified 08/08/21 09:14 [From Bactrim] trimethoprim [From Bactrim] Allergy Intermediate Rash Verified 08/08/21 09:14 etodolac [Etodolac] Allergy Mild Nausea Verified 08/08/21 09:14 azithromycin [From Zithromax] Allergy Rash Verified 08/08/21 09:14 simvastatin Allergy muscle ache Verified 08/08/21 09:14 Sulfa (Sulfonamide Allergy Cannot Verified 08/08/21 09:14 Antibiotics) Remember Home Meds: Home Meds Albuterol [Proventil HFA] 2 puff INH QID PRN 01/31/14 [History] Aspirin [Ecotrin EC] 81 mg PO BEDTIME 01/31/14 [History] Gabapentin [Neurontin] 300 mg PO BEDTIME 01/31/14 [History] Tiotropium [Spiriva HandiHaler] 18 mcg INH DAILY 02/13/15 [History] Ibuprofen 200 mg PO BID PRN 07/17/18 [History] LORazepam 0.25 mg PO BEDTIME PRN 07/17/18 [History] Mirtazapine 7.5 mg PO BEDTIME 07/17/18 [History] Topiramate 100 mg PO BEDTIME 07/17/18 [History] metFORMIN HCl [Metformin HCl] 1,000 mg PO BID 07/18/18 [History] Budesonide/Formoterol [Symbicort 160-4.5 MCG] 2 puff INH BID 09/25/18 [History] Cyclobenzaprine [Flexeril] 5 mg PO Q8H PRN 09/25/18 [History] Fluticasone Propionate [Flonase] 1 spray NASBOTH DAILY 09/25/18 [History] Cholecalciferol (Vitamin D3) [Vitamin D3] 2,000 units PO DAILY 10/01/18 [History] Finasteride [Proscar] 5 mg PO DAILY 10/01/18 [History] Nitroglycerin 0.4 mg SL ASDIRECTED PRN 10/01/18 [History] Albuterol [Proventil Neb Soln] 3 ml INH Q4HR PRN 02/13/19 [History] Fluvastatin [Lescol] 20 mg PO .MON,WED,FRI 02/13/19 [History] Montelukast Sodium [Singulair] 10 mg PO DAILY 02/13/19 [History] Sennosides/Docusate Sodium [Senna-S] 2 tab PO BID 02/13/19 [History] polyethylene glycoL 3350 [MiraLAX] 17 gm PO DAILY PRN 02/13/19 [History] predniSONE [Prednisone] 20 mg PO DAILY 3 Days #3 tablet 02/16/19 [Rx] Benzonatate 1 cap PO Q6H 12/23/19 [History] Clotrimazole/Betamethasone Dip [Lotrisone Cream] 1 applic TOP BID PRN 12/23/19 [History] Menthol/Zinc Oxide [Calmoseptine] 1 applic TOP TID PRN 12/23/19 [History] Omeprazole 20 mg PO BID 12/23/19 [History] Oxybutynin [Oxybutynin ER] 5 mg PO DAILY 12/23/19 [History] Rosuvastatin [Crestor] 5 mg PO DAILY 12/23/19 [History] diazePAM [Valium] 5 mg PO Q6H PRN 12/23/19 [History] levoFLOXacin [Levaquin] 500 mg PO DAILY #7 tablet 12/25/19 [Rx] Past Medical History HEENT History: Reports: Impaired Vision Cardiovascular History: Reports: High Cholesterol, Hypertension, ID Other Cardiovascular History: Quarduple Bypass Respiratory History: Reports: COPD, Pneumonia, Recurrent, Pulmonary Fibrosis, SOB Gastrointestinal History: Reports: GERD, Other (See Below) Other Gastrointestinal History: Hernia Repair-unbilical Genitourinary History: Reports: Prostate Disorder, Retention, Urinary Musculoskeletal History: Reports: Other (See Below) Other Musculoskeletal History: rotator cuff tear-right Neurological History: Reports: Concussion, Migraines, Neuropathy, Peripheral Psychiatric History: Reports: Anxiety, PTSD Endocrine/Metabolic History: Reports: Diabetes, Type II - Infectious Disease History Infectious Disease History: Reports: Chicken Pox, Shingles - Past Surgical History HEENT Surgical History: Reports: Oral Surgery Other HEENT Surgeries/Procedures: upper and lower dentures Cardiovascular Surgical History: Reports: Coronary Artery Bypass GI Surgical History: Reports: Hernia, Abdominal Neurological Surgical History: Reports: Lumbar Spine Social & Family History - Family History Family Medical History: No Pertinent Family History - Tobacco Use Tobacco Use Status *Q: Current Every Day Tobacco User Tobacco Use Within Last Twelve Months: Cigarettes Years of Tobacco use: 55 - Caffeine Use Caffeine Use: Reports: Coffee - Recreational Drug Use Recreational Drug Use: No - Living Situation & Occupation Occupation: Retired ED ROS GENERAL - Review of Systems Review Of Systems: Comprehensive ROS is negative, except as noted in HPI. ED EXAM, GENERAL - Physical Exam Exam: See Below Exam Limited By: No Limitations General Appearance: Alert, No Apparent Distress, Anxious, Thin, Other (Chronically ill appearing) Eye Exam: Bilateral Eye: Normal Inspection Ears: Normal External Exam Nose: Normal Inspection Throat/Mouth: Normal Lips, Normal Voice, No Airway Compromise. No: Perioral Cyanosis Head: Atraumatic, Normocephalic Neck: Normal Inspection, Non-Tender Respiratory/Chest: No Respiratory Distress, No Accessory Muscle Use, Chest Non- Tender, Decreased Breath Sounds, Crackles, Rhonchi, Wheezing, Other (Moist, rattling cough) Cardiovascular: Regular Rate, Rhythm, No Edema GI/Abdominal: Normal Bowel Sounds, Soft, Non-Tender Back Exam: Normal Inspection Extremities: Normal Inspection, No Pedal Edema Neurological: Alert, Oriented, CN II-XII Intact, Normal Cognition, No Motor/Sensory Deficits Psychiatric: Anxious, Depressed Mood, Flat Affect Skin Exam: Warm, Dry, Intact, Normal Color, No Rash #1 Interpretation EKG Date: 08/08/21 Time: 09:28 Rhythm: Other (SR) Rate (Beats/Min): 68 Orange: Normal P-Wave: Enlarged (left atrial enlargement) QRS: Other (LVH) ST-T: Elevated (anterior, likely due to LVH) QT: Normal Comparison: No Change (unchanged compared to March 2021 EKG) Course - Vital Signs Last Recorded V/S: Last Vital Signs Temp 98.2 F 08/08/21 09:09 Pulse 85 08/08/21 09:09 Resp 36 H 08/08/21 09:09 BP 148/88 H 08/08/21 09:09 Pulse Ox 94 L 08/08/21 09:09 - Orders/Labs/Meds Orders: Active Orders 24 hr Category Date Time Status Peripheral IV Care [RC] . DIRECTED Care 08/08/21 09:14 Active RT Aerosol Therapy [RC] ASDIRECTED Care 08/08/21 09:14 Active COVID-19/FLU A+B [MOLEC] Stat Lab 08/08/21 09:32 Received CULTURE BLOOD [BC] Stat Lab 08/08/21 09:25 Results CULTURE BLOOD [BC] Stat Lab 08/08/21 09:33 Received UA RFX DANAY AND CULT IF INDIC [URIN] Stat Lab 08/08/21 09:14 Ordered Sodium Chloride 0.9% [Saline Flush] Med 08/08/21 09:13 Active 10 ml FLUSH ASDIRECTED PRN Blood Culture x2 Reflex Set [OM.PC] Stat Oth 08/08/21 09:12 Ordered Peripheral IV Insertion Adult [OM.PC] Stat Oth 08/08/21 09:14 Ordered Medication Orders Sodium Chloride (Sodium Chloride 0.9% 10 Ml Syringe) 10 ml FLUSH ASDIRECTED PRN PRN Reason: Keep Vein Open Last Admin: 08/08/21 09:57 Dose: 10 ml Documented by: HODODEB Labs: Laboratory Tests 08/08/21 08/08/21 08/08/21 Range/Units 09:33 09:33 09:33 WBC 6.9 (5.0-10.0) 10^3/uL RBC 3.68 L (4.6-6.2) 10^6/uL Hgb 11.4 L (14.0-18.0) g/dL Hct 36.8 L (40.0-54.0) % MCV 100.0 (80-100) fL MCH 31.0 (27.0-34.0) pg MCHC 31.0 L (33.0-35.0) g/dL Plt Count 269 (150-450) 10^3/uL Neut % (Auto) 76.4 H (42.2-75.2) % Lymph % (Auto) 12.8 L (20.5-50.1) % [place] % (Auto) 7.5 (2-8) % Eos % (Auto) 2.7 (1.0-3.0) % Baso % (Auto) 0.6 (0.0-1.0) % Sodium 143 (136-145) mmol/L Potassium 3.9 (3.5-5.1) mmol/L Chloride 103 (98-107) mmol/L Carbon Dioxide 33 H (21-32) mmol/L Anion Gap 10.9 (7-13) mEq/L BUN 21 H (7-18) mg/dL Creatinine 0.98 (0.70-1.30) mg/dL Est Cr Clr Drug Dosing 54.79 mL/min Estimated GFR (MDRD) > 60 BUN/Creatinine Ratio 21.4 (No establ ref range) Glucose 107 H (70-99) mg/dL Lactic Acid 1.1 (0.4-2.0) mmol/L Calcium 9.1 (8.5-10.1) mg/dL Total Bilirubin 0.3 (0.2-1.0) mg/dL AST 11 L (15-37) U/L ALT 11 L (16-63) U/L Alkaline Phosphatase 106 (46-116) U/L Troponin I High Sens 15 (<=76) pg/mL B-Natriuretic Peptide 81 (0-100) pg/ml Total Protein 6.4 (6.4-8.2) g/dL Albumin 3.4 (3.4-5.0) g/dL Globulin 3.0 Albumin/Globulin Ratio 1.1 Meds: Medications Generic Name Dose Route Start Last Admin Trade Name Freq PRN Reason Stop Dose Admin Sodium Chloride 10 ml 08/08/21 09:13 08/08/21 09:57 Sodium Chloride 0.9% 10 Ml Syringe FLUSH 10 ml ASDIRECTED PRN Administration Keep Vein Open Discontinued Medications Generic Name Dose Route Start Last Admin Trade Name Freq PRN Reason Stop Dose Admin Albuterol/Ipratropium 3 ml 08/08/21 09:14 08/08/21 09:37 Albuterol/Ipratropium 3.0-0.5 Mg/3 Ml Neb Soln NEB 08/08/21 09:15 3 ml ONETIME ONE Administration Levofloxacin/Dextrose 500 mg/ 100 mls @ 100 mls/hr 08/08/21 09:15 08/08/21 09:47 Premix IV 08/08/21 10:14 100 mls/hr ONETIME ONE Administration Methylprednisolone Sodium Succinate 125 mg 08/08/21 09:14 08/08/21 09:54 Methylprednisolone Sodium Succinate 125 Mg/2 Ml Sdv IVPUSH 08/08/21 09:15 125 mg ONETIME ONE Administration - Radiology Interpretation Free Text/Narrative:: XR Chest: chronic severe obstructive pulm. disease without acute changes per radiologist report. - Re-Assessments/Exams Free Text/Narrative Re-Assessment/Exam: 08/08/21 10:00 Pt seen by pulmonology yesterday and advised to come to the hospital for admission, but he went home. Today he presents to the ER admitting that he has worsening shortness of breath, and is now agreeable to being admitted. Departure - Departure Time of Disposition: 10:15 (admitted to Dr. Singh) Disposition: Admitted As Inpatient 64 Condition: Fair Clinical Impression: Acute exacerbation of chronic obstructive pulmonary disease (COPD) Acute on chronic respiratory failure Qualifiers: Respiratory failure complication: unspecified whether with hypoxia or hypercapnia Qualified Code(s): J96.20 - Acute and chronic respiratory failure, unspecified whether with hypoxia or hypercapnia - Discharge Information *PRESCRIPTION DRUG MONITORING PROGRAM REVIEWED*: Not Applicable *COPY OF PRESCRIPTION DRUG MONITORING REPORT IN PATIENT ERNESTINA: Not Applicable Forms: ED Department Discharge Sepsis Event Note (ED) - Focused Exam Vital Signs: Vital Signs Temp Pulse Resp BP Pulse Ox 08/08/21 09:09 98.2 F 85 36 H 148/88 H 94 L - My Orders Last 24 Hours: My Active Orders 08/08/21 09:12 Blood Culture x2 Reflex Set [OM.PC] Stat 08/08/21 09:13 Sodium Chloride 0.9% [Saline Flush] 10 ml FLUSH ASDIRECTED PRN 08/08/21 09:14 Peripheral IV Care [RC] . DIRECTED RT Aerosol Therapy [RC] ASDIRECTED UA RFX DANAY AND CULT IF INDIC [URIN] Stat Peripheral IV Insertion Adult [OM.PC] Stat 08/08/21 09:25 CULTURE BLOOD [BC] Stat 08/08/21 09:32 COVID-19/FLU A+B [MOLEC] Stat 08/08/21 09:33 CULTURE BLOOD [BC] Stat - Assessment/Plan Last 24 Hours: My Active Orders 08/08/21 09:12 Blood Culture x2 Reflex Set [OM.PC] Stat 08/08/21 09:13 Sodium Chloride 0.9% [Saline Flush] 10 ml FLUSH ASDIRECTED PRN 08/08/21 09:14 Peripheral IV Care [RC] . DIRECTED RT Aerosol Therapy [RC] ASDIRECTED UA RFX DANAY AND CULT IF INDIC [URIN] Stat Peripheral IV Insertion Adult [OM.PC] Stat 08/08/21 09:25 CULTURE BLOOD [BC] Stat 08/08/21 09:32 COVID-19/FLU A+B [MOLEC] Stat 08/08/21 09:33 CULTURE BLOOD [BC] Stat
[2021-08-08] MEDS ORDERED: Sodium Chloride 0.9% 10 ML Syringe FLUSH PRN (09:13)
[2021-08-08] MEDS ORDERED: Albuterol/Ipratropium 3.0-0.5 MG/3 ML Neb Soln NEB ONE (09:14)
[2021-08-08] MEDS ORDERED: methylPREDNISolone Sodium Succinate 125 MG/2 ML SDV IVPUSH ONE (09:14)
[2021-08-08] MEDS ORDERED: Levofloxacin/Dextrose 5%-Water 500 MG in Premix Bag 1 BAG IV ONE (09:15)
--- NOTE | 2021-08-08 09:56 | CR ---
EXAMINATION: Chest 1V Frontal SEX: Male AGE: 71 years CLINICAL HISTORY: 71-year-old male with COPD and hypoxia (short of breath). Comparison CXR 06 April 2021. INTERPRETATION: Abnormal but no acute new cardiopulmonary changes since comparison CXR. 1. Evidence of chronic severe obstructive pulmonary disease i.e. generalized air trapping and pleural parenchymal scarring including bilateral blunting of costophrenic sulci. 2. Sternotomy wires. Small cardiac silhouette. 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 Oxygen cannula. 3. No pulmonary vascular congestion, cephalization of flow, alveolar edema or dependent new pleural effusions. 4. No new lung mass or hilar lymphadenopathy. 5. No alveolar infiltrates, air bronchograms, or peripheral "groundglass" interstitial lung densities. 6. No new cystic or bullous emphysematous lesions. No pneumothorax or pneumomediastinum.
[2021-08-08 10:03] LABS: ANION GAP 10.9 mEq/L (7-13); CHLORIDE,CL 103 mmol/L (98-107); SODIUM,NA 143 mmol/L (136-145)
[2021-08-08 10:29] LABS: CORONAVIRUS COVID-19 NAA NEGATIVE (NEGATIVE)
[2021-08-08] MEDS ORDERED: Bisacodyl 5 MG Tab PO PRN (11:50)
[2021-08-08] MEDS ORDERED: oxyCODONE 5 MG Tab PO PRN (11:50)
[2021-08-08] MEDS ORDERED: Docusate Sodium 100 MG Cap PO PRN (11:50)
--- NOTE | 2021-08-08 14:37 | PCM.HP ---
H&P History of Present Illness - General Date of Service: 08/08/21 Admit Problem/Dx: Admission Diagnosis/Problem Admission Diagnosis/Problem COPD, Moderate chronic obstructive pulmonary disease Mr. Metzger is a 68-year-old male with history of end-stage COPD and tobacco abuse who presents to the ED with complaints of worsening dyspnea for the past several days. Patient states he been short of breath for the past couple of months however his symptoms have gotten worse over the past 24-48 hours despite using his home nebulizers and albuterol inhalor. He had an appointment with the PCP regarding the COPD flare few days ago and was told that he might be developing a pneumonia. He continues to smoke at least 2 cigarettes a day. He is on chronic prednisone therapy for his end stage COPD. He has a history of exposure to a lot of respiratory toxins during his time as a young man. He says he was exposed to agent orange while in [place], later on he worked at a [employer]. 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 Patient denies any fevers, chills malaise. He denies having any coughing or phlegm production. He does have some wheezes and chest tightness but denies any chest pressure per se. - Related Data Allergies/Adverse Reactions: Allergies Allergy/AdvReac Type Severity Reaction Status Date / Time sulfamethoxazole Allergy Intermediate Rash Verified 08/08/21 09:14 [From Bactrim] trimethoprim [From Bactrim] Allergy Intermediate Rash Verified 08/08/21 09:14 etodolac [Etodolac] Allergy Mild Nausea Verified 08/08/21 09:14 azithromycin [From Zithromax] Allergy Rash Verified 08/08/21 09:14 simvastatin Allergy muscle ache Verified 08/08/21 09:14 Sulfa (Sulfonamide Allergy Cannot Verified 08/08/21 09:14 Antibiotics) Remember Home Medications: Home Meds Albuterol [Proventil HFA] 2 puff INH QID PRN 01/31/14 [History] Aspirin [Ecotrin EC] 81 mg PO BEDTIME 01/31/14 [History] Gabapentin [Neurontin] 300 mg PO BEDTIME 01/31/14 [History] Tiotropium [Spiriva HandiHaler] 18 mcg INH DAILY 02/13/15 [History] Ibuprofen 200 mg PO BID PRN 07/17/18 [History] Mirtazapine 7.5 mg PO BEDTIME 07/17/18 [History] Topiramate 200 mg PO BEDTIME 07/17/18 [History] metFORMIN HCl [Metformin HCl] 1,000 mg PO BID 07/18/18 [History] Fluticasone Propionate [Flonase] 1 spray NASBOTH DAILY 09/25/18 [History] Nitroglycerin 0.4 mg SL ASDIRECTED PRN 10/01/18 [History] Albuterol [Proventil Neb Soln] 3 ml INH Q4HR PRN 02/13/19 [History] Fluvastatin [Lescol] 20 mg PO .MON,WED,FRI 02/13/19 [History] Montelukast Sodium [Singulair] 10 mg PO DAILY 02/13/19 [History] Sennosides/Docusate Sodium [Senna-S] 2 tab PO BID 02/13/19 [History] polyethylene glycoL 3350 [MiraLAX] 17 gm PO DAILY PRN 02/13/19 [History] Menthol/Zinc Oxide [Calmoseptine] 1 applic TOP TID PRN 12/23/19 [History] Furosemide [Lasix] 10 mg PO DAILY PRN 08/08/21 [History] LORazepam [Ativan] 0.5 mg PO Q6H PRN 08/08/21 [History] Pantoprazole [ProTONIX] 40 mg PO DAILY 08/08/21 [History] predniSONE [Prednisone] 5 mg PO DAILY 08/08/21 [History] Past Medical History HEENT History: Reports: Impaired Vision Cardiovascular History: Reports: High Cholesterol, Hypertension, MT, SOB on Exertion Other Cardiovascular History: Quarduple Bypass Respiratory History: Reports: COPD, Pneumonia, Recurrent, Pulmonary Fibrosis, Sleep Apnea, SOB Gastrointestinal History: Reports: GERD, Other (See Below) Other Gastrointestinal History: Hernia Repair-unbilical Genitourinary History: Reports: Prostate Disorder, Retention, Urinary Musculoskeletal History: Reports: Other (See Below) Other Musculoskeletal History: rotator cuff tear-right Neurological History: Reports: Concussion, Migraines, Neuropathy, Peripheral Psychiatric History: Reports: Addiction, Alzheimers Disease, Anxiety, PTSD, Other (See Below) Other Psychiatric History: Pt states he thinks he's getting early alztimers Endocrine/Metabolic History: Reports: Diabetes, Type II Hematologic History: Reports: None Oncologic (Cancer) History: Reports: None Dermatologic History: Reports: None - Infectious Disease History Infectious Disease History: Reports: Chicken Pox, Measles, Mumps, Shingles - Past Surgical History Head Surgeries/Procedures: Reports: None HEENT Surgical History: Reports: Oral Surgery Other HEENT Surgeries/Procedures: upper and lower dentures Cardiovascular Surgical History: Reports: Coronary Artery Bypass GI Surgical History: Reports: Hernia, Abdominal Neurological Surgical History: Reports: Lumbar Spine Social & Family History - Family History Family Medical History: No Pertinent Family History - Tobacco Use Tobacco Use Status *Q: Current Every Day Tobacco User Years of Tobacco use: 60 Packs/Tins Daily: 0.2 - Caffeine Use Caffeine Use: Reports: Soda - Recreational Drug Use Recreational Drug Use: No - Living Situation & Occupation Occupation: Retired H&P Review of Systems - Review of Systems: Review Of Systems: See Below Free Text/Narrative: Constitutional: Patient has any fevers, chills malaise or any weight loss. CVS: Denies any chest pain or any angina symptoms. He denies any orthopnea, PND or lower extremity edema Abdomen: Denies any nausea, vomiting, abdominal pain or diarrhea Genitourinary: Denies any dysuria, frequency, urgency or hematuria Neuro: Has any seizures, tremors or any focal weaknesses Psych: Denies having any hallucinations, suicidal ideations or feeling depressed Exam - Exam Exam: See Below - Vital Signs Vital Signs: Last Vital Signs Temp 98.9 F 08/08/21 10:56 Pulse 79 08/08/21 10:56 Resp 22 H 08/08/21 10:56 BP 130/77 08/08/21 10:56 Pulse Ox 100 08/08/21 10:56 Weight: 122 lb 12.8 oz - Exam Physical Exam Comments:: General: This is a thin elderly male. He is awake and alert. In no distress. Able to speak in full sentences. CVS: S1-S2 appreciated. III/ [place]. No rubs or gallops. Lungs: Diminished breath sounds bilaterally with expiratory wheezes L >R Abdomen: Soft, nontender. Bowel sounds are present Extremities: There is no clubbing, cyanosis or edema Neuro: Strength is 5 out of 5 bilaterally, sensation is intact, gait is normal Psych: Stable mood and affect - Patient Data Lab Results Last 24 hrs: Laboratory Results - last 24 hr 08/08/21 08/08/21 08/08/21 Range/Units 09:32 09:33 09:33 WBC 6.9 (5.0-10.0) 10^3/uL RBC 3.68 L (4.6-6.2) 10^6/uL Hgb 11.4 L (14.0-18.0) g/dL Hct 36.8 L (40.0-54.0) % MCV 100.0 (80-100) fL MCH 31.0 (27.0-34.0) pg MCHC 31.0 L (33.0-35.0) g/dL Plt Count 269 (150-450) 10^3/uL Neut % (Auto) 76.4 H (42.2-75.2) % Lymph % (Auto) 12.8 L (20.5-50.1) % [place] % (Auto) 7.5 (2-8) % Eos % (Auto) 2.7 (1.0-3.0) % Baso % (Auto) 0.6 (0.0-1.0) % Sodium 143 (136-145) mmol/L Potassium 3.9 (3.5-5.1) mmol/L Chloride 103 (98-107) mmol/L Carbon Dioxide 33 H (21-32) mmol/L Anion Gap 10.9 (7-13) mEq/L BUN 21 H (7-18) mg/dL Creatinine 0.98 (0.70-1.30) mg/dL Est Cr Clr Drug Dosing 54.79 mL/min Estimated GFR (MDRD) > 60 BUN/Creatinine Ratio 21.4 (No establ ref range) Glucose 107 H (70-99) mg/dL Lactic Acid (0.4-2.0) mmol/L Calcium 9.1 (8.5-10.1) mg/dL Total Bilirubin 0.3 (0.2-1.0) mg/dL AST 11 L (15-37) U/L ALT 11 L (16-63) U/L Alkaline Phosphatase 106 (46-116) U/L Troponin I High Sens 15 (<=76) pg/mL B-Natriuretic Peptide 81 (0-100) pg/ml Total Protein 6.4 (6.4-8.2) g/dL Albumin 3.4 (3.4-5.0) g/dL Globulin 3.0 Albumin/Globulin Ratio 1.1 Urine Color (YELLOW) Urine Appearance (CLEAR) Urine pH (5.0-9.0) Ur Specific [place] (1.005-1.030) Urine Protein (NEGATIVE) Urine Glucose (UA) (NEGATIVE) Urine Ketones (NEGATIVE) Urine Occult Blood (NEGATIVE) Urine Nitrite (NEGATIVE) Urine Bilirubin (NEGATIVE) Urine Urobilinogen (0.2-1.0) mg/dL Ur Leukocyte Esterase (NEGATIVE) Influenza Type A RNA Negative (NEGATIVE) Influenza Type B RNA Negative (NEGATIVE) SARS-CoV-2 RNA (EFREN) Negative (NEGATIVE) 08/08/21 08/08/21 Range/Units 09:33 10:46 WBC (5.0-10.0) 10^3/uL RBC (4.6-6.2) 10^6/uL Hgb (14.0-18.0) g/dL Hct (40.0-54.0) % MCV (80-100) fL MCH (27.0-34.0) pg MCHC (33.0-35.0) g/dL Plt Count (150-450) 10^3/uL Neut % (Auto) (42.2-75.2) % Lymph % (Auto) (20.5-50.1) % [place] % (Auto) (2-8) % Eos % (Auto) (1.0-3.0) % Baso % (Auto) (0.0-1.0) % Sodium (136-145) mmol/L Potassium (3.5-5.1) mmol/L Chloride (98-107) mmol/L Carbon Dioxide (21-32) mmol/L Anion Gap (7-13) mEq/L BUN (7-18) mg/dL Creatinine (0.70-1.30) mg/dL Est Cr Clr Drug Dosing mL/min Estimated GFR (MDRD) BUN/Creatinine Ratio (No establ ref range) Glucose (70-99) mg/dL Lactic Acid 1.1 (0.4-2.0) mmol/L Calcium (8.5-10.1) mg/dL Total Bilirubin (0.2-1.0) mg/dL AST (15-37) U/L ALT (16-63) U/L Alkaline Phosphatase (46-116) U/L Troponin I High Sens (<=76) pg/mL B-Natriuretic Peptide (0-100) pg/ml Total Protein (6.4-8.2) g/dL Albumin (3.4-5.0) g/dL Globulin Albumin/Globulin Ratio Urine Color Yellow (YELLOW) Urine Appearance Clear (CLEAR) Urine pH 7.0 (5.0-9.0) Ur Specific [place] 1.020 (1.005-1.030) Urine Protein Negative (NEGATIVE) Urine Glucose (UA) Negative (NEGATIVE) Urine Ketones Negative (NEGATIVE) Urine Occult Blood Negative (NEGATIVE) Urine Nitrite Negative (NEGATIVE) Urine Bilirubin Negative (NEGATIVE) Urine Urobilinogen 0.2 (0.2-1.0) mg/dL Ur Leukocyte Esterase Negative (NEGATIVE) Influenza Type A RNA (NEGATIVE) Influenza Type B RNA (NEGATIVE) SARS-CoV-2 RNA (EFREN) (NEGATIVE) Result Diagrams: 08/08/21 09:33 08/08/21 09:33 Carmelo Results Last 24 hrs: Microbiology 08/08/21 09:25 Anaerobic Blood Culture - Final Blood - Arm, Left - Problem List (1) T2DM (type 2 diabetes mellitus) SNOMED Code(s): 33285407 ICD Code: E11.9 - TYPE 2 DIABETES MELLITUS WITHOUT COMPLICATIONS Status: Acute Current Visit: Yes (2) COPD exacerbation SNOMED Code(s): 936804695 ICD Code: J44.1 - CHRONIC OBSTRUCTIVE PULMONARY DISEASE W (ACUTE) EXACERBATION Status: Acute Current Visit: No (3) Hyperlipidemia SNOMED Code(s): 94545940 ICD Code: E78.5 - HYPERLIPIDEMIA, UNSPECIFIED Status: Acute Current Visit: No Onset Date: 02/13/15 (4) Hypertension SNOMED Code(s): 28722413 ICD Code: I10 - ESSENTIAL (PRIMARY) HYPERTENSION Status: Acute Current Visit: No Onset Date: 02/13/15 (5) Tobacco abuse SNOMED Code(s): 375852749 ICD Code: Z72.0 - TOBACCO USE Status: Acute Current Visit: Yes Problem List Initiated/Reviewed/Updated: Yes Orders Last 24hrs: Active Orders 24 hr Category Date Time Status Admission Diagnosis [ADT] Stat ADT 08/08/21 10:39 Ordered Admission Status [Patient Status] [ADT] Routine ADT 08/08/21 10:39 Active Oxygen Therapy [RC] PRN Care 08/08/21 11:50 Active RT Aerosol Therapy [RC] ASDIRECTED Care 08/08/21 09:14 Active VTE/DVT Education [RC] PER UNIT ROUTINE Care 08/08/21 11:50 Active Vital Signs [RC] Q4H Care 08/08/21 11:50 Active Regular Diet [DIET] Diet 08/08/21 Lunch Active BASIC METABOLIC PANEL,BMP [CHEM] AM Lab 08/09/21 05:11 Ordered CULTURE BLOOD [BC] Stat Lab 08/08/21 09:25 Results CULTURE BLOOD [BC] Stat Lab 08/08/21 09:33 Received Docusate Sodium [Colace] Med 08/08/21 11:50 Active 100 mg PO BID PRN bisacodyL [Dulcolax] Med 08/08/21 11:50 Active 5 mg PO DAILY PRN oxyCODONE Med 08/08/21 11:50 Active 5 mg PO Q4H PRN Blood Culture x2 Reflex Set [OM.PC] Stat Oth 08/08/21 09:12 Ordered Peripheral IV Insertion Adult [OM.PC] Stat Oth 08/08/21 09:14 Ordered Resuscitation Status Routine Resus Stat 08/08/21 11:50 Ordered Medication Orders Bisacodyl (Bisacodyl 5 Mg Tab) 5 mg PO DAILY PRN PRN Reason: Constipation Docusate Sodium (Docusate Sodium 100 Mg Cap) 100 mg PO BID PRN PRN Reason: Constipation Oxycodone HCl (Oxycodone 5 Mg Tab) 5 mg PO Q4H PRN PRN Reason: Pain (moderate 4-6) Assessment/Plan Comment:: COPD exacerbation. Patient has a end-stage COPD. -Admit patient to the medical floor. Continue patient on parenteral steroids and nebulizers. I will add Levaquin orally. He will need several days in the hospital prior to being able to go home. Tobacco abuse -Over smoking cessation counseling Diabetes mellitus -Resume home medications. Blood sugar checks twice daily Hypertension -Stable. Continue home meds CAD status CABG -Stable. Patient on aspirin and statin at home. Hyperlipidemia -On statin Full CODE STATUS
[2021-08-08] MEDS ORDERED: Albuterol/Ipratropium 3.0-0.5 MG/3 ML Neb Soln NEB PRN (14:51)
[2021-08-08] MEDS ORDERED: Nitroglycerin 0.4 MG Tab.SL SL PRN (15:11)
[2021-08-08] MEDS ORDERED: Albuterol 6.7 GM Inhaler INH PRN (15:11)
[2021-08-08] MEDS ORDERED: Polyethylene Glycol 3350 Powder 17 GM Packet PO PRN (15:11)
[2021-08-08] MEDS ORDERED: Montelukast 10 MG Tab PO SCH (15:15)
[2021-08-08] MEDS ORDERED: Fluticasone Propionate Nasal Spray 16 GM Bottle NASBOTH SCH (15:15)
[2021-08-08] MEDS: Albuterol/Ipratropium 3.0-0.5 MG/3 ML Neb Soln NEB SCH ×3 (15:53→22:08)
[2021-08-08] MEDS: methylPREDNISolone Sodium Succinate 40 MG/1 ML SDV IVPUSH SCH (17:09)
[2021-08-08] MEDS ORDERED: diphenhydrAMINE 25 MG Tab PO PRN (19:49)
[2021-08-08] MEDS: LORazepam 0.5 MG Tab PO SCH (21:32)
[2021-08-08] MEDS: metFORMIN 500 MG Tab PO SCH (21:35)
[2021-08-08] MEDS: Aspirin 81 MG Tab.EC PO SCH (21:37)
[2021-08-08] MEDS: Gabapentin 300 MG Cap PO SCH (21:37)
[2021-08-08] MEDS: Topiramate 100 MG Tab PO SCH (21:38)
[2021-08-08] MEDS: Mirtazapine 15 MG Tab PO SCH (21:38)
[2021-08-08] MEDS: Budesonide 0.5 MG/2 ML Neb Susp NEB SCH (22:08)
[2021-08-09] MEDS: Albuterol/Ipratropium 3.0-0.5 MG/3 ML Neb Soln NEB SCH ×6 (02:39→22:03)
[2021-08-09] MEDS: methylPREDNISolone Sodium Succinate 40 MG/1 ML SDV IVPUSH SCH ×3 (06:08→22:05)
[2021-08-09] MEDS: Omeprazole 20 MG Cap.CR PO SCH ×2 (06:08→16:39)
[2021-08-09 06:47] LABS: ANION GAP 12.7 mEq/L (7-13); CHLORIDE,CL 103 mmol/L (98-107); SODIUM,NA 143 mmol/L (136-145)
[2021-08-09] MEDS: Budesonide 0.5 MG/2 ML Neb Susp NEB SCH ×2 (08:31→19:20)
[2021-08-09] MEDS ORDERED: Pantoprazole 40 MG Tab.CR PO SCH (09:00)
[2021-08-09] MEDS: Levofloxacin 250 MG Tab PO SCH (09:10)
[2021-08-09] MEDS: metFORMIN 500 MG Tab PO SCH ×2 (09:11→22:00)
[2021-08-09] MEDS ORDERED: 50% Dextrose in Water 50 ML Syringe IVPUSH PRN (12:07)
--- NOTE | 2021-08-09 12:17 | PCM.PN ---
- General Info Date of Service: 08/09/21 Subjective Update: continues to have moderate SOB symptoms present for days no improvement since admission associated with cough, no fever no cp Functional Status: Reports: Pain Controlled, Tolerating Diet - Review of Systems General: Reports: Weakness. Denies: Fever Pulmonary: Reports: Shortness of Breath, Cough Cardiovascular: Denies: Chest Pain, Edema Neurological: Denies: Confusion - Patient Data Vitals - Most Recent: Last Vital Signs Temp 97.3 F 08/09/21 10:48 Pulse 89 08/09/21 10:48 Resp 18 08/09/21 10:48 BP 125/58 L 08/09/21 10:48 Pulse Ox 96 08/09/21 11:18 Weight - Most Recent: 122 lb 12.8 oz I&O - Last 24 Hours: Intake & Output 08/08/21 08/09/21 08/09/21 22:59 06:59 14:59 Intake Total 150 240 Output Total 500 Balance -350 240 Lab Results Last 24 Hours: Laboratory Results - last 24 hr 08/08/21 08/09/21 Range/Units 21:35 06:16 Sodium 143 (136-145) mmol/L Potassium 4.7 (3.5-5.1) mmol/L Chloride 103 (98-107) mmol/L Carbon Dioxide 32 (21-32) mmol/L Anion Gap 12.7 (7-13) mEq/L BUN 20 H (7-18) mg/dL Creatinine 1.01 (0.70-1.30) mg/dL Est Cr Clr Drug Dosing 51.32 mL/min Estimated GFR (MDRD) > 60 Glucose 96 (70-99) mg/dL POC Glucose 271 H (70-99) mg/dL Calcium 9.5 (8.5-10.1) mg/dL Carmelo Results Last 24 Hours: Microbiology 08/08/21 09:25 Aerobic Blood Culture - Preliminary Blood - Arm, Left NO GROWTH AFTER 1 DAY Anaerobic Blood Culture - Final 08/08/21 09:33 Aerobic Blood Culture - Preliminary Blood - Arm, Right NO GROWTH AFTER 1 DAY Anaerobic Blood Culture - Preliminary NO GROWTH AFTER 1 DAY Med Orders - Current: Current Medications Albuterol (Albuterol 6.7 Gm Inhaler) 0 gm INH Q6H PRN PRN Reason: Dyspnea Albuterol/Ipratropium (Albuterol/Ipratropium 3.0-0.5 Mg/3 Ml Neb Soln) 3 ml NEB Q2H PRN PRN Reason: Dyspnea Albuterol/Ipratropium (Albuterol/Ipratropium 3.0-0.5 Mg/3 Ml Neb Soln) 3 ml NEB Q4HRRT [facility] Last Admin: 08/09/21 08:30 Dose: 3 ml Documented by: Aspirin (Aspirin 81 Mg Tab.Ec) 81 mg PO BEDTIME [facility] Last Admin: 08/08/21 21:37 Dose: 81 mg Documented by: Bisacodyl (Bisacodyl 5 Mg Tab) 5 mg PO DAILY PRN PRN Reason: Constipation Budesonide (Budesonide 0.5 Mg/2 Ml Neb Susp) 0.5 mg NEB BIDRT [facility] Last Admin: 08/09/21 08:31 Dose: 0.5 mg Documented by: Dextrose/Water (50% Dextrose In Water 50 Ml Syringe) 25 ml IVPUSH ASDIRECTED PRN PRN Reason: Hypoglycemia BS<70 Diphenhydramine HCl (Diphenhydramine 25 Mg Tab) 25 mg PO BEDTIME PRN PRN Reason: Allergies Docusate Sodium (Docusate Sodium 100 Mg Cap) 100 mg PO BID PRN PRN Reason: Constipation Formoterol Fumarate (Formoterol 20 Mcg/2 Ml Neb) 20 mcg INH BIDRT [facility] Last Admin: 08/09/21 08:31 Dose: Not Given Documented by: Gabapentin (Gabapentin 300 Mg Cap) 300 mg PO BEDTIME [facility] Last Admin: 08/08/21 21:37 Dose: 300 mg Documented by: Insulin Human Lispro (Insulin Lispro 100 Units/Ml 3 Ml Vial) 0 unit SUBCUT WITHMEALSANDBED [facility]; Protocol Levofloxacin (Levofloxacin 250 Mg Tab) 750 mg PO Q24H [facility] Stop: 08/13/21 09:01 Last Admin: 08/09/21 09:10 Dose: 750 mg Documented by: Lorazepam (Lorazepam 0.5 Mg Tab) 0.25 mg PO BEDTIME [facility] Last Admin: 08/08/21 21:32 Dose: 0.25 mg Documented by: Metformin HCl (Metformin 500 Mg Tab) 1,000 mg PO BID [facility] Last Admin: 08/09/21 09:11 Dose: 1,000 mg Documented by: Methylprednisolone Sodium Succinate (Methylprednisolone Sodium Succinate 40 Mg/1 Ml Sdv) 80 mg IVPUSH Q8HR [facility] Last Admin: 08/09/21 06:08 Dose: 80 mg Documented by: Mirtazapine (Mirtazapine 15 Mg Tab) 7.5 mg PO BEDTIME [facility] Last Admin: 08/08/21 21:38 Dose: 7.5 mg Documented by: Nitroglycerin (Nitroglycerin 0.4 Mg Tab.Sl) 0.4 mg SL ASDIRECTED PRN PRN Reason: Chest Pain Omeprazole (Omeprazole 20 Mg Cap.Cr) 20 mg PO BIDAC [facility] Last Admin: 08/09/21 06:08 Dose: 20 mg Documented by: Oxycodone HCl (Oxycodone 5 Mg Tab) 5 mg PO Q4H PRN PRN Reason: Pain (moderate 4-6) Polyethylene Glycol (Polyethylene Glycol 3350 Powder 17 Gm Packet) 17 gm PO DAILY PRN PRN Reason: Constipation Senna/Docusate Sodium (Docusate Sodium/Sennosides 50-8.6 Mg Tab) 2 tab PO BID [facility] Last Admin: 08/09/21 09:11 Dose: 2 tab Documented by: Topiramate (Topiramate 100 Mg Tab) 200 mg PO BEDTIME [facility] Last Admin: 08/08/21 21:38 Dose: 200 mg Documented by: Discontinued Medications Albuterol/Ipratropium (Albuterol/Ipratropium 3.0-0.5 Mg/3 Ml Neb Soln) 3 ml NEB ONETIME ONE Stop: 08/08/21 09:15 Last Admin: 08/08/21 09:37 Dose: 3 ml Documented by: Levofloxacin/Dextrose 500 mg/ (Premix) 100 mls @ 100 mls/hr IV ONETIME ONE Stop: 08/08/21 10:14 Last Admin: 08/08/21 09:47 Dose: 100 mls/hr Documented by: Methylprednisolone Sodium Succinate (Methylprednisolone Sodium Succinate 125 Mg/2 Ml Sdv) 125 mg IVPUSH ONETIME ONE Stop: 08/08/21 09:15 Last Admin: 08/08/21 09:54 Dose: 125 mg Documented by: Sodium Chloride (Sodium Chloride 0.9% 10 Ml Syringe) 10 ml FLUSH ASDIRECTED PRN PRN Reason: Keep Vein Open Last Admin: 08/08/21 09:57 Dose: 10 ml Documented by: - Exam Quality Assessment: Supplemental Oxygen General: Alert, Oriented Neck: Supple Lungs: Decreased Breath Sounds, Rhonchi, Wheezing Cardiovascular: Regular Rate, Regular Rhythm GI/Abdominal Exam: Normal Bowel Sounds, Soft, Non-Tender Extremities: No Pedal Edema - Patient Data Lab Results Last 24 hrs: Laboratory Results - last 24 hr 08/08/21 08/09/21 Range/Units 21:35 06:16 Sodium 143 (136-145) mmol/L Potassium 4.7 (3.5-5.1) mmol/L Chloride 103 (98-107) mmol/L Carbon Dioxide 32 (21-32) mmol/L Anion Gap 12.7 (7-13) mEq/L BUN 20 H (7-18) mg/dL Creatinine 1.01 (0.70-1.30) mg/dL Est Cr Clr Drug Dosing 51.32 mL/min Estimated GFR (MDRD) > 60 Glucose 96 (70-99) mg/dL POC Glucose 271 H (70-99) mg/dL Calcium 9.5 (8.5-10.1) mg/dL Result Diagrams: 08/08/21 09:33 08/09/21 06:16 Carmelo Results Last 24 hrs: Microbiology 08/08/21 09:25 Aerobic Blood Culture - Preliminary Blood - Arm, Left NO GROWTH AFTER 1 DAY Anaerobic Blood Culture - Final 08/08/21 09:33 Aerobic Blood Culture - Preliminary Blood - Arm, Right NO GROWTH AFTER 1 DAY Anaerobic Blood Culture - Preliminary NO GROWTH AFTER 1 DAY Sepsis Event Note - Evaluation Sepsis Screening Result: No Definite Risk - Focused Exam Vital Signs: Vital Signs Temp Pulse Resp BP BP Pulse Ox Pulse Ox 08/09/21 11:18 96 08/09/21 10:48 97.3 F 89 18 125/58 L 99 08/09/21 05:00 97.6 F 82 20 113/65 97 08/09/21 02:00 97.0 F 78 18 122/69 100 - Problem List & Annotations (1) T2DM (type 2 diabetes mellitus) SNOMED Code(s): 60896627 Code(s): E11.9 - TYPE 2 DIABETES MELLITUS WITHOUT COMPLICATIONS Status: Acute Current Visit: Yes (2) Acute on chronic respiratory failure SNOMED Code(s): 36410491 Code(s): J96.20 - ACUTE AND CHR RESP FAILURE, UNSP W HYPOXIA OR HYPERCAPNIA Status: Acute Current Visit: No Qualifiers: Respiratory failure complication: unspecified whether with hypoxia or hypercapnia Qualified Code(s): J96.20 - Acute and chronic respiratory failure, unspecified whether with hypoxia or hypercapnia (3) COPD exacerbation SNOMED Code(s): 634712728 Code(s): J44.1 - CHRONIC OBSTRUCTIVE PULMONARY DISEASE W (ACUTE) EXACERBATION Status: Acute Current Visit: No (4) Hypertension SNOMED Code(s): 77697192 Code(s): I10 - ESSENTIAL (PRIMARY) HYPERTENSION Status: Acute Current Visit: No Onset Date: 02/13/15 - Problem List Review Problem List Initiated/Reviewed/Updated: Yes - My Orders Last 24 Hours: My Active Orders 08/08/21 19:49 diphenhydrAMINE [Benadryl] 25 mg PO BEDTIME PRN 08/08/21 19:50 RT Aerosol Therapy [RC] ASDIRECTED 08/08/21 21:00 Budesonide [Pulmicort] 0.5 mg NEB BIDRT Formoterol [Perforomist] 20 mcg INH BIDRT LORazepam [Ativan] 0.25 mg PO BEDTIME 08/09/21 06:00 Omeprazole 20 mg PO BIDAC 08/09/21 12:07 Blood Glucose Check, Bedside [RC] WITHMEALSANDBED Dextrose 50% in Water 25 ml IVPUSH ASDIRECTED PRN 08/09/21 12:08 Activity as Tolerated [RC] .Routine 08/09/21 18:00 Insulin Lispro [HumaLOG] See Protocol SUBCUT WITHMEALSANDBED - Plan Plan:: h/o copd , chronic hypoxemic respiratory failure with 4 l/min nc home oxygen COPD exacerbation. Patient has a end-stage COPD. treat with IV solumedrol itreat with nhaled steroid cont Levaquin orally. He will need several days in the hospital prior to being able to go home. Tobacco abuse -Over smoking cessation counseling Diabetes mellitus -treat with metformin follow BS treat with supplemental insulin and hypoglycemia protocol as needed CAD status CABG -Stable. continue on aspirin and statin Hyperlipidemia -On statin Full CODE STATUS
[2021-08-09] MEDS: Insulin Lispro 100 Units/ML 3 ML Vial SUBCUT SCH ×2 (17:28→22:14)
[2021-08-09] MEDS: LORazepam 0.5 MG Tab PO SCH (20:34)
[2021-08-09] MEDS: Mirtazapine 15 MG Tab PO SCH (21:51)
[2021-08-09] MEDS: Gabapentin 300 MG Cap PO SCH (21:52)
[2021-08-09] MEDS: Topiramate 100 MG Tab PO SCH (21:53)
[2021-08-09] MEDS: Aspirin 81 MG Tab.EC PO SCH (21:53)
[2021-08-10] MEDS: Albuterol/Ipratropium 3.0-0.5 MG/3 ML Neb Soln NEB SCH ×4 (03:10→20:54)
[2021-08-10] MEDS: methylPREDNISolone Sodium Succinate 40 MG/1 ML SDV IVPUSH SCH ×2 (06:13→14:29)
[2021-08-10] MEDS: Omeprazole 20 MG Cap.CR PO SCH ×2 (06:13→16:37)
[2021-08-10 06:50] LABS: ANION GAP 15.6 mEq/L (7-13); CHLORIDE,CL 103 mmol/L (98-107); SODIUM,NA 142 mmol/L (136-145)
[2021-08-10] MEDS: Insulin Lispro 100 Units/ML 3 ML Vial SUBCUT SCH ×4 (08:39→22:10)
[2021-08-10] MEDS: Levofloxacin 250 MG Tab PO SCH (09:10)
[2021-08-10] MEDS: metFORMIN 500 MG Tab PO SCH ×2 (09:10→20:54)
--- NOTE | 2021-08-10 10:40 | PCM.PN ---
- General Info Date of Service: 08/10/21 Admission Dx/Problem (Free Text): Admission Diagnosis/Problem Admission Diagnosis/Problem COPD, Moderate chronic obstructive pulmonary disease Mr. Metzger is a 68-year-old male with history of end-stage COPD and tobacco abuse who presents to the ED with complaints of worsening dyspnea for the past several days. Patient states he been short of breath for the past couple of months however his symptoms have gotten worse over the past 24-48 hours despite using his home nebulizers and albuterol inhalor. He had an appointment with the PCP regarding the COPD flare few days ago and was told that he might be developing a pneumonia. He continues to smoke at least 2 cigarettes a day. He is on chronic prednisone therapy for his end stage COPD. He has a history of exposure to a lot of respiratory toxins during his time as a young man. He says he was exposed to agent orange while in [place], later on he worked at a [employer]. 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 Subjective Update: continues to have moderate SOB symptoms present for days mild improvement since admission associated with cough, no fever no cp has remained on 4 l/min nc oxygen Functional Status: Reports: Pain Controlled, Tolerating Diet - Review of Systems General: Denies: Fever Pulmonary: Reports: Shortness of Breath, Cough, Wheezing Cardiovascular: Denies: Chest Pain, Edema Genitourinary: Denies: Dysuria Psychiatric: Denies: Confusion - Patient Data Vitals - Most Recent: Last Vital Signs Temp 97.8 F 08/10/21 08:15 Pulse 89 08/10/21 08:15 Resp 20 08/10/21 08:15 BP 133/75 08/10/21 08:15 Pulse Ox 100 08/10/21 08:15 Weight - Most Recent: 122 lb 12.8 oz I&O - Last 24 Hours: Intake & Output 08/09/21 08/10/21 08/10/21 22:59 06:59 14:59 Intake Total 610 Balance 610 Lab Results Last 24 Hours: Laboratory Results - last 24 hr 08/09/21 08/09/21 08/10/21 Range/Units 17:16 20:13 05:50 WBC 11.0 H (5.0-10.0) 10^3/uL RBC 3.53 L (4.6-6.2) 10^6/uL Hgb 10.7 L (14.0-18.0) g/dL Hct 35.0 L (40.0-54.0) % MCV 99.2 (80-100) fL MCH 30.3 (27.0-34.0) pg MCHC 30.6 L (33.0-35.0) g/dL Plt Count 242 (150-450) 10^3/uL Neut % (Auto) 91.4 H (42.2-75.2) % Lymph % (Auto) 3.7 L (20.5-50.1) % [place] % (Auto) 4.7 (2-8) % Eos % (Auto) 0.0 L (1.0-3.0) % Baso % (Auto) 0.2 (0.0-1.0) % Sodium (136-145) mmol/L Potassium (3.5-5.1) mmol/L Chloride (98-107) mmol/L Carbon Dioxide (21-32) mmol/L Anion Gap (7-13) mEq/L BUN (7-18) mg/dL Creatinine (0.70-1.30) mg/dL Est Cr Clr Drug Dosing mL/min Estimated GFR (MDRD) Glucose (70-99) mg/dL POC Glucose 142 H 141 H (70-99) mg/dL Calcium (8.5-10.1) mg/dL 08/10/21 08/10/21 Range/Units 05:50 08:01 WBC (5.0-10.0) 10^3/uL RBC (4.6-6.2) 10^6/uL Hgb (14.0-18.0) g/dL Hct (40.0-54.0) % MCV (80-100) fL MCH (27.0-34.0) pg MCHC (33.0-35.0) g/dL Plt Count (150-450) 10^3/uL Neut % (Auto) (42.2-75.2) % Lymph % (Auto) (20.5-50.1) % [place] % (Auto) (2-8) % Eos % (Auto) (1.0-3.0) % Baso % (Auto) (0.0-1.0) % Sodium 142 (136-145) mmol/L Potassium 4.6 (3.5-5.1) mmol/L Chloride 103 (98-107) mmol/L Carbon Dioxide 28 (21-32) mmol/L Anion Gap 15.6 H (7-13) mEq/L BUN 23 H (7-18) mg/dL Creatinine 1.11 (0.70-1.30) mg/dL Est Cr Clr Drug Dosing 46.70 mL/min Estimated GFR (MDRD) > 60 Glucose 116 H (70-99) mg/dL POC Glucose 108 H (70-99) mg/dL Calcium 9.2 (8.5-10.1) mg/dL Carmelo Results Last 24 Hours: Microbiology 08/08/21 09:25 Aerobic Blood Culture - Preliminary Blood - Arm, Left NO GROWTH AFTER 2 DAYS Anaerobic Blood Culture - Final 08/08/21 09:33 Aerobic Blood Culture - Preliminary Blood - Arm, Right NO GROWTH AFTER 2 DAYS Anaerobic Blood Culture - Preliminary NO GROWTH AFTER 2 DAYS Med Orders - Current: Current Medications Albuterol/Ipratropium (Albuterol/Ipratropium 3.0-0.5 Mg/3 Ml Neb Soln) 3 ml NEB Q2H PRN PRN Reason: Dyspnea Aspirin (Aspirin 81 Mg Tab.Ec) 81 mg PO BEDTIME [facility] Last Admin: 08/09/21 21:53 Dose: 81 mg Documented by: Bisacodyl (Bisacodyl 5 Mg Tab) 5 mg PO DAILY PRN PRN Reason: Constipation Budesonide (Budesonide 0.5 Mg/2 Ml Neb Susp) 0.5 mg NEB BIDRT [facility] Last Admin: 08/09/21 19:20 Dose: 0.5 mg Documented by: Dextrose/Water (50% Dextrose In Water 50 Ml Syringe) 25 ml IVPUSH ASDIRECTED PRN PRN Reason: Hypoglycemia BS<70 Diphenhydramine HCl (Diphenhydramine 25 Mg Tab) 25 mg PO BEDTIME PRN PRN Reason: Allergies Docusate Sodium (Docusate Sodium 100 Mg Cap) 100 mg PO BID PRN PRN Reason: Constipation Gabapentin (Gabapentin 300 Mg Cap) 300 mg PO BEDTIME [facility] Last Admin: 08/09/21 21:52 Dose: 300 mg Documented by: Insulin Human Lispro (Insulin Lispro 100 Units/Ml 3 Ml Vial) 0 unit SUBCUT WITHMEALSANDBED [facility]; Protocol Last Admin: 08/10/21 08:39 Dose: Not Given Documented by: Levofloxacin (Levofloxacin 250 Mg Tab) 750 mg PO Q24H [facility] Stop: 08/13/21 09:01 Last Admin: 08/10/21 09:10 Dose: 750 mg Documented by: Lorazepam (Lorazepam 0.5 Mg Tab) 0.25 mg PO BEDTIME [facility] Last Admin: 08/09/21 20:34 Dose: 0.25 mg Documented by: Metformin HCl (Metformin 500 Mg Tab) 1,000 mg PO BID [facility] Last Admin: 08/10/21 09:10 Dose: 1,000 mg Documented by: Methylprednisolone Sodium Succinate (Methylprednisolone Sodium Succinate 40 Mg/1 Ml Sdv) 40 mg IVPUSH Q8HR [facility] Last Admin: 08/10/21 06:13 Dose: 40 mg Documented by: Mirtazapine (Mirtazapine 15 Mg Tab) 7.5 mg PO BEDTIME [facility] Last Admin: 08/09/21 21:51 Dose: 7.5 mg Documented by: Nitroglycerin (Nitroglycerin 0.4 Mg Tab.Sl) 0.4 mg SL ASDIRECTED PRN PRN Reason: Chest Pain Omeprazole (Omeprazole 20 Mg Cap.Cr) 20 mg PO BIDAC [facility] Last Admin: 08/10/21 06:13 Dose: 20 mg Documented by: Oxycodone HCl (Oxycodone 5 Mg Tab) 5 mg PO Q4H PRN PRN Reason: Pain (moderate 4-6) Polyethylene Glycol (Polyethylene Glycol 3350 Powder 17 Gm Packet) 17 gm PO HARJIT LY PRN PRN Reason: Constipation Rosuvastatin Calcium (Rosuvastatin 10 Mg Tab) 2.5 mg PO MoWeFr@0900 [facility] Senna/Docusate Sodium (Docusate Sodium/Sennosides 50-8.6 Mg Tab) 2 tab PO BID [facility] Last Admin: 08/10/21 09:11 Dose: 2 tab Documented by: Topiramate (Topiramate 100 Mg Tab) 200 mg PO BEDTIME [facility] Last Admin: 08/09/21 21:53 Dose: 200 mg Documented by: Discontinued Medications Albuterol (Albuterol 6.7 Gm Inhaler) 0 gm INH Q6H PRN PRN Reason: Dyspnea Albuterol/Ipratropium (Albuterol/Ipratropium 3.0-0.5 Mg/3 Ml Neb Soln) 3 ml NEB ONETIME ONE Stop: 08/08/21 09:15 Last Admin: 08/08/21 09:37 Dose: 3 ml Documented by: Albuterol/Ipratropium (Albuterol/Ipratropium 3.0-0.5 Mg/3 Ml Neb Soln) 3 ml NEB Q4HRRT [facility] Last Admin: 08/10/21 03:10 Dose: 3 ml Documented by: Formoterol Fumarate (Formoterol 20 Mcg/2 Ml Neb) 20 mcg INH BIDRT [facility] Last Admin: 08/09/21 19:19 Dose: Not Given Documented by: Levofloxacin/Dextrose 500 mg/ (Premix) 100 mls @ 100 mls/hr IV ONETIME ONE Stop: 08/08/21 10:14 Last Admin: 08/08/21 09:47 Dose: 100 mls/hr Documented by: Methylprednisolone Sodium Succinate (Methylprednisolone Sodium Succinate 125 Mg/2 Ml Sdv) 125 mg IVPUSH ONETIME ONE Stop: 08/08/21 09:15 Last Admin: 08/08/21 09:54 Dose: 125 mg Documented by: Methylprednisolone Sodium Succinate (Methylprednisolone Sodium Succinate 40 Mg/1 Ml Sdv) 80 mg IVPUSH Q8HR [facility] Last Admin: 08/09/21 06:08 Dose: 80 mg Documented by: Sodium Chloride (Sodium Chloride 0.9% 10 Ml Syringe) 10 ml FLUSH ASDIRECTED PRN PRN Reason: Keep Vein Open Last Admin: 08/08/21 09:57 Dose: 10 ml Documented by: - Exam General: Alert, Oriented Lungs: Rhonchi, Wheezing Cardiovascular: Regular Rate, Regular Rhythm GI/Abdominal Exam: Normal Bowel Sounds, Soft, Non-Tender Extremities: No Pedal Edema Skin: Warm, Dry Neurological: No New Focal Deficit - Patient Data Lab Results Last 24 hrs: Laboratory Results - last 24 hr 08/09/21 08/09/21 08/10/21 Range/Units 17:16 20:13 05:50 WBC 11.0 H (5.0-10.0) 10^3/uL RBC 3.53 L (4.6-6.2) 10^6/uL Hgb 10.7 L (14.0-18.0) g/dL Hct 35.0 L (40.0-54.0) % MCV 99.2 (80-100) fL MCH 30.3 (27.0-34.0) pg MCHC 30.6 L (33.0-35.0) g/dL Plt Count 242 (150-450) 10^3/uL Neut % (Auto) 91.4 H (42.2-75.2) % Lymph % (Auto) 3.7 L (20.5-50.1) % [place] % (Auto) 4.7 (2-8) % Eos % (Auto) 0.0 L (1.0-3.0) % Baso % (Auto) 0.2 (0.0-1.0) % Sodium (136-145) mmol/L Potassium (3.5-5.1) mmol/L Chloride (98-107) mmol/L Carbon Dioxide (21-32) mmol/L Anion Gap (7-13) mEq/L BUN (7-18) mg/dL Creatinine (0.70-1.30) mg/dL Est Cr Clr Drug Dosing mL/min Estimated GFR (MDRD) Glucose (70-99) mg/dL POC Glucose 142 H 141 H (70-99) mg/dL Calcium (8.5-10.1) mg/dL 08/10/21 08/10/21 Range/Units 05:50 08:01 WBC (5.0-10.0) 10^3/uL RBC (4.6-6.2) 10^6/uL Hgb (14.0-18.0) g/dL Hct (40.0-54.0) % MCV (80-100) fL MCH (27.0-34.0) pg MCHC (33.0-35.0) g/dL Plt Count (150-450) 10^3/uL Neut % (Auto) (42.2-75.2) % Lymph % (Auto) (20.5-50.1) % [place] % (Auto) (2-8) % Eos % (Auto) (1.0-3.0) % Baso % (Auto) (0.0-1.0) % Sodium 142 (136-145) mmol/L Potassium 4.6 (3.5-5.1) mmol/L Chloride 103 (98-107) mmol/L Carbon Dioxide 28 (21-32) mmol/L Anion Gap 15.6 H (7-13) mEq/L BUN 23 H (7-18) mg/dL Creatinine 1.11 (0.70-1.30) mg/dL Est Cr Clr Drug Dosing 46.70 mL/min Estimated GFR (MDRD) > 60 Glucose 116 H (70-99) mg/dL POC Glucose 108 H (70-99) mg/dL Calcium 9.2 (8.5-10.1) mg/dL Result Diagrams: 08/10/21 05:50 08/10/21 05:50 Carmelo Results Last 24 hrs: Microbiology 08/08/21 09:25 Aerobic Blood Culture - Preliminary Blood - Arm, Left NO GROWTH AFTER 2 DAYS Anaerobic Blood Culture - Final 08/08/21 09:33 Aerobic Blood Culture - Preliminary Blood - Arm, Right NO GROWTH AFTER 2 DAYS Anaerobic Blood Culture - Preliminary NO GROWTH AFTER 2 DAYS Sepsis Event Note - Evaluation Sepsis Screening Result: No Definite Risk - Focused Exam Vital Signs: Vital Signs Temp Pulse Resp BP Pulse Ox Pulse Ox 08/10/21 08:15 97.8 F 89 20 133/75 100 08/10/21 04:00 97.5 F 87 18 123/69 100 08/10/21 03:30 100 08/10/21 00:00 97.3 F 92 18 118/70 98 - Problem List & Annotations (1) T2DM (type 2 diabetes mellitus) SNOMED Code(s): 71781088 Code(s): E11.9 - TYPE 2 DIABETES MELLITUS WITHOUT COMPLICATIONS Status: Acute Current Visit: Yes (2) Acute on chronic respiratory failure SNOMED Code(s): 71257059 Code(s): J96.20 - ACUTE AND CHR RESP FAILURE, UNSP W HYPOXIA OR HYPERCAPNIA Status: Acute Current Visit: No Qualifiers: Respiratory failure complication: unspecified whether with hypoxia or hypercapnia Qualified Code(s): J96.20 - Acute and chronic respiratory failure, unspecified whether with hypoxia or hypercapnia (3) COPD exacerbation SNOMED Code(s): 422026946 Code(s): J44.1 - CHRONIC OBSTRUCTIVE PULMONARY DISEASE W (ACUTE) EXACERBATION Status: Acute Current Visit: No (4) Hypertension SNOMED Code(s): 35597403 Code(s): I10 - ESSENTIAL (PRIMARY) HYPERTENSION Status: Acute Current Visit: No Onset Date: 02/13/15 - Problem List Review Problem List Initiated/Reviewed/Updated: Yes - My Orders Last 24 Hours: My Active Orders 08/09/21 12:07 Blood Glucose Check, Bedside [RC] WITHMEALSANDBED Dextrose 50% in Water 25 ml IVPUSH ASDIRECTED PRN 08/09/21 12:08 Activity as Tolerated [RC] .Routine 08/09/21 14:00 methylPREDNISolone Sod Succ [Solu-MEDROL] 40 mg IVPUSH Q8HR 08/09/21 18:00 Insulin Lispro [HumaLOG] See Protocol SUBCUT WITHMEALSANDBED 08/10/21 13:00 Albuterol/Ipratropium [DuoNeb 3.0-0.5 MG/3 ML] 3 ml NEB QID 08/11/21 05:15 BASIC METABOLIC PANEL,BMP [CHEM] AM CBC WITH AUTO DIFF [HEME] AM 08/11/21 09:00 Rosuvastatin [Crestor] 2.5 mg PO MoWeFr@0900 - Plan Plan:: h/o copd , chronic hypoxemic respiratory failure with 4 l/min nc home oxygen COPD exacerbation. Patient has a end-stage COPD. treat with IV solumedrol treat with pulmicort BID, duone qid + prn cont Levaquin orally. He will need several days in the hospital prior to being able to go home. Tobacco abuse -Over smoking cessation counseling Diabetes mellitus -treat with metformin follow BS treat with supplemental insulin and hypoglycemia protocol as needed CAD status CABG -Stable. continue on aspirin and statin Hyperlipidemia -On statin Full CODE STATUS
[2021-08-10] MEDS: Budesonide 0.5 MG/2 ML Neb Susp NEB SCH ×3 (11:43→20:00)
[2021-08-10] MEDS: Lactulose Soln 10 GM/15 ML 30 ML UD Cup PO SCH ×2 (12:58→17:37)
[2021-08-10] MEDS: Topiramate 100 MG Tab PO SCH (20:52)
[2021-08-10] MEDS: Gabapentin 300 MG Cap PO SCH (20:52)
[2021-08-10] MEDS: LORazepam 0.5 MG Tab PO SCH (20:53)
[2021-08-10] MEDS: Mirtazapine 15 MG Tab PO SCH (20:53)
[2021-08-10] MEDS: Aspirin 81 MG Tab.EC PO SCH (20:53)
[2021-08-11] MEDS: methylPREDNISolone Sodium Succinate 40 MG/1 ML SDV IVPUSH SCH ×3 (00:23→21:22)
[2021-08-11] MEDS: Omeprazole 20 MG Cap.CR PO SCH ×2 (05:33→16:20)
[2021-08-11 07:10] LABS: ANION GAP 13.7 mEq/L (7-13); CHLORIDE,CL 102 mmol/L (98-107); SODIUM,NA 140 mmol/L (136-145)
[2021-08-11] MEDS: Albuterol/Ipratropium 3.0-0.5 MG/3 ML Neb Soln NEB SCH ×5 (07:36→21:19)
[2021-08-11] MEDS: Budesonide 0.5 MG/2 ML Neb Susp NEB SCH ×2 (07:37→18:50)
[2021-08-11] MEDS: Insulin Lispro 100 Units/ML 3 ML Vial SUBCUT SCH ×4 (08:41→21:20)
[2021-08-11] MEDS: Polyethylene Glycol 3350 Powder 17 GM Packet PO SCH (08:56)
[2021-08-11] MEDS: Levofloxacin 250 MG Tab PO SCH (08:57)
[2021-08-11] MEDS: metFORMIN 500 MG Tab PO SCH ×2 (08:58→21:16)
[2021-08-11] MEDS ORDERED: Rosuvastatin 10 MG Tab PO SCH (09:00)
--- NOTE | 2021-08-11 13:37 | PCM.PN ---
- General Info Date of Service: 08/11/21 Admission Dx/Problem (Free Text): Admission Diagnosis/Problem Admission Diagnosis/Problem COPD, Moderate chronic obstructive pulmonary disease Mr. Metzger is a 68-year-old male with history of end-stage COPD and tobacco abuse who presents to the ED with complaints of worsening dyspnea for the past several days. Patient states he been short of breath for the past couple of months however his symptoms have gotten worse over the past 24-48 hours despite using his home nebulizers and albuterol inhalor. He had an appointment with the PCP regarding the COPD flare few days ago and was told that he might be developing a pneumonia. He continues to smoke at least 2 cigarettes a day. He is on chronic prednisone therapy for his end stage COPD. He has a history of exposure to a lot of respiratory toxins during his time as a young man. He says he was exposed to agent orange while in [place], later on he worked at a [employer]. 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 Subjective Update: continues to have moderate SOB symptoms present for days mild improvement since admission - he says he is getting close to his baseline associated with cough, no fever no cp has remained on 4 l/min nc oxygen - that is his baseline Functional Status: Reports: Pain Controlled - Review of Systems General: Reports: Weakness. Denies: Fever Pulmonary: Reports: Shortness of Breath. Denies: Hemoptysis Gastrointestinal: Denies: Abdominal Pain Genitourinary: Denies: Hematuria Psychiatric: Denies: Confusion - Patient Data Vitals - Most Recent: Last Vital Signs Temp 98.2 F 08/11/21 12:00 Pulse 94 08/11/21 12:00 Resp 16 08/11/21 12:00 BP 125/68 08/11/21 12:00 Pulse Ox 99 08/11/21 12:00 Weight - Most Recent: 122 lb 12.8 oz I&O - Last 24 Hours: Intake & Output 08/10/21 08/11/21 08/11/21 22:59 06:59 14:59 Intake Total 200 420 Balance 200 420 Lab Results Last 24 Hours: Laboratory Results - last 24 hr 08/10/21 08/10/21 08/11/21 Range/Units 16:21 20:18 05:20 WBC 14.6 H (5.0-10.0) 10^3/uL RBC 3.72 L (4.6-6.2) 10^6/uL Hgb 11.4 L (14.0-18.0) g/dL Hct 37.3 L (40.0-54.0) % MCV 100.3 H (80-100) fL MCH 30.6 (27.0-34.0) pg MCHC 30.6 L (33.0-35.0) g/dL Plt Count 275 (150-450) 10^3/uL Neut % (Auto) 94.4 H (42.2-75.2) % Lymph % (Auto) 2.7 L (20.5-50.1) % Harvey % (Auto) 2.8 (2-8) % Eos % (Auto) 0.0 L (1.0-3.0) % Baso % (Auto) 0.1 (0.0-1.0) % Sodium (136-145) mmol/L Potassium (3.5-5.1) mmol/L Chloride (98-107) mmol/L Carbon Dioxide (21-32) mmol/L Anion Gap (7-13) mEq/L BUN (7-18) mg/dL Creatinine (0.70-1.30) mg/dL Est Cr Clr Drug Dosing mL/min Estimated GFR (MDRD) Glucose (70-99) mg/dL POC Glucose 99 117 H (70-99) mg/dL Calcium (8.5-10.1) mg/dL 08/11/21 08/11/21 08/11/21 Range/Units 05:20 07:59 11:55 WBC (5.0-10.0) 10^3/uL RBC (4.6-6.2) 10^6/uL Hgb (14.0-18.0) g/dL Hct (40.0-54.0) % MCV (80-100) fL MCH (27.0-34.0) pg MCHC (33.0-35.0) g/dL Plt Count (150-450) 10^3/uL Neut % (Auto) (42.2-75.2) % Lymph % (Auto) (20.5-50.1) % Harvey % (Auto) (2-8) % Eos % (Auto) (1.0-3.0) % Baso % (Auto) (0.0-1.0) % Sodium 140 (136-145) mmol/L Potassium 4.7 (3.5-5.1) mmol/L Chloride 102 (98-107) mmol/L Carbon Dioxide 29 (21-32) mmol/L Anion Gap 13.7 H (7-13) mEq/L BUN 28 H (7-18) mg/dL Creatinine 1.16 (0.70-1.30) mg/dL Est Cr Clr Drug Dosing 44.68 mL/min Estimated GFR (MDRD) > 60 Glucose 124 H (70-99) mg/dL POC Glucose 127 H 121 H (70-99) mg/dL Calcium 9.6 (8.5-10.1) mg/dL Carmelo Results Last 24 Hours: Microbiology 08/08/21 09:25 Aerobic Blood Culture - Preliminary Blood - Arm, Left NO GROWTH AFTER 3 DAYS Anaerobic Blood Culture - Final 08/08/21 09:33 Aerobic Blood Culture - Preliminary Blood - Arm, Right NO GROWTH AFTER 3 DAYS Anaerobic Blood Culture - Preliminary NO GROWTH AFTER 3 DAYS Med Orders - Current: Current Medications Albuterol/Ipratropium (Albuterol/Ipratropium 3.0-0.5 Mg/3 Ml Neb Soln) 3 ml NEB Q2H PRN PRN Reason: Dyspnea Albuterol/Ipratropium (Albuterol/Ipratropium 3.0-0.5 Mg/3 Ml Neb Soln) 3 ml NEB QIDRT [facility] Last Admin: 08/11/21 12:56 Dose: 3 ml Documented by: Aspirin (Aspirin 81 Mg Tab.Ec) 81 mg PO BEDTIME [facility] Last Admin: 08/10/21 20:53 Dose: 81 mg Documented by: Bisacodyl (Bisacodyl 5 Mg Tab) 5 mg PO DAILY PRN PRN Reason: Constipation Budesonide (Budesonide 0.5 Mg/2 Ml Neb Susp) 0.5 mg NEB BIDRT [facility] Last Admin: 08/11/21 07:37 Dose: 0.5 mg Documented by: Dextrose/Water (50% Dextrose In Water 50 Ml Syringe) 25 ml IVPUSH ASDIRECTED PRN PRN Reason: Hypoglycemia BS<70 Diphenhydramine HCl (Diphenhydramine 25 Mg Tab) 25 mg PO BEDTIME PRN PRN Reason: Allergies Docusate Sodium (Docusate Sodium 100 Mg Cap) 100 mg PO BID PRN PRN Reason: Constipation Gabapentin (Gabapentin 300 Mg Cap) 300 mg PO BEDTIME [facility] Last Admin: 08/10/21 20:52 Dose: 300 mg Documented by: Insulin Human Lispro (Insulin Lispro 100 Units/Ml 3 Ml Vial) 0 unit SUBCUT WITHMEALSANDBED [facility]; Protocol Last Admin: 08/11/21 12:55 Dose: Not Given Documented by: Levofloxacin (Levofloxacin 250 Mg Tab) 750 mg PO Q24H [facility] Stop: 08/13/21 09:01 Last Admin: 08/11/21 08:57 Dose: 750 mg Documented by: Lorazepam (Lorazepam 0.5 Mg Tab) 0.25 mg PO BEDTIME [facility] Last Admin: 08/10/21 20:53 Dose: 0.25 mg Documented by: Metformin HCl (Metformin 500 Mg Tab) 1,000 mg PO BID [facility] Last Admin: 08/11/21 08:58 Dose: 1,000 mg Documented by: Methylprednisolone Sodium Succinate (Methylprednisolone Sodium Succinate 40 Mg/1 Ml Sdv) 40 mg IVPUSH Q8HR [facility] Last Admin: 08/11/21 05:33 Dose: 40 mg Documented by: Mirtazapine (Mirtazapine 15 Mg Tab) 7.5 mg PO BEDTIME [facility] Last Admin: 08/10/21 20:53 Dose: 7.5 mg Documented by: Nitroglycerin (Nitroglycerin 0.4 Mg Tab.Sl) 0.4 mg SL ASDIRECTED PRN PRN Reason: Chest Pain Omeprazole (Omeprazole 20 Mg Cap.Cr) 20 mg PO BIDAC [facility] Last Admin: 08/11/21 05:33 Dose: 20 mg Documented by: Oxycodone HCl (Oxycodone 5 Mg Tab) 5 mg PO Q4H PRN PRN Reason: Pain (moderate 4-6) Polyethylene Glycol (Polyethylene Glycol 3350 Powder 17 Gm Packet) 17 gm PO DAILY [facility] Last Admin: 08/11/21 08:56 Dose: 17 gm Documented by: Rosuvastatin Calcium (Rosuvastatin 10 Mg Tab) 2.5 mg PO MoWeFr@0900 [facility] Last Admin: 08/11/21 09:01 Dose: 2.5 mg Documented by: Senna/Docusate Sodium (Docusate Sodium/Sennosides 50-8.6 Mg Tab) 2 tab PO BID [facility] Last Admin: 08/11/21 08:59 Dose: 2 tab Documented by: Topiramate (Topiramate 100 Mg Tab) 200 mg PO BEDTIME [facility] Last Admin: 08/10/21 20:52 Dose: 200 mg Documented by: Discontinued Medications Albuterol (Albuterol 6.7 Gm Inhaler) 0 gm INH Q6H PRN PRN Reason: Dyspnea Albuterol/Ipratropium (Albuterol/Ipratropium 3.0-0.5 Mg/3 Ml Neb Soln) 3 ml NEB ONETIME ONE Stop: 08/08/21 09:15 Last Admin: 08/08/21 09:37 Dose: 3 ml Documented by: Albuterol/Ipratropium (Albuterol/Ipratropium 3.0-0.5 Mg/3 Ml Neb Soln) 3 ml NEB Q4HRRT [facility] Last Admin: 08/11/21 09:46 Dose: Not Given Documented by: Formoterol Fumarate (Formoterol 20 Mcg/2 Ml Neb) 20 mcg INH BIDRT [facility] Last Admin: 08/11/21 09:46 Dose: Not Given Documented by: Levofloxacin/Dextrose 500 mg/ (Premix) 100 mls @ 100 mls/hr IV ONETIME ONE Stop: 08/08/21 10:14 Last Admin: 08/08/21 09:47 Dose: 100 mls/hr Documented by: Lactulose (Lactulose Soln 10 Gm/15 Ml 30 Ml Ud Cup) 20 gm PO Q6H [facility] Stop: 08/10/21 17:31 Last Admin: 08/10/21 17:37 Dose: 20 gm Documented by: Methylprednisolone Sodium Succinate (Methylprednisolone Sodium Succinate 125 Mg/2 Ml Sdv) 125 mg IVPUSH ONETIME ONE Stop: 08/08/21 09:15 Last Admin: 08/08/21 09:54 Dose: 125 mg Documented by: Methylprednisolone Sodium Succinate (Methylprednisolone Sodium Succinate 40 Mg/1 Ml Sdv) 80 mg IVPUSH Q8HR [facility] Last Admin: 08/09/21 06:08 Dose: 80 mg Documented by: Polyethylene Glycol (Polyethylene Glycol 3350 Powder 17 Gm Packet) 17 gm PO DAILY PRN PRN Reason: Constipation Sodium Chloride (Sodium Chloride 0.9% 10 Ml Syringe) 10 ml FLUSH ASDIRECTED PRN PRN Reason: Keep Vein Open Last Admin: 08/08/21 09:57 Dose: 10 ml Documented by: - Exam Quality Assessment: Supplemental Oxygen General: Alert, Oriented Lungs: Decreased Breath Sounds, Rhonchi. No: Wheezing Cardiovascular: Regular Rate, Regular Rhythm GI/Abdominal Exam: Normal Bowel Sounds, Soft, Non-Tender Extremities: No Pedal Edema - Patient Data Lab Results Last 24 hrs: Laboratory Results - last 24 hr 08/10/21 08/10/21 08/11/21 Range/Units 16:21 20:18 05:20 WBC 14.6 H (5.0-10.0) 10^3/uL RBC 3.72 L (4.6-6.2) 10^6/uL Hgb 11.4 L (14.0-18.0) g/dL Hct 37.3 L (40.0-54.0) % MCV 100.3 H (80-100) fL MCH 30.6 (27.0-34.0) pg MCHC 30.6 L (33.0-35.0) g/dL Plt Count 275 (150-450) 10^3/uL Neut % (Auto) 94.4 H (42.2-75.2) % Lymph % (Auto) 2.7 L (20.5-50.1) % Harvey % (Auto) 2.8 (2-8) % Eos % (Auto) 0.0 L (1.0-3.0) % Baso % (Auto) 0.1 (0.0-1.0) % Sodium (136-145) mmol/L Potassium (3.5-5.1) mmol/L Chloride (98-107) mmol/L Carbon Dioxide (21-32) mmol/L Anion Gap (7-13) mEq/L BUN (7-18) mg/dL Creatinine (0.70-1.30) mg/dL Est Cr Clr Drug Dosing mL/min Estimated GFR (MDRD) Glucose (70-99) mg/dL POC Glucose 99 117 H (70-99) mg/dL Calcium (8.5-10.1) mg/dL 08/11/21 08/11/21 08/11/21 Range/Units 05:20 07:59 11:55 WBC (5.0-10.0) 10^3/uL RBC (4.6-6.2) 10^6/uL Hgb (14.0-18.0) g/dL Hct (40.0-54.0) % MCV (80-100) fL MCH (27.0-34.0) pg MCHC (33.0-35.0) g/dL Plt Count (150-450) 10^3/uL Neut % (Auto) (42.2-75.2) % Lymph % (Auto) (20.5-50.1) % Harvey % (Auto) (2-8) % Eos % (Auto) (1.0-3.0) % Baso % (Auto) (0.0-1.0) % Sodium 140 (136-145) mmol/L Potassium 4.7 (3.5-5.1) mmol/L Chloride 102 (98-107) mmol/L Carbon Dioxide 29 (21-32) mmol/L Anion Gap 13.7 H (7-13) mEq/L BUN 28 H (7-18) mg/dL Creatinine 1.16 (0.70-1.30) mg/dL Est Cr Clr Drug Dosing 44.68 mL/min Estimated GFR (MDRD) > 60 Glucose 124 H (70-99) mg/dL POC Glucose 127 H 121 H (70-99) mg/dL Calcium 9.6 (8.5-10.1) mg/dL Result Diagrams: 08/11/21 05:20 08/11/21 05:20 Carmelo Results Last 24 hrs: Microbiology 08/08/21 09:25 Aerobic Blood Culture - Preliminary Blood - Arm, Left NO GROWTH AFTER 3 DAYS Anaerobic Blood Culture - Final 08/08/21 09:33 Aerobic Blood Culture - Preliminary Blood - Arm, Right NO GROWTH AFTER 3 DAYS Anaerobic Blood Culture - Preliminary NO GROWTH AFTER 3 DAYS Sepsis Event Note - Evaluation Sepsis Screening Result: No Definite Risk - Focused Exam Vital Signs: Vital Signs Temp Pulse Resp BP Pulse Ox Pulse Ox 08/11/21 12:00 98.2 F 94 16 125/68 99 08/11/21 11:00 100 08/11/21 08:00 97.2 F 64 16 120/72 96 08/11/21 07:00 89 97 08/11/21 04:00 98.2 F 93 18 123/75 92 L - Problem List & Annotations (1) T2DM (type 2 diabetes mellitus) SNOMED Code(s): 05192864 Code(s): E11.9 - TYPE 2 DIABETES MELLITUS WITHOUT COMPLICATIONS Status: Acute Current Visit: Yes (2) Acute on chronic respiratory failure SNOMED Code(s): 02619301 Code(s): J96.20 - ACUTE AND CHR RESP FAILURE, UNSP W HYPOXIA OR HYPERCAPNIA Status: Acute Current Visit: No Qualifiers: Respiratory failure complication: unspecified whether with hypoxia or hypercapnia Qualified Code(s): J96.20 - Acute and chronic respiratory failure, unspecified whether with hypoxia or hypercapnia (3) COPD exacerbation SNOMED Code(s): 306080965 Code(s): J44.1 - CHRONIC OBSTRUCTIVE PULMONARY DISEASE W (ACUTE) EXACERBATION Status: Acute Current Visit: No (4) Hypertension SNOMED Code(s): 10110359 Code(s): I10 - ESSENTIAL (PRIMARY) HYPERTENSION Status: Acute Current Visit: No Onset Date: 02/13/15 - Problem List Review Problem List Initiated/Reviewed/Updated: Yes - My Orders Last 24 Hours: My Active Orders 08/11/21 09:00 Rosuvastatin [Crestor] 2.5 mg PO MoWeFr@0900 polyethylene glycoL 3350 [MiraLAX] 17 gm PO DAILY - Plan Plan:: h/o copd , chronic hypoxemic respiratory failure with 4 l/min nc home oxygen COPD exacerbation. Patient has a end-stage COPD. treat with IV solumedrol - taper dose treat with pulmicort BID, duone qid + prn cont Levaquin orally. Tobacco abuse -Over smoking cessation counseling Diabetes mellitus -treat with metformin follow BS treat with supplemental insulin and hypoglycemia protocol as needed CAD status CABG -Stable. continue on aspirin and statin Hyperlipidemia -On statin Full CODE STATUS
[2021-08-11] MEDS: LORazepam 0.5 MG Tab PO SCH (20:10)
[2021-08-11] MEDS: Gabapentin 300 MG Cap PO SCH (21:17)
[2021-08-11] MEDS: Aspirin 81 MG Tab.EC PO SCH (21:17)
[2021-08-11] MEDS: Mirtazapine 15 MG Tab PO SCH (21:18)
[2021-08-11] MEDS: Topiramate 100 MG Tab PO SCH (21:18)
[2021-08-11] MEDS ORDERED: Calcium Carbonate 500 MG Tab.Chew PO PRN (21:58)
[2021-08-12] MEDS: Omeprazole 20 MG Cap.CR PO SCH (05:46)
[2021-08-12 06:19] LABS: ANION GAP 11.5 mEq/L (7-13)
[2021-08-12] MEDS: Albuterol/Ipratropium 3.0-0.5 MG/3 ML Neb Soln NEB SCH ×2 (07:17→11:37)
[2021-08-12] MEDS: Budesonide 0.5 MG/2 ML Neb Susp NEB SCH (07:36)
[2021-08-12] MEDS: Polyethylene Glycol 3350 Powder 17 GM Packet PO SCH (09:12)
[2021-08-12] MEDS: Levofloxacin 250 MG Tab PO SCH (09:13)
[2021-08-12] MEDS: methylPREDNISolone Sodium Succinate 40 MG/1 ML SDV IVPUSH SCH (09:14)
[2021-08-12] MEDS: metFORMIN 500 MG Tab PO SCH (09:14)
[2021-08-12] MEDS: Insulin Lispro 100 Units/ML 3 ML Vial SUBCUT SCH ×2 (09:17→12:00)
--- NOTE | 2021-08-12 11:05 | PCM.DCSUM1 ---
Discharge Summary - Hospital Course Free Text/Narrative:: Mr. Metzger is a 68-year-old male with history of end-stage COPD and tobacco abuse who presents to the ED with complaints of worsening dyspnea for the past several days. Patient states he been short of breath for the past couple of months however his symptoms have gotten worse over the past 24-48 hours despite using his home nebulizers and albuterol inhalor. He had an appointment with the PCP regarding the COPD flare few days ago and was told that he might be developing a pneumonia. He continues to smoke at least 2 cigarettes a day. He is on chronic prednisone therapy for his end stage COPD. He has a history of exposure to a lot of respiratory toxins during his time as a young man. He says he was exposed to agent orange while in [place], later on he worked at a [employer]. 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 h/o copd , chronic hypoxemic respiratory failure with 4 l/min nc home oxygen COPD exacerbation. Patient has a end-stage COPD. appears back to baseline treated with IV solumedrol - taper prednisone dose treat with pulmicort BID, formoterol, cont Levaquin orally. Tobacco abuse -Over smoking cessation counseling Diabetes mellitus -treat with metformin CAD status CABG -Stable. continue on aspirin and statin Hyperlipidemia -On statin Diagnosis: Stroke: No Modified Spink Scale: No Signif.Disability Despite Sympt.Able to Carry Out Usual Act./Duties Modified Tyler Scale Score: 1 - Discharge Data Discharge Date: 08/12/21 Discharge Disposition: Home, Self-Care 01 Condition: Good - Referral to Home Health Primary Care Physician: PCP None - Discharge Diagnosis/Problem(s) (1) T2DM (type 2 diabetes mellitus) SNOMED Code(s): 70026167 ICD Code: E11.9 - TYPE 2 DIABETES MELLITUS WITHOUT COMPLICATIONS Status: Acute Current Visit: Yes (2) Acute on chronic respiratory failure SNOMED Code(s): 63662866 ICD Code: J96.20 - ACUTE AND CHR RESP FAILURE, UNSP W HYPOXIA OR HYPERCAPNIA Status: Acute Current Visit: No Qualifiers: Respiratory failure complication: unspecified whether with hypoxia or hypercapnia Qualified Code(s): J96.20 - Acute and chronic respiratory failure, unspecified whether with hypoxia or hypercapnia (3) COPD exacerbation SNOMED Code(s): 570531204 ICD Code: J44.1 - CHRONIC OBSTRUCTIVE PULMONARY DISEASE W (ACUTE) EXACERBATION Status: Acute Current Visit: No (4) Hypertension SNOMED Code(s): 38804247 ICD Code: I10 - ESSENTIAL (PRIMARY) HYPERTENSION Status: Acute Current Visit: No Onset Date: 02/13/15 - Patient Instructions Diet: Heart Healthy Diet Activity: As Tolerated - Discharge Plan *PRESCRIPTION DRUG MONITORING PROGRAM REVIEWED*: Not Applicable *COPY OF PRESCRIPTION DRUG MONITORING REPORT IN PATIENT ERNESTINA: Not Applicable Prescriptions/Med Rec: levoFLOXacin [Levaquin] 750 mg PO Q24H #7 tablet predniSONE [Prednisone] 5 mg PO DAILY #63 tablet Home Medications: Home Meds Albuterol [Proventil HFA] 2 puff INH Q4H PRN 01/31/14 [History] Aspirin [Ecotrin EC] 81 mg PO BEDTIME 01/31/14 [History] Gabapentin [Neurontin] 300 mg PO BEDTIME 01/31/14 [History] Tiotropium [Spiriva HandiHaler] 18 mcg INH DAILY 02/13/15 [History] Ibuprofen 200 mg PO BID PRN 07/17/18 [History] Mirtazapine 7.5 mg PO BEDTIME 07/17/18 [History] Topiramate 200 mg PO BEDTIME 07/17/18 [History] metFORMIN HCl [Metformin HCl] 1,000 mg PO BID 07/18/18 [History] Albuterol [Proventil Neb Soln] 3 ml INH Q4HR PRN 02/13/19 [History] Sennosides/Docusate Sodium [Senna-S] 2 tab PO BID 02/13/19 [History] polyethylene glycoL 3350 [MiraLAX] 17 gm PO DAILY PRN 02/13/19 [History] Menthol/Zinc Oxide [Calmoseptine] 1 applic TOP TID PRN 12/23/19 [History] Acetaminophen 975 mg PO Q6H PRN 08/08/21 [History] Budesonide [Pulmicort] 2 ml NEB BID 08/08/21 [History] Formoterol [Perforomist] 2 ml INH Q12H 08/08/21 [History] Furosemide 20 mg PO DAILY PRN 08/08/21 [History] LORazepam [Ativan] 0.25 mg PO BEDTIME 08/08/21 [History] Omeprazole 20 mg PO BIDAC 08/08/21 [History] Rosuvastatin [Crestor] 2.5 mg PO MOWEFR 08/08/21 [History] diphenhydrAMINE [Benadryl] 25 mg PO BEDTIME PRN 08/08/21 [History] levoFLOXacin [Levaquin] 750 mg PO Q24H #7 tablet 08/12/21 [Rx] predniSONE [Prednisone] 5 mg PO DAILY #63 tablet 08/12/21 [Rx] Oxygen Therapy Mode: Nasal Cannula Oxygen Flow Rate (L/min): 4 Forms: ED Department Discharge Referrals: Cara Mendez NP [Ordering Only Provider] - (Post hospital follow up appointment for SaturdayAugust 18 @ 10:20am.) - Discharge Summary/Plan Comment DC Time >30 min.: No Total # of Minutes for Discharge Time: 20 min - General Info Date of Service: 08/12/21 Admission Dx/Problem (Free Text: Admission Diagnosis/Problem Admission Diagnosis/Problem COPD, Moderate chronic obstructive pulmonary disease Subjective Update: continues to have moderate SOB - he feels back to baseline no fever no cp has remained on 4 l/min nc oxygen - that is his baseline Functional Status: Reports: Tolerating Diet, Ambulating - Review of Systems General: Reports: Weakness. Denies: Fever Pulmonary: Reports: Shortness of Breath (chronic) Cardiovascular: Denies: Chest Pain Gastrointestinal: Denies: Abdominal Pain Psychiatric: Denies: Confusion - Patient Data Vitals - Most Recent: Last Vital Signs Temp 96.7 F L 08/12/21 08:00 Pulse 91 08/12/21 08:00 Resp 20 08/12/21 08:00 BP 109/47 L 08/12/21 08:00 Pulse Ox 94 L 08/12/21 11:00 Weight - Most Recent: 122 lb 12.8 oz I&O - Last 24 hours: Intake & Output 08/11/21 08/12/21 08/12/21 22:59 06:59 14:59 Intake Total 410 320 Balance 410 320 Lab Results - Last 24 hrs: Laboratory Results - last 24 hr 08/11/21 08/11/21 08/11/21 Range/Units 11:55 16:47 21:14 WBC (5.0-10.0) 10^3/uL RBC (4.6-6.2) 10^6/uL Hgb (14.0-18.0) g/dL Hct (40.0-54.0) % MCV (80-100) fL MCH (27.0-34.0) pg MCHC (33.0-35.0) g/dL Plt Count (150-450) 10^3/uL Neut % (Auto) (42.2-75.2) % Lymph % (Auto) (20.5-50.1) % [place] % (Auto) (2-8) % Eos % (Auto) (1.0-3.0) % Baso % (Auto) (0.0-1.0) % Sodium (136-145) mmol/L Potassium (3.5-5.1) mmol/L Chloride (98-107) mmol/L Carbon Dioxide (21-32) mmol/L Anion Gap (7-13) mEq/L BUN (7-18) mg/dL Creatinine (0.70-1.30) mg/dL Est Cr Clr Drug Dosing mL/min Estimated GFR (MDRD) Glucose (70-99) mg/dL POC Glucose 121 H 60 L 110 H (70-99) mg/dL Calcium (8.5-10.1) mg/dL 08/12/21 08/12/21 08/12/21 Range/Units 05:30 05:30 07:30 WBC 11.3 H (5.0-10.0) 10^3/uL RBC 3.75 L (4.6-6.2) 10^6/uL Hgb 11.5 L (14.0-18.0) g/dL Hct 37.0 L (40.0-54.0) % MCV 98.7 (80-100) fL MCH 30.7 (27.0-34.0) pg MCHC 31.1 L (33.0-35.0) g/dL Plt Count 242 (150-450) 10^3/uL Neut % (Auto) 88.0 H (42.2-75.2) % Lymph % (Auto) 4.8 L (20.5-50.1) % [place] % (Auto) 7.0 (2-8) % Eos % (Auto) 0.1 L (1.0-3.0) % Baso % (Auto) 0.1 (0.0-1.0) % Sodium 140 (136-145) mmol/L Potassium 4.5 (3.5-5.1) mmol/L Chloride 101 (98-107) mmol/L Carbon Dioxide 32 (21-32) mmol/L Anion Gap 11.5 (7-13) mEq/L BUN 28 H (7-18) mg/dL Creatinine 1.19 (0.70-1.30) mg/dL Est Cr Clr Drug Dosing 43.56 mL/min Estimated GFR (MDRD) 60 Glucose 131 H (70-99) mg/dL POC Glucose 100 H (70-99) mg/dL Calcium 9.3 (8.5-10.1) mg/dL DANAY Results - Last 24 hrs: Microbiology 08/08/21 09:25 Aerobic Blood Culture - Preliminary Blood - Arm, Left NO GROWTH AFTER 4 DAYS Anaerobic Blood Culture - Final 08/08/21 09:33 Aerobic Blood Culture - Preliminary Blood - Arm, Right NO GROWTH AFTER 4 DAYS Anaerobic Blood Culture - Preliminary NO GROWTH AFTER 4 DAYS Med Orders - Current: Current Medications Albuterol/Ipratropium (Albuterol/Ipratropium 3.0-0.5 Mg/3 Ml Neb Soln) 3 ml NEB Q2H PRN PRN Reason: Dyspnea Last Admin: 08/12/21 03:50 Dose: 3 ml Documented by: Albuterol/Ipratropium (Albuterol/Ipratropium 3.0-0.5 Mg/3 Ml Neb Soln) 3 ml NEB QIDRT [facility] Last Admin: 08/12/21 07:17 Dose: 3 ml Documented by: Aspirin (Aspirin 81 Mg Tab.Ec) 81 mg PO BEDTIME [facility] Last Admin: 08/11/21 21:17 Dose: 81 mg Documented by: Bisacodyl (Bisacodyl 5 Mg Tab) 5 mg PO DAILY PRN PRN Reason: Constipation Budesonide (Budesonide 0.5 Mg/2 Ml Neb Susp) 0.5 mg NEB BIDRT [facility] Last Admin: 08/11/21 18:50 Dose: 0.5 mg Documented by: Calcium Carbonate/Glycine (Calcium Carbonate 500 Mg Tab.Chew) 500 mg PO Q6H PRN PRN Reason: Heartburn Dextrose/Water (50% Dextrose In Water 50 Ml Syringe) 25 ml IVPUSH ASDIRECTED PRN PRN Reason: Hypoglycemia BS<70 Diphenhydramine HCl (Diphenhydramine 25 Mg Tab) 25 mg PO BEDTIME PRN PRN Reason: Allergies Gabapentin (Gabapentin 300 Mg Cap) 300 mg PO BEDTIME [facility] Last Admin: 08/11/21 21:17 Dose: 300 mg Documented by: Insulin Human Lispro (Insulin Lispro 100 Units/Ml 3 Ml Vial) 0 unit SUBCUT WITHMEALSANDBED [facility]; Protocol Last Admin: 08/12/21 09:17 Dose: Not Given Documented by: Levofloxacin (Levofloxacin 250 Mg Tab) 750 mg PO Q24H [facility] Stop: 08/13/21 09:01 Last Admin: 08/12/21 09:13 Dose: 750 mg Documented by: Lorazepam (Lorazepam 0.5 Mg Tab) 0.25 mg PO BEDTIME [facility] Last Admin: 08/11/21 20:10 Dose: 0.25 mg Documented by: Metformin HCl (Metformin 500 Mg Tab) 1,000 mg PO BID [facility] Last Admin: 08/12/21 09:14 Dose: 1,000 mg Documented by: Methylprednisolone Sodium Succinate (Methylprednisolone Sodium Succinate 40 Mg/1 Ml Sdv) 40 mg IVPUSH BID [facility] Last Admin: 08/12/21 09:14 Dose: 40 mg Documented by: Mirtazapine (Mirtazapine 15 Mg Tab) 7.5 mg PO BEDTIME [facility] Last Admin: 08/11/21 21:18 Dose: 7.5 mg Documented by: Nitroglycerin (Nitroglycerin 0.4 Mg Tab.Sl) 0.4 mg SL ASDIRECTED PRN PRN Reason: Chest Pain Omeprazole (Omeprazole 20 Mg Cap.Cr) 20 mg PO BIDAC [facility] Last Admin: 08/12/21 05:46 Dose: 20 mg Documented by: Oxycodone HCl (Oxycodone 5 Mg Tab) 5 mg PO Q4H PRN PRN Reason: Pain (moderate 4-6) Polyethylene Glycol (Polyethylene Glycol 3350 Powder 17 Gm Packet) 17 gm PO DAILY [facility] Last Admin: 08/12/21 09:12 Dose: 17 gm Documented by: Rosuvastatin Calcium (Rosuvastatin 10 Mg Tab) 2.5 mg PO MoWeFr@0900 [facility] Last Admin: 08/11/21 09:01 Dose: 2.5 mg Documented by: Senna/Docusate Sodium (Docusate Sodium/Sennosides 50-8.6 Mg Tab) 2 tab PO BID [facility] Last Admin: 08/12/21 09:13 Dose: 2 tab Documented by: Topiramate (Topiramate 100 Mg Tab) 200 mg PO BEDTIME [facility] Last Admin: 08/11/21 21:18 Dose: 200 mg Documented by: Discontinued Medications Albuterol (Albuterol 6.7 Gm Inhaler) 0 gm INH Q6H PRN PRN Reason: Dyspnea Albuterol/Ipratropium (Albuterol/Ipratropium 3.0-0.5 Mg/3 Ml Neb Soln) 3 ml NEB ONETIME ONE Stop: 08/08/21 09:15 Last Admin: 08/08/21 09:37 Dose: 3 ml Documented by: Albuterol/Ipratropium (Albuterol/Ipratropium 3.0-0.5 Mg/3 Ml Neb Soln) 3 ml NEB Q4HRRT [facility] Last Admin: 08/11/21 09:46 Dose: Not Given Documented by: Docusate Sodium (Docusate Sodium 100 Mg Cap) 100 mg PO BID PRN PRN Reason: Constipation Formoterol Fumarate (Formoterol 20 Mcg/2 Ml Neb) 20 mcg INH BIDRT [facility] Last Admin: 08/11/21 09:46 Dose: Not Given Documented by: Levofloxacin/Dextrose 500 mg/ (Premix) 100 mls @ 100 mls/hr IV ONETIME ONE Stop: 08/08/21 10:14 Last Admin: 08/08/21 09:47 Dose: 100 mls/hr Documented by: Lactulose (Lactulose Soln 10 Gm/15 Ml 30 Ml Ud Cup) 20 gm PO Q6H [facility] Stop: 08/10/21 17:31 Last Admin: 08/10/21 17:37 Dose: 20 gm Documented by: Methylprednisolone Sodium Succinate (Methylprednisolone Sodium Succinate 125 Mg/2 Ml Sdv) 125 mg IVPUSH ONETIME ONE Stop: 08/08/21 09:15 Last Admin: 08/08/21 09:54 Dose: 125 mg Documented by: Methylprednisolone Sodium Succinate (Methylprednisolone Sodium Succinate 40 Mg/1 Ml Sdv) 80 mg IVPUSH Q8HR [facility] Last Admin: 08/09/21 06:08 Dose: 80 mg Documented by: Methylprednisolone Sodium Succinate (Methylprednisolone Sodium Succinate 40 Mg/1 Ml Sdv) 40 mg IVPUSH Q8HR [facility] Last Admin: 08/11/21 05:33 Dose: 40 mg Documented by: Polyethylene Glycol (Polyethylene Glycol 3350 Powder 17 Gm Packet) 17 gm PO DAILY PRN PRN Reason: Constipation Sodium Chloride (Sodium Chloride 0.9% 10 Ml Syringe) 10 ml FLUSH ASDIRECTED PRN PRN Reason: Keep Vein Open Last Admin: 08/08/21 09:57 Dose: 10 ml Documented by: - Exam Quality Assessment: Reports: Supplemental Oxygen (3.5 l/min) General: Reports: Alert, Oriented Neck: Reports: Supple Lungs: Reports: Normal Respiratory Effort, Decreased Breath Sounds. Denies: Rhonchi, Wheezing Cardiovascular: Reports: Regular Rate, Regular Rhythm GI/Abdominal Exam: Normal Bowel Sounds, Soft, Non-Tender Extremities: No Pedal Edema Skin: Reports: Warm, Dry Neurological: Reports: No New Focal Deficit Psy/Mental Status: Reports: Alert, Normal Affect, Normal Mood
[2021-08-12 12:01] VITALS: BP 111/73; PULSE 91
== END 2021-08-12 13:50 | disposition home or self-care (01) | DRG 190 ==
LOC: DL.ED 08:39 → DL.MS 10:39
PROVIDERS: ADMIT Hospitalist; ATTEND Hospitalist
DX: J44.1 Chronic obstructive pulmonary disease with (acute) exacerbation (principal); J96.20 Acute and chronic respiratory failure, unspecified whether with hypoxia or hypercapnia; F17.210 Nicotine dependence, cigarettes, uncomplicated; I25.10 Atherosclerotic heart disease of native coronary artery without angina pectoris; I10 Essential (primary) hypertension; H54.7 Unspecified visual loss; E78.00 Pure hypercholesterolemia, unspecified; G47.30 Sleep apnea, unspecified; K21.9 Gastro-esophageal reflux disease without esophagitis; E11.42 Type 2 diabetes mellitus with diabetic polyneuropathy; Z20.822 Contact with and (suspected) exposure to COVID-19; G30.9 Alzheimer's disease, unspecified; F02.80 Dementia in other diseases classified elsewhere, unspecified severity, without behavioral disturbance, psychotic disturbance, mood disturbance, and anxiety; F41.9 Anxiety disorder, unspecified; F43.10 Post-traumatic stress disorder, unspecified; J84.10 Pulmonary fibrosis, unspecified; N42.9 Disorder of prostate, unspecified; R33.9 Retention of urine, unspecified; Z79.84 Long term (current) use of oral hypoglycemic drugs; Z95.1 Presence of aortocoronary bypass graft; Z88.2 Allergy status to sulfonamides; Z71.6 Tobacco abuse counseling; Z88.8 Allergy status to other drugs, medicaments and biological substances; Z88.1 Allergy status to other antibiotic agents; Z79.82 Long term (current) use of aspirin; Z79.52 Long term (current) use of systemic steroids; I25.2 Old myocardial infarction; Z28.82 Immunization not carried out because of caregiver refusal; Z87.01 Personal history of pneumonia (recurrent); Z79.51 Long term (current) use of inhaled steroids; Z79.899 Other long term (current) drug therapy
CPT/HCPCS: 0240U; 36415; 71045; 80048; 80053; 81003; 82947; 83605; 83880; 84484; 85025; 87040; 93005; 94640; 96365; 96375; 99285; A9270-GY; J1956; J2920; J2930; J7620-GY

== ENCOUNTER 2021-12-12 13:54 | Emergency (ER) | payer MEDICARE, BC ==
[2021-12-12 14:22] LABS: BASE EXCESS ARTERIAL -7 mmol/L ((-2)-(+3)); BICARBONATE,ARTERIAL 21.1 mmol/L (22-26); O2 DELIVERY DEVICE NASAL CANNULA; O2 SATURATION ARTERIAL 95 % (95-100); PCO2 ARTERIAL 57 mmHg (35-45); PO2 ARTERIAL 94 mmHg (70-100)
[2021-12-12 14:25] LABS: ALLEN TEST rb; O2 FLOW RATE 4
[2021-12-12 14:49] VITALS: BP 105/72; PULSE 78
[2021-12-12] MEDS: Furosemide 40 MG/4 ML VIAL IVPUSH ONE (14:55)
[2021-12-12 16:04] LABS: CORONAVIRUS COVID-19 NAA NEGATIVE (NEGATIVE)
== END 2021-12-12 15:29 ==
LOC: DL.ED 13:54
DX: I11.0 Hypertensive heart disease with heart failure (principal); I50.9 Heart failure, unspecified; R79.0 Abnormal level of blood mineral; E78.00 Pure hypercholesterolemia, unspecified; I25.2 Old myocardial infarction; J44.9 Chronic obstructive pulmonary disease, unspecified; K21.9 Gastro-esophageal reflux disease without esophagitis; E11.9 Type 2 diabetes mellitus without complications; Z88.1 Allergy status to other antibiotic agents; Z91.011 Allergy to milk products; Z88.2 Allergy status to sulfonamides; Z88.8 Allergy status to other drugs, medicaments and biological substances; Z79.82 Long term (current) use of aspirin; Z79.899 Other long term (current) drug therapy; Z20.822 Contact with and (suspected) exposure to COVID-19
CPT/HCPCS: 0240U; 36600; 82803; 96374; 99285; J1940

== ENCOUNTER 2021-12-20 10:11 | Inpatient (IN) | payer MEDICARE, BC ==
[2021-12-20] MEDS ORDERED: Ondansetron 4 MG/2 ML SDV IVPUSH PRN (13:01)
[2021-12-20] MEDS: Morphine 2 MG/ML SYRINGE IVPUSH PRN ×2 (13:27→18:17)
[2021-12-20] MEDS: Atropine 1% Ophth Soln 5 ML BOTTLE SL PRN (13:28)
[2021-12-20] MEDS: LORazepam 2 MG/ML SDV IVPUSH PRN ×2 (15:10→21:10)
[2021-12-21] MEDS: Morphine 2 MG/ML SYRINGE IVPUSH PRN ×6 (00:53→22:42)
[2021-12-21] MEDS: LORazepam 2 MG/ML SDV IVPUSH PRN ×5 (02:11→21:18)
[2021-12-21 07:53] VITALS: BP 144/96; PULSE 102
[2021-12-21] MEDS: Atropine 1% Ophth Soln 5 ML BOTTLE SL PRN (14:09)
[2021-12-21] MEDS ORDERED: Sodium Chloride 0.9% 10 ML Syringe FLUSH PRN (15:24)
[2021-12-22] MEDS: Morphine 2 MG/ML SYRINGE IVPUSH PRN ×2 (03:12→08:22)
[2021-12-22] MEDS: LORazepam 2 MG/ML SDV IVPUSH PRN (06:14)
[2021-12-22] MEDS ORDERED: Scopolamine 1.5 MG Transdermal Patch TRDERM SCH (09:00)
== END 2021-12-22 15:20 | disposition expired | DRG 951 ==
LOC: UNDOADMIN 12:03 → DL.MS 12:03
PROVIDERS: ADMIT Internal Medicine; ATTEND Internal Medicine
DX: Z51.5 Encounter for palliative care (principal); J96.20 Acute and chronic respiratory failure, unspecified whether with hypoxia or hypercapnia; J18.9 Pneumonia, unspecified organism; N17.9 Acute kidney failure, unspecified; E46 Unspecified protein-calorie malnutrition; I50.32 Chronic diastolic (congestive) heart failure; Z68.1 Body mass index [BMI] 19.9 or less, adult; J44.0 Chronic obstructive pulmonary disease with (acute) lower respiratory infection; J44.1 Chronic obstructive pulmonary disease with (acute) exacerbation; I11.0 Hypertensive heart disease with heart failure; E78.5 Hyperlipidemia, unspecified; I25.10 Atherosclerotic heart disease of native coronary artery without angina pectoris; H54.7 Unspecified visual loss; E78.00 Pure hypercholesterolemia, unspecified; G47.30 Sleep apnea, unspecified; J84.10 Pulmonary fibrosis, unspecified; G43.909 Migraine, unspecified, not intractable, without status migrainosus; E11.42 Type 2 diabetes mellitus with diabetic polyneuropathy; G30.9 Alzheimer's disease, unspecified; F02.80 Dementia in other diseases classified elsewhere, unspecified severity, without behavioral disturbance, psychotic disturbance, mood disturbance, and anxiety; F41.9 Anxiety disorder, unspecified; F43.10 Post-traumatic stress disorder, unspecified; D64.9 Anemia, unspecified; E11.65 Type 2 diabetes mellitus with hyperglycemia; N40.1 Benign prostatic hyperplasia with lower urinary tract symptoms; R33.8 Other retention of urine; L89.159 Pressure ulcer of sacral region, unspecified stage; E11.622 Type 2 diabetes mellitus with other skin ulcer; K21.9 Gastro-esophageal reflux disease without esophagitis; E11.51 Type 2 diabetes mellitus with diabetic peripheral angiopathy without gangrene; F17.200 Nicotine dependence, unspecified, uncomplicated; Z95.1 Presence of aortocoronary bypass graft; Z88.2 Allergy status to sulfonamides; Z88.1 Allergy status to other antibiotic agents; Z91.011 Allergy to milk products; I25.2 Old myocardial infarction; Z87.01 Personal history of pneumonia (recurrent); Z98.890 Other specified postprocedural states; Z99.81 Dependence on supplemental oxygen
CPT/HCPCS: 99306; 99315; A9270-GY; J2060; J2270; J3490